=== PATIENT | male | born 1940 | race Caucasian/White ===

== ENCOUNTER → 2016-09-02 | Outpatient (CLI) | payer OTHER ==
[~2016-09-02] MED LIST: APIX1TAB3 PO; ASPCH81X PO; ASPI-113 PO; CHOL2000 PO; GLC/500 PO; GLC5 PO; LEVO100T7 PO; LEVO50TA6 PO; MAGN400T6 PO; OMEG10007 PO; PRLSR20 PO; TPRSR/100 PO; VERA120T2 PO; [UNRECOGNIZED DRUG - CODE] PO
[2016-09-02 12:21] LABS: BASO % 0.3 %; BASO ABS # 0.02 K/uL (0-0.2); COMPLETE YES; EOS % 1.5 %; IG% 0.2 %; LYMPH ABS # 2.23 K/uL (1.2-3.4); MEAN CELL VOLUME 94.2 fL (80-100); MEAN CORPUSCULAR HEMOGLOBIN 32.7 pg (25-34); MEAN CORPUSCULAR HGB CONC 34.8 g/dl (32-36); MONO % 9.5 %; NEUT % 51.5 %; PLATELET COUNT 130 K/uL (130-400); RED BLOOD COUNT 4.46 M/uL (4.7-6.1); WHITE BLOOD COUNT 6.02 K/uL (4.8-10.8)
[2016-09-02 12:33] LABS: ALT/SGPT 33 U/L (12-78); BLOOD UREA NITROGEN 22 mg/dl (7-18); BUN/CREATININE RATIO 13.9 (10-20); CARBON DIOXIDE 24 mmol/L (21-32); CHLORIDE 104 mmol/L (98-107); CHOLESTEROL 157 mg/dl (0-200); GLUCOSE 167 mg/dl (70-99); SODIUM 139 mmol/L (136-145)
[2016-09-02 12:38] LABS: ESTIMATED AVERAGE GLUCOSE 171 mg/dl; HA1C FLAG Normal (Normal)
[2016-09-02 12:44] LABS: ALB/GLOB RATIO 0.9 (0.9-2); ALKALINE PHOSPHATASE 53 U/L (45-117); AST/SGOT 29 U/L (15-37); CHOLESTEROL/HDL RATIO 4.8; HDL CHOLESTEROL 33 mg/dl; LDL CHOLESTEROL CALCULATED 92 mg/dl; PROSTATE SPECIFIC ANTIGEN 0.555 ng/ml (0.000-4.000); TRIGLYCERIDES 162 mg/dl (0-150); VERY LOW DENSITY LIPOPROT CALC 32 mg/dl
[2016-09-02 13:11] LABS: RATIO 28.2 mcg/mg (0-30.0)
== END | disposition home or self-care (01) ==
LOC: C.LABBFT 07:27
PROVIDERS: ATTEND Internal Medicine
DX: E11.29 Type 2 diabetes mellitus with other diabetic kidney complication (principal); D69.6 Thrombocytopenia, unspecified; Z12.5 Encounter for screening for malignant neoplasm of prostate

== ENCOUNTER → 2016-12-16 | Day surgery (SDC) | payer OTHER ==
[2016-11-26 12:34] VITALS: Ht 172.7 cm; Wt 109.1 kg
[~2016-12-16] VITALS: Ht 172.7 cm; Wt 109.1 kg
[~2016-12-16] MED LIST changes: +500ML BSS 0.3ML EPI 1:1000PF IRRIG ONE; +ACETAMINOPHEN 325 MG TAB PO PRN; +AMVISC PLUS 0.8ML SYRINGE INT OCU ONE; -ASPI-113 PO; +ATROPINE SULFATE 0.1 MG/ML 5ML SYR IV PRN; +BSS FLUSH ONE; +ENDOCOAT 0.85ML SYRINGE INT OCU ONE; +EpHEDrine SULFATE INJ 50 MG/ML AMP IV PRN; +EpINEphrine INJ 1MG/ML AMP 1 MG/ML AMP ONE; +LACTATED RINGER'S 1000ML 500 ML IV SCH; -LEVO50TA6 PO; +LIDOCAINE 4% OP SOLN DROP CHARGE ONE; +LIDOCAINE 4% OP SOLN DROP CHARGE OPR SCH; +LIDOCAINE HCL 1% MPF 2 ML VIAL ONE; +MIDAZOLAM HCL 1 MG/ML 2ML VIAL ONE; +MIX: 4ML BSS 1ML EPI 1:1000 PF TOP ONE; +MOXIFLOXACIN OPH SOLN PER DROP CHARGE ONE; +ONDANSETRON INJ 2 MG/ML 2 ML VIAL IV PRN; +PHENYLEPHRINE HCL 10% OP SOLN PER DROP CHARGE OPR SCH; +POVIDONE-IODINE OP SOLN 30 ML BTL ONE; +PROPARACAINE 0.5% OP SOLN PER DROP CHARGE OPR SCH; +TOBRAMYCIN/DEXAMETHASONE OPH OINT PER APPLN CHARGE ONE; -TPRSR/100 PO
[2016-12-16] MEDS: PHENYLEPHRINE HCL 10% OP SOLN PER DROP CHARGE OPR SCH ×3 (07:24→07:33)
[2016-12-16] MEDS: TROPICAMIDE 1% OP SOLN PER DROP CHARGE OPR SCH ×3 (07:25→07:34)
[2016-12-16] MEDS: CYCLOPENTOLATE HCL 1% OP SOLN PER DROP CHARGE OPR SCH ×3 (07:26→07:35)
[2016-12-16] MEDS: MOXIFLOXACIN OPH SOLN PER DROP CHARGE OPR SCH ×3 (07:28→07:36)
--- NOTE | 2016-12-16 07:37 | History & Physical Bridge - [place] ---
H&P Re-Evaluation Bridge Note: I have examined the patient, reviewed the History & Physical and in the interval since the performance of the History & Physical I have noted the following changes of clinical significance: No changes noted
--- NOTE | 2016-12-16 08:37 | [facility] Post Operative Brief Note ---
Immediate Operative Summary Operative Date Dec 16, 2016. Pre-Operative Diagnosis Right eye cataract Post-Operative Diagnosis Same as preop Procedure(s) Performed Right Cataract Phacoemulsification With Intraocular Lens Implant Surgeon Dr. Hodges Title Curator Surgeon(s) None Estimated Blood Loss 0 mL Findings right cataract Specimens None Complication(s) None Disposition
[2016-12-16 08:38] VITALS: TEMP 36.5
--- NOTE | 2016-12-16 08:38 | [facility] Operative Report ---
Operative Report Date of Service Dec 16, 2016. Operative Report Phaco with monofocal IOL DATE OF OPERATION: 12/16/16 PREOPERATIVE DIAGNOSIS: Senile nuclear cataract, right eye POSTOPERATIVE DIAGNOSIS: Senile nuclear cataract, right eye PROCEDURE PERFORMED: Phacoemulsification with intraocular lens implantation, right eye SURGEON: Dr. Chris Hodges ANESTHESIA: Topical with 1% intracameral lidocaine and monitored anesthesia care COMPLICATIONS: None DESCRIPTION OF PROCEDURE: After positively identifying the patient both verbally and by wristband in the preoperative area, the right eye was marked as the operative eye. The patient was then brought back to the operating room by the anesthesia and nursing staff where they were given a drop of Lidocaine and betadine into the operative eye. They were then sterilely prepped and draped in the standard fashion typical for ophthalmic surgery. Steri-strips were placed along the upper eyelids to keep the lashes back, and a lid speculum was placed into the operative eye. At this point, a documented time out was performed with members of the ophthalmology, nursing, and anesthesia staffs all agreeing upon the correct patient, correct location for surgery, correct procedure, and correct type and power of intraocular lens to be implanted. The microscope was then swung into position. First, a paracentesis wound was made using a sideport blade. Then, in sequence, 1% preservative-free lidocaine followed by Endocoat viscoelastic was injected into the anterior chamber. Next , the main incision was made with a keratome blade in triplanar fashion. A sharp cystotome was introduced into the eye and used to create a tear in the anterior capsule, which was directed into a continuous curvilinear capsulorrhexis using Utrata forceps. Hydrodissection was then performed with BSS on a flat-tip cannula. Next, the phacoemulsification handpiece was introduced into the eye and used to remove the nucleus in a [id number] fashion. This was done without complication and then the irrigation-aspiration handpiece was introduced into the eye and used to remove all remaining cortical and epinuclear material. Amvisc was then injected into the anterior chamber as well as into the capsular bag and using the lens injector system, an MX60 24.5 D lens, serial number [id number], and expiration date 06/2019 was injected into the capsular bag and rotated into the correct position. Next, the irrigation- aspiration handpiece was used to remove all remaining Amvisc. BSS was used to hydrate the main wound, and then BSS was injected into the paracentesis site to reach physiologic pressure and then the main wound was checked and found to be watertight. The patient was given drops of Vigamox and Tobradex ointment into the operative eye, and then the surrounding area was cleaned and dried. A clear plastic shield was placed over the eye and the patient was then sat up and taken from the operating room by the anesthesia staff having tolerated the procedure well and suffering no complications. DISPOSITION: The patient was returned to the recovery room in stable condition. I attest to the content of the Intraoperative Record and any orders documented therein. Any exceptions are noted below.
--- NOTE | 2016-12-16 08:39 | Discharge Instructions-SurgCtr ---
Discharge Instructions Date of Service Dec 16, 2016. Visit Reason for Visit: Cataract Right Eye Discharge Discharge Diagnosis / Problem: right cataract Discharge Goals Goal(s): Decrease discomfort, Improve function Medications Stopped Medications Name(s): Metformin stopped. Last dose Wednesday. Activity Recommendations Activity Limitations: as noted below Anesthesia . Post Anesthesia Instructions: If you have had General Anesthesia or IV Sedation: * Do not drive today. * Resume driving when surgeon permits. * Do not make important decisions or sign legal documents today. * Call surgeon for: 1. Temperature elevations greater than 101 degrees F. 2. Uncontrollable pain. 3. Excessive bleeding. 4. Persistent nausea and vomiting. 5. Medication intolerance (nausea, vomiting or rash). * For nausea and vomiting use only clear liquids such as: tea, soda, bouillon until nausea subsides, then gradually increase diet as tolerated. * If you have any concerns or questions, call your surgeon's office. If physician is unavailable and it is an emergency, call 911 or go to the nearest emergency room. . Instructions / Follow-Up Instructions / Follow-Up ACTIVITY RECOMMENDATIONS: * Light activities. * You may walk outside, read, watch television. * You may notice redness on the white part of the eye and some blurry vision - this is normal. MEDICATIONS: Resume previous medications unless instructed otherwise by your surgeon. Start all eye drops at 10:30 am today: * Eye drops (today): Prednisone - one drop in operative eye every 2 hours while awake Ofloxacin - one drop in operative eye every 2 hours while awake Bromfenac - one drop in operative eye daily SPECIAL CARE INSTRUCTIONS: * Tape plastic shield over eye to sleep at night. Call your doctor at with any concerns or problems. FOLLOW UP VISIT: Follow-up with Dr Hodges at [place] office as scheduled. Diet Recommendations Home Diet: no limitations Procedures Procedures Performed: Right Cataract Phacoemulsification With Intraocular Lens Implant Pending Studies Studies pending at discharge: no Medical Emergencies . Who to Call and When: Medical Emergencies: If at any time you feel your situation is an emergency, please call 911 immediately. . Non-Emergent Contact Non-Emergency issues call your: Surgeon . . "Provider Documentation" section prepared by Chris Hodges. .
--- NOTE | 2016-12-16 08:54 | Anesthesia Progress Nt - [facility] ---
Anesthesia Post Op Note Date & Time Dec 16, 2016 at 08:54 Vital Signs Pain Intensity: 0 Vital Signs Past 12 Hours Date Time Temp Pulse Resp B/P (MAP) Pulse Ox O2 Delivery O2 Flow Rate FiO2 12/16/16 08:38 36.5 81 16 116/76 (89) 95 Room Air 12/16/16 07:17 36.4 91 18 146/88 (107) 95 Room Air Notes Mental Status: alert / awake / arousable, participated in evaluation Pt Amnestic to Procedure: Yes Nausea / Vomiting: adequately controlled Pain: adequately controlled Airway Patency, RR, SpO2: stable & adequate BP & HR: stable & adequate Hydration State: stable & adequate Anesthetic Complications: no major complications apparent
[2016-12-16 09:01] VITALS: BP 110/69; PULSE 74; O2SAT 95
== END | disposition home or self-care (01) ==
LOC: X.SURG 06:34
PROVIDERS: ATTEND Ophthalmology
DX: H25.11 Age-related nuclear cataract, right eye (principal); I10 Essential (primary) hypertension; E11.9 Type 2 diabetes mellitus without complications; Z79.4 Long term (current) use of insulin; Z79.899 Other long term (current) drug therapy; Z79.82 Long term (current) use of aspirin

== ENCOUNTER → 2016-12-30 | Day surgery (SDC) | payer OTHER ==
[2016-12-25 07:24] VITALS: Ht 172.7 cm; Wt 109.1 kg
[~2016-12-30] VITALS: Ht 172.7 cm; Wt 109.1 kg
[~2016-12-30] MED LIST changes: -EpHEDrine SULFATE INJ 50 MG/ML AMP IV PRN; +FENTANYL CITRATE INJ 50 MCG/1 ML 2 ML VIAL ONE; +LIDOCAINE 4% OP SOLN DROP CHARGE OPL SCH; -LIDOCAINE 4% OP SOLN DROP CHARGE OPR SCH; -ONDANSETRON INJ 2 MG/ML 2 ML VIAL IV PRN; -PHENYLEPHRINE HCL 10% OP SOLN PER DROP CHARGE OPR SCH; +PROPARACAINE 0.5% OP SOLN PER DROP CHARGE OPL SCH; -PROPARACAINE 0.5% OP SOLN PER DROP CHARGE OPR SCH
[2016-12-30] MEDS: PHENYLEPHRINE HCL 2.5% OP SOLN PER DROP CHARGE OPL SCH ×3 (09:10→09:25)
[2016-12-30] MEDS: TROPICAMIDE 1% OP SOLN PER DROP CHARGE OPL SCH ×3 (09:11→09:26)
[2016-12-30] MEDS: CYCLOPENTOLATE HCL 1% OP SOLN PER DROP CHARGE OPL SCH ×3 (09:12→09:27)
[2016-12-30] MEDS: MOXIFLOXACIN OPH SOLN PER DROP CHARGE OPL SCH ×3 (09:13→09:28)
--- NOTE | 2016-12-30 10:09 | [facility] Post Operative Brief Note ---
Immediate Operative Summary Operative Date Dec 30, 2016. Pre-Operative Diagnosis Left Eye Cataract Post-Operative Diagnosis Same Procedure(s) Performed Left Cataract Phacoemulsification With Intraocular Lens Implant Surgeon Dr. Ayleen Hodges Belling Machine Operator Surgeon(s) None Estimated Blood Loss None Findings left cataract Specimens None Complication(s) None Disposition
[2016-12-30 10:10] VITALS: TEMP 36.2
--- NOTE | 2016-12-30 10:10 | [facility] Operative Report ---
Operative Report Date of Service Dec 30, 2016. Operative Report DATE OF OPERATION: 12/30/16 PREOPERATIVE DIAGNOSIS: Senile nuclear cataract, left eye POSTOPERATIVE DIAGNOSIS: Senile nuclear cataract, left eye PROCEDURE PERFORMED: Phacoemulsification with intraocular lens implantation, left eye SURGEON: Dr. Chris Hodges ANESTHESIA: Topical with 1% intracameral lidocaine and monitored anesthesia care COMPLICATIONS: None DESCRIPTION OF PROCEDURE: After positively identifying the patient both verbally and by wristband in the preoperative area, the left eye was marked as the operative eye. The patient was then brought back to the operating room by the anesthesia and nursing staff where they were given a drop of Lidocaine and betadine into the operative eye. They were then sterilely prepped and draped in the standard fashion typical for ophthalmic surgery. Steri-strips were placed along the upper eyelids to keep the lashes back, and a lid speculum was placed into the operative eye. At this point, a documented time out was performed with members of the ophthalmology, nursing, and anesthesia staffs all agreeing upon the correct patient, correct location for surgery, correct procedure, and correct type and power of intraocular lens to be implanted. The microscope was then swung into position. First, a paracentesis wound was made using a sideport blade. Then, in sequence, 1% preservative-free lidocaine followed by Endocoat viscoelastic was injected into the anterior chamber. Next , the main incision was made with a keratome blade in triplanar fashion. A sharp cystotome was introduced into the eye and used to create a tear in the anterior capsule, which was directed into a continuous curvilinear capsulorrhexis using Utrata forceps. Hydrodissection was then performed with BSS on a flat-tip cannula. Next, the phacoemulsification handpiece was introduced into the eye and used to remove the nucleus in a [id number] fashion. This was done without complication and then the irrigation-aspiration handpiece was introduced into the eye and used to remove all remaining cortical and epinuclear material. Amvisc was then injected into the anterior chamber as well as into the capsular bag and using the lens injector system, an MX60 24.5 D lens, serial number [id number], and expiration date 06/2019 was injected into the capsular bag and rotated into the correct position. Next, the irrigation- aspiration handpiece was used to remove all remaining Amvisc. BSS was used to hydrate the main wound, and then BSS was injected into the paracentesis site to reach physiologic pressure and then the main wound was checked and found to be watertight. The patient was given drops of Vigamox and Tobradex ointment into the operative eye, and then the surrounding area was cleaned and dried. A clear plastic shield was placed over the eye and the patient was then sat up and taken from the operating room by the anesthesia staff having tolerated the procedure well and suffering no complications. DISPOSITION: The patient was returned to the recovery room in stable condition. I attest to the content of the Intraoperative Record and any orders documented therein. Any exceptions are noted below.
--- NOTE | 2016-12-30 10:11 | Discharge Instructions-SurgCtr ---
Discharge Instructions Date of Service Dec 30, 2016. Visit Reason for Visit: Left Cataract Discharge Discharge Diagnosis / Problem: left cataract Discharge Goals Goal(s): Decrease discomfort, Improve function Medications Stopped Medications Name(s): Metformin stopped on Wednesday Activity Recommendations Activity Limitations: as noted below Anesthesia . Post Anesthesia Instructions: If you have had General Anesthesia or IV Sedation: * Do not drive today. * Resume driving when surgeon permits. * Do not make important decisions or sign legal documents today. * Call surgeon for: 1. Temperature elevations greater than 101 degrees F. 2. Uncontrollable pain. 3. Excessive bleeding. 4. Persistent nausea and vomiting. 5. Medication intolerance (nausea, vomiting or rash). * For nausea and vomiting use only clear liquids such as: tea, soda, bouillon until nausea subsides, then gradually increase diet as tolerated. * If you have any concerns or questions, call your surgeon's office. If physician is unavailable and it is an emergency, call 911 or go to the nearest emergency room. . Instructions / Follow-Up Instructions / Follow-Up ACTIVITY RECOMMENDATIONS: * Light activities. * You may walk outside, read, watch television. * You may notice redness on the white part of the eye and some blurry vision - this is normal. MEDICATIONS: Resume previous medications unless instructed otherwise by your surgeon. Start all eye drops at 12 pm today: * Eye drops (today): Prednisone - one drop in operative eye every 2 hours while awake Ofloxacin - one drop in operative eye every 2 hours while awake Bromfenac - one drop in operative eye daily SPECIAL CARE INSTRUCTIONS: * Tape plastic shield over eye to sleep at night. Call your doctor at with any concerns or problems. FOLLOW UP VISIT: Follow-up with Dr Hodges at [place] office as scheduled. Diet Recommendations Home Diet: no limitations Procedures Procedures Performed: Left Cataract Phacoemulsification With Intraocular Lens Implant Pending Studies Studies pending at discharge: no Medical Emergencies . Who to Call and When: Medical Emergencies: If at any time you feel your situation is an emergency, please call 911 immediately. . Non-Emergent Contact Non-Emergency issues call your: Surgeon . . "Provider Documentation" section prepared by Chris Hodges. .
--- NOTE | 2016-12-30 10:31 | Anesthesia Progress Nt - [facility] ---
Anesthesia Post Op Note Date & Time Dec 30, 2016 at 10:31 Vital Signs Pain Intensity: 0 Vital Signs Past 12 Hours Date Time Temp Pulse Resp B/P (MAP) Pulse Ox O2 Delivery O2 Flow Rate FiO2 12/30/16 10:10 36.2 91 16 129/88 (102) 94 Room Air 12/30/16 09:01 36.3 79 16 127/85 (99) 96 Room Air Notes Mental Status: alert / awake / arousable, participated in evaluation Pt Amnestic to Procedure: Yes Nausea / Vomiting: adequately controlled Pain: adequately controlled Airway Patency, RR, SpO2: stable & adequate BP & HR: stable & adequate Hydration State: stable & adequate Anesthetic Complications: no major complications apparent
[2016-12-30 10:33] VITALS: BP 116/77; PULSE 69; O2SAT 95
== END | disposition home or self-care (01) ==
LOC: X.SURG 08:40
PROVIDERS: ATTEND Ophthalmology
DX: H25.12 Age-related nuclear cataract, left eye (principal); I10 Essential (primary) hypertension; E11.9 Type 2 diabetes mellitus without complications; Z95.0 Presence of cardiac pacemaker; Z79.82 Long term (current) use of aspirin; Z79.899 Other long term (current) drug therapy; Z79.84 Long term (current) use of oral hypoglycemic drugs

== ENCOUNTER → 2017-02-22 | Outpatient (CLI) | payer OTHER ==
[~2017-02-22] MED LIST changes: -500ML BSS 0.3ML EPI 1:1000PF IRRIG ONE; -ACETAMINOPHEN 325 MG TAB PO PRN; -AMVISC PLUS 0.8ML SYRINGE INT OCU ONE; -ATROPINE SULFATE 0.1 MG/ML 5ML SYR IV PRN; -BSS FLUSH ONE; -ENDOCOAT 0.85ML SYRINGE INT OCU ONE; -EpINEphrine INJ 1MG/ML AMP 1 MG/ML AMP ONE; -FENTANYL CITRATE INJ 50 MCG/1 ML 2 ML VIAL ONE; -LACTATED RINGER'S 1000ML 500 ML IV SCH; -LIDOCAINE 4% OP SOLN DROP CHARGE ONE; -LIDOCAINE 4% OP SOLN DROP CHARGE OPL SCH; -LIDOCAINE HCL 1% MPF 2 ML VIAL ONE; -MIDAZOLAM HCL 1 MG/ML 2ML VIAL ONE; -MIX: 4ML BSS 1ML EPI 1:1000 PF TOP ONE; -MOXIFLOXACIN OPH SOLN PER DROP CHARGE ONE; -POVIDONE-IODINE OP SOLN 30 ML BTL ONE; -PROPARACAINE 0.5% OP SOLN PER DROP CHARGE OPL SCH; -TOBRAMYCIN/DEXAMETHASONE OPH OINT PER APPLN CHARGE ONE
[2017-02-22 12:21] LABS: HEMATOCRIT 42.2 % (42-52); MEAN CELL VOLUME 94.8 fL (80-100); MEAN CORPUSCULAR HEMOGLOBIN 33.3 pg (25-34); MEAN CORPUSCULAR HGB CONC 35.1 g/dl (32-36); MEAN PLATELET VOLUME 10.9 fL (7.4-10.4); PLATELET COUNT 117 K/uL (130-400); RED BLOOD COUNT 4.45 M/uL (4.7-6.1); WHITE BLOOD COUNT 5.69 K/uL (4.8-10.8)
[2017-02-22 12:49] LABS: ESTIMATED AVERAGE GLUCOSE 166 mg/dl; HA1C FLAG Normal (Normal)
[2017-02-22 13:33] LABS: ALT/SGPT 30 U/L (12-78); AST/SGOT 23 U/L (15-37); BLOOD UREA NITROGEN 16 mg/dl (7-18); BUN/CREATININE RATIO 11.2 (10-20); CALCIUM 8.8 mg/dl (8.5-10.1); CARBON DIOXIDE 26 mmol/L (21-32); CHLORIDE 104 mmol/L (98-107); CHOLESTEROL 164 mg/dl (0-200); CREATININE 1.45 mg/dl (0.60-1.40); GLUCOSE 182 mg/dl (70-99); POTASSIUM 3.9 mmol/L (3.5-5.1); SODIUM 137 mmol/L (136-145); TRIGLYCERIDES 172 mg/dl (0-150); VERY LOW DENSITY LIPOPROT CALC 34 mg/dl
[2017-02-22 13:41] LABS: ALB/GLOB RATIO 0.9 (0.9-2); ALKALINE PHOSPHATASE 54 U/L (45-117); CHOLESTEROL/HDL RATIO 4.6; HDL CHOLESTEROL 36 mg/dl; LDL CHOLESTEROL CALCULATED 94 mg/dl
== END | disposition home or self-care (01) ==
LOC: C.LABBFT 07:19
PROVIDERS: ATTEND Internal Medicine
DX: I48.91 Unspecified atrial fibrillation (principal); E11.29 Type 2 diabetes mellitus with other diabetic kidney complication; E03.9 Hypothyroidism, unspecified

== ENCOUNTER 2021-11-23 08:08 | Inpatient (IN) ==
[2021-11-23] MEDS ORDERED: dilTIAZem HCl 5 MG/ML 5 ML VIAL IV ONE (08:41)
[2021-11-23] MEDS ORDERED: dilTIAZem HCl 5 MG/ML 5 ML VIAL IV STA (08:41)
[2021-11-23] MEDS ORDERED: ASPIRIN 81 MG CHEW PO STA (08:41)
[2021-11-23] MEDS ORDERED: ONDANSETRON INJ 2 MG/ML 2 ML VIAL IV STA (08:41)
[2021-11-23] MEDS ORDERED: STAT IV Infusion **Titration per Protocol STA (08:41)
[2021-11-23] MEDS: SODIUM CHLORIDE 0.9% 1000ML 1,000 ML IV SCH ×2 (08:47→16:59)
[2021-11-23 09:01] LABS: Basophils # (auto) 0.03 K/uL (0-0.2); Basophils % (auto) 0.4 %; Eosinophils # (auto) 0.17 K/uL (0-0.50); Eosinophils % (auto) 2.2 %; Hematocrit (blood only) 39.2 % (40.1-51.0); Hemoglobin 13.7 g/dl (14.0-18.0); Immature Granulocytes # (auto) 0.02 K/uL (0.00-0.02); Immature Granulocytes % (auto) 0.3 %; Lymphocytes # (auto) 2.16 K/uL (1.2-3.4); Lymphocytes % (auto) 28.3 %; Mean Corpuscular Hemoglobin 30.8 pg (25.0-34.0); Mean Corpuscular Hgb Conc 34.9 g/dL (32.0-36.0); Mean Corpuscular Volume 88.1 fL (80.0-100.0); Mean Platelet Volume 9.9 fL (9.4-12.4); Monocytes # (auto) 0.69 K/uL (0.24-0.82); Neutrophils # (auto) 4.56 K/uL (1.4-6.5); Neutrophils % (auto) 59.8 %; Platelet Count 156 K/uL (130-400); RDW Coefficient of Variation 12.1 % (11.5-14.5); Red Blood Count 4.45 M/uL (4.63-6.08); White Blood Count 7.63 K/ul (4.8-10.8)
[2021-11-23] MEDS: dilTIAZem HCL 125 MG in DEXTROSE 5% 100 ML IV SCH ×2 (09:02→23:28)
--- NOTE | 2021-11-23 09:04 | XRay Report ---
XR chest 1V portable HISTORY: Shortness of breath. Atypical Chest Pain COMPARISON: Chest 11/26/2020. FINDINGS: No pneumothorax. No pleural effusions. The cardiac silhouette remains borderline enlarged. The left-sided dual-chamber pacemaker. No change in the interstitial thickening/fibrotic change and l ow lung volumes. No evidence for pulmonary edema. No new focal lung consolidations to suggest pneumon ia. IMPRESSION: Chronic interstitial thickening/fibrotic change persists. Otherwise, no acute process within the ches t. ACT 112: Negative or not required by law. Electronically signed by: Anand Estrada M.D. 11/23/2021 9:01 AM
--- NOTE | 2021-11-23 09:10 | Emergency Department Note ---
History of Present Illness General Chief Complaint: Arrhythmia/Palpitations Stated Complaint: PALPITATIONS Time Seen by Provider: 11/23/21 08:22 History of Present Illness Provider Complaint: + palpitations and + atrial fibrillation Onset (ago): 1 day(s) Duration: + Worsening Severity: similar to previous episodes (history of afib) Current Pain Intensity: 3 Context: + occurred during rest Arrhythmia history: + atrial fibrillation, + on anti-coagulants (eliquis) and + pacemaker Associated symptoms: + chest pain and + nausea; no shortness of breath, no syncope, no vomiting, no diaphoresis, no cough or no muscle cramps Home Medications Medication Instructions Recorded Confirmed Type aspirin 81 mg tablet,delayed 81 mg PO DAILY 10/14/18 11/23/21 History release cholecalciferol (vitamin D3) 50 2,000 units PO DAILY 10/14/18 11/23/21 History mcg (2,000 unit) tablet lancets 33 gauge (OneTouch Delica #100 ea 10/14/18 08/26/21 Rx Lancets) magnesium oxide 400 mg (241.3 mg 400 mg PO DAILY 10/14/18 11/23/21 History magnesium) tablet omega-3 acid ethyl esters 1 gram 2 cap PO DAILY 10/14/18 11/23/21 History capsule dulaglutide 0.75 mg/0.5 mL 0.75 mg (0.5 mL) subcut .COMPLEX 11/25/20 11/23/21 Rx [facility] metformin 500 mg tablet 1,000 mg PO .COMPLEX #270 tabs 01/31/21 11/23/21 Rx metoprolol succinate 200 mg See Rx Instructions .Route 03/05/21 11/23/21 Rx tablet,extended release 24 hr .COMPLEX #30 tabs apixaban 5 mg tablet 5 mg PO BID #180 tabs 05/15/21 11/23/21 Rx digoxin 125 mcg (0.125 mg) tablet 125 mcg PO DAILY #90 tabs 05/15/21 11/23/21 Rx glipizide 10 mg tablet 10 mg PO BID #180 tabs 05/15/21 11/23/21 Rx omeprazole 20 mg capsule,delayed 20 mg PO DAILY #90 caps 05/15/21 11/23/21 Rx release rosuvastatin 5 mg tablet 5 mg PO .COMPLEX #15 tabs 05/15/21 11/23/21 Rx verapamil 180 mg tablet,extended 180 mg PO DAILY #90 tabs 05/15/21 11/23/21 Rx release tramadol 50 mg tablet 50 mg PO BID cough #40 tabs 07/14/21 11/23/21 Rx blood sugar diagnostic #100 ea 07/31/21 08/26/21 Rx levothyroxine 112 mcg tablet See Rx Instructions .Route 11/03/21 11/23/21 Rx .COMPLEX #90 tabs Allergies Allergy/AdvReac Type Severity Reaction Status Date / Time simvastatin Allergy Intermediate RASH, Verified 08/26/21 14:31 ITCHING Penicillins Allergy Unknown DOESN'T Verified 08/26/21 14:31 KNOW tadalafil AdvReac Intermediate RUNNY Verified 08/26/21 14:31 NOSE, ACHINESS atorvastatin AdvReac Mild MUSCLE Verified 08/26/21 14:31 ACHES Past Med/Surg History Medical History (Updated 11/23/21 @ 13:40 by Roosevelt Rodriguez) Acid reflux disease Anticoagulant long-term use Arteriosclerotic cardiovascular disease Biceps muscle tear Biceps tendon rupture Bladder cancer 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, uncontrolled Dyslipidemia Erythema migrans (Lyme disease) Gastritis History of squamous cell carcinoma of skin Hypothyroidism Onychomycosis Permanent atrial fibrillation Thrombocytopenia Tubular adenoma of colon (11/10/13) Vitamin D deficiency Surgical History (Updated 11/23/21 @ 11:13 by Ann Olivares PA-C) History of AAA (abdominal aortic aneurysm) repair History of colonoscopy with polypectomy (11/10/13) tubular adenoma History of inguinal hernia repair History of permanent cardiac pacemaker placement History of sinus surgery Hx of tonsillectomy S/P cataract surgery right - 12/16/16 left 12/30/16 Family History Father Aortic aneurysm Brother Coronary heart disease Sudden cardiac arrest Sister History of colon cancer Denies family history of Ovarian cancer Prostate cancer Diabetes Depression Myocardial infarction Breast cancer Lung cancer Colorectal cancer Social History Smoking Status: Former smoker Age Started Using Tobacco: 16; Age Quit Using Tobacco: 25; Second Hand Exposure: No; Do You Dip or Chew Tobacco: No; Tobacco Cessation Education Requested by Patient: No Hx Alcohol Use: No Hx Substance Use: No Preferred Language: [place]an Communication Ability: Effective Visual Impairment: No Limitations Hearing Ability: Hard of Hearing 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 Beliefs That Will Affect Care: None marital status: Current Living Situation: Spouse current occupational status: retired Other Information That Helps Us Care for You: No Feels Safe at Home: Yes Safety Concerns: Feels Safe At This Time Childhood Exposure to Second-Hand Smoke: No caffeine: Yes Dental Care, Regularly: No Physical Activity Frequency: Daily Seatbelt Use: always Sunscreen Use: No Assistive Devices: Denture - Upper, Denture - Lower, Glasses, Hearing Aid - Left and Hearing Aid - Right Review of Systems A total of 10 systems reviewed and were otherwise negative Physical Exam Vital Signs: Vital Signs - 24 hr 11/23/21 08:15 11/23/21 09:17 11/23/21 09:37 Temperature 36.3 C L Temperature Source Temporal Artery Sc an Pulse Rate 116 H Pulse Rate [Apical ] 98 H Pulse Rhythm [Apic al] Irregular Pulse Strength [Ap ical] Normal Respiratory Rate 24 20 Respiratory Effort / Characteristics Spontaneous Non-Labored Sponta neous Respiratory Depth Normal Respiratory Patter n Regular Regular Blood Pressure 128/76 Blood Pressure [Ri ght Arm] 128/76 Blood Pressure Destiney n 93 Blood Pressure Detsiney n [Right Arm] 93 Blood Pressure Pos ition [Right Arm] Sitting Pulse Oximetry 94 95 Oxygen Delivery Me thod Room Air Room Air Room Air Sepsis Recent Feve r Within 48 Hours No Sepsis New/Unexpla ined Change in Men bernadine Status N/A Sepsis Action Take n by Nursing No Action Required 11/23/21 10:00 Temperature Temperature Source Pulse Rate Pulse Rate [Apical ] 94 H Pulse Rhythm [Apic al] Irregular Pulse Strength [Ap ical] Respiratory Rate 20 Respiratory Effort / Characteristics Spontaneous Respiratory Depth Normal Respiratory Patter n Regular Blood Pressure Blood Pressure [Ri ght Arm] 139/75 Blood Pressure Destiney n Blood Pressure Destiney n [Right Arm] 96 Blood Pressure Pos ition [Right Arm] Sitting Pulse Oximetry 95 Oxygen Delivery Me thod Room Air Sepsis Recent Feve r Within 48 Hours Sepsis New/Unexpla ined Change in Men bernadine Status Sepsis Action Take n by Nursing Physical Exam: Physical Exam GENERAL: Distressed. HENT: Exam performed. - Head: Normocephalic and atraumatic. - Right Ear: External ear normal. No mastoid tenderness. - Left Ear: External ear normal. No mastoid tenderness. - Mouth/Throat: The oropharynx is clear and moist. No trismus in the jaw. No dental abscesses or uvula swelling. No oropharyngeal exudate or tonsillar abscesses. EYES: Conjunctivae and EOM are normal. Pupils are equal, round, and reactive to light. Right eye exhibits no discharge. Left eye exhibits no discharge. No scleral icterus. NECK: Normal range of motion. Neck supple. No JVD present. No spinous process tenderness present. No carotid bruit present. No rigidity. No tracheal deviation and normal range of motion present. No Brudzinski's sign and no Kernig's sign noted. CV: Tachycardic rate, irregular rhythm, normal heart sounds and intact distal pulses. There is no peripheral edema. Palpable radial pulses bue. PULM/CHEST: Effort normal and breath sounds normal. No respiratory distress. No stridor. He has no wheezes. He has no rales. - Chest Wall: He exhibits no tenderness. ABD: The abdomen is soft. NEURO: He is alert and oriented to person, place, and time. He has normal strength. No cranial nerve deficit or sensory deficit. Coordination and gait normal. GCS eye subscore is 4. GCS verbal subscore is 5. GCS motor subscore is 6. Cerebellar tests wnl. SKIN: Skin is warm and dry. He is not diaphoretic. PSYCH: He has a normal mood and affect. Behavior is normal. Judgment and thought content normal. Course Course 08: The patient was evaluated in room B12. A complete history and physical exam was performed Cardiac monitoring: An order was placed for continuous cardiac monitoring. The monitor shows a rate of 140-160 with atrial fibrilation rhythm Large-bore IV access was obtained. Patient was found to be in atrial fibrillation with RVR. Cardizem 20 mg IV push was administered to the patient which improved his ventricular rate. Patient be started on Cardizem drip. 0955: Signs stable on Cardizem drip. Labs and imaging within normal limits. [facility] be [facility] to the [facility]. Suda notified. Administered Medications Sodium Chloride (Nss 1000ml) 1,000 mls @ 125 mls/hr IV .Q8H LYNETTE Stop: 12/23/21 08:44 Last Admin: 11/23/21 08:47 Dose: 125 mls/hr Documented By: RADHA Diltiazem HCl 125 mg/ Dextrose 125 mls @ 5 mls/hr IV .Q24H LYNETTE; Protocol Stop: 12/23/21 08:44 Last Titration: 11/23/21 10:15 Dose: 10 mg/hr, 10 mls/hr Documented By: RADHA Co-signed By: [id number] Admin: 11/23/21 09:02 Dose: 5 mg/hr, 5 mls/hr Documented By: RADHA Co-signed By: TRUDI Magnesium Sulfate/Dextrose (Magnesium Sulfate / D5w) 1 gm in 100 mls @ 50 mls/hr IV Q2H LYNETTE Stop: 11/23/21 15:40 Last Admin: 11/23/21 12:18 Dose: 50 mls/hr Documented By: FABIANO Insulin Aspart (Insulin Aspart Per Unit) 0 units SC ACHS LYNETTE Stop: 12/23/21 11:40 Last Admin: 11/23/21 12:18 Dose: 3 units Documented By: FABIANO Co-signed By: [id number] Rosuvastatin Calcium (Rosuvastatin Calcium 5 Mg Tab) 5 mg PO MoTh@0900 [facility] Stop: 12/23/21 08:59 Last Admin: 11/23/21 12:29 Dose: 5 mg Documented By: FABIANO Discontinued Medications Aspirin (Aspirin 81 Mg Chew) 324 mg PO NOW STA Stop: 11/23/21 08:42 Last Admin: 11/23/21 08:51 Dose: 324 mg Documented By: RADHA Diltiazem HCl (Diltiazem Hcl 5 Mg/Ml 5 Ml Vial) Confirm Administered Dose 25 mg IV .STK-MED ONE Stop: 11/23/21 08:42 Last Admin: 11/23/21 08:46 Dose: 20 mg Documented By: RADHA Co-signed By: FRANCES Diltiazem HCl (Diltiazem Hcl 5 Mg/Ml 5 Ml Vial) 20 mg IV NOW STA Stop: 11/23/21 08:42 Last Admin: 11/23/21 08:46 Dose: Not Given Documented By: RADHA Digoxin 125 mcg/ Syringe 10 mls @ 2 mls/min IV ONE ONE Stop: 11/23/21 11:49 Last Admin: 11/23/21 12:18 Dose: 2 mls/min Documented By: FABIANO Miscellaneous (Stat Iv Infusion Titration Per Protocol) 1 each N/A NOW STA Stop: 11/23/21 08:42 Last Admin: 11/23/21 09:06 Dose: Not Given Documented By: RADHA Ondansetron HCl (Ondansetron Inj 2 Mg/Ml 2 Ml Vial) 4 mg IV NOW STA Stop: 11/23/21 08:42 Last Admin: 11/23/21 08:51 Dose: 4 mg Documented By: RADHA Medical Decision Making Laboratory Data Result diagrams: 11/23/21 08:32 11/23/21 08:32 Lab Results 11/23/21 11/23/21 11/23/21 Range/Units 08:32 08:32 08:32 WBC 7.63 (4.8-10.8) K/ul RBC 4.45 L (4.63-6.08) M/uL Hgb 13.7 L (14.0-18.0) g/dl Hct 39.2 L (40.1-51.0) % MCV 88.1 (80.0-100.0) fL MCH 30.8 (25.0-34.0) pg MCHC 34.9 (32.0-36.0) g/dL RDW Std Deviation 39.0 (36.4-46.3) fL RDW Coeff of Shazia 12.1 (11.5-14.5) % Plt Count 156 (130-400) K/uL MPV 9.9 (9.4-12.4) fL Immature Gran % (Auto) 0.3 % Neut % (Auto) 59.8 % Lymph % (Auto) 28.3 % Hardin % (Auto) 9.0 % Eos % (Auto) 2.2 % Baso % (Auto) 0.4 % Neut # (Auto) 4.56 (1.4-6.5) K/uL Lymph # (Auto) 2.16 (1.2-3.4) K/uL Hardin # (Auto) 0.69 (0.24-0.82) K/uL Eos # (Auto) 0.17 (0-0.50) K/uL Baso # (Auto) 0.03 (0-0.2) K/uL Immature Gran # (Auto) 0.02 (0.00-0.02) K/uL PT 12.2 H (9.0-12.0) Seconds INR 1.2 H (0.9-1.1) APTT 28.8 (21.0-31.0) Seconds PTT Ratio 1.0 Sodium 133 L (136-145) mmol/L Potassium 4.0 (3.5-5.1) mmol/L Chloride 95 L (98-107) mmol/L Carbon Dioxide 27 (21-32) mmol/L Anion Gap 11 (3-11) BUN 15 (6-23) mg/dl Creatinine 1.33 (0.6-1.4) mg/dl Est Cr Clr Drug Dosing 46.0 ml/min Est GFR ( Amer) 57.7 ml/min Est GFR (Non-Af Amer) 49.8 ml/min BUN/Creatinine Ratio 11.3 (10-20) Glucose 182 H (70-99(Fasting)) mg/dl Calcium 9.4 (8.5-10.1) mg/dl Magnesium 1.7 (1.7-2.4) mg/dl Troponin I High Sens 14.5 (0-20) pg/ml Lipase 19 (11-82) U/L Digoxin (0.8-2.0) ng/ml SARS-CoV-2, RNA, NAAT (NEGATIVE) 11/23/21 11/23/21 Range/Units 09:19 09:24 WBC (4.8-10.8) K/ul RBC (4.63-6.08) M/uL Hgb (14.0-18.0) g/dl Hct (40.1-51.0) % MCV (80.0-100.0) fL MCH (25.0-34.0) pg MCHC (32.0-36.0) g/dL RDW Std Deviation (36.4-46.3) fL RDW Coeff of Shazia (11.5-14.5) % Plt Count (130-400) K/uL MPV (9.4-12.4) fL Immature Gran % (Auto) % Neut % (Auto) % Lymph % (Auto) % Hardin % (Auto) % Eos % (Auto) % Baso % (Auto) % Neut # (Auto) (1.4-6.5) K/uL Lymph # (Auto) (1.2-3.4) K/uL Hardin # (Auto) (0.24-0.82) K/uL Eos # (Auto) (0-0.50) K/uL Baso # (Auto) (0-0.2) K/uL Immature Gran # (Auto) (0.00-0.02) K/uL PT (9.0-12.0) Seconds INR (0.9-1.1) APTT (21.0-31.0) Seconds PTT Ratio Sodium (136-145) mmol/L Potassium (3.5-5.1) mmol/L Chloride (98-107) mmol/L Carbon Dioxide (21-32) mmol/L Anion Gap (3-11) BUN (6-23) mg/dl Creatinine (0.6-1.4) mg/dl Est Cr Clr Drug Dosing ml/min Est GFR ( Amer) ml/min Est GFR (Non-Af Amer) ml/min BUN/Creatinine Ratio (10-20) Glucose (70-99(Fasting)) mg/dl Calcium (8.5-10.1) mg/dl Magnesium (1.7-2.4) mg/dl Troponin I High Sens (0-20) pg/ml Lipase (11-82) U/L Digoxin 0.5 L (0.8-2.0) ng/ml SARS-CoV-2, RNA, NAAT NEGATIVE (NEGATIVE) Imaging Data Radiologist's Impression: Chest X-Ray 11/23/21 08:42 XR chest 1V portable HISTORY: Shortness of breath. Atypical Chest Pain COMPARISON: Chest 11/26/2020. FINDINGS: No pneumothorax. No pleural effusions. The cardiac silhouette remains borderline enlarged. The left-sided dual-chamber pacemaker. No change in the interstitial thickening/fibrotic change and low lung volumes. No evidence for pulmonary edema. No new focal lung consolidations to suggest pneumonia. IMPRESSION: Chronic interstitial thickening/fibrotic change persists. Otherwise, no acute process within the chest. ACT 112: Negative or not required by law. Electronically signed by: Anand Estrada M.D. 11/23/2021 9:01 AM ECG Data Additional Comments: EKG #1 at 0822: Atrial fibrillation with a rate of 139. QRS and QTc intervals within normal limits. Isolation ST depression. EKG #2 at 0845 status post 20 mg of Cardizem IV push: Atrial flutter with rate of 104. QRS and QTc intervals within normal limits. No ST elevation or ST depression. T wave inversion in lead I and aVL. PVCs present. [facility] Narrative 0822: The patient was evaluated in room B12. A complete history and physical exam was performed Cardiac monitoring: An order was placed for continuous cardiac monitoring. The monitor shows a rate of 140-160 with atrial fibrilation rhythm Large-bore IV access was obtained. Patient was found to be in atrial fibrillation with RVR. Cardizem 20 mg IV push was administered to the patient which improved his ventricular rate. Patient be started on Cardizem drip. 0955: Signs stable on Cardizem drip. Labs and imaging within normal limits. Patient be admitted to the [facility] team. Jana notified. Impression & Plan Atrial fibrillation with rapid ventricular response Critical Care Time Critical Care Time: Yes Total Critical Care Time: 38 I have personally spent greater than 38 minutes of critical care time in the direct management of this patient. This includes bedside care, interpretation of diagnostic studies, and testing, discussion with consultants, patient, and family members, and other required patient management activities. This 38 minutes is in excess of all separately billable procedures. Discharge Plan Visit Data Chief Complaint: Arrhythmia/Palpitations Stated Complaint: PALPITATIONS ED Provider: Roosevelt Rodriguez Discharge Problem: Atrial fibrillation with rapid ventricular response Patient Disposition: Admitted As Inpatient Discharge Instructions Interventions: ED Discharge Assessment Last Done: 11/23/21 10:41
[2021-11-23 09:14] LABS: INR 1.2 (0.9-1.1); Partial Thromboplastin Time 28.8 Seconds (21.0-31.0); Prothrombin Time 12.2 Seconds (9.0-12.0)
[2021-11-23 09:22] LABS: BUN Creatinine Ratio 11.3 (10-20); Calcium 9.4 mg/dl (8.5-10.1); Est GFR (African American) 57.7 ml/min; Est GFR (Non-African American) 49.8 ml/min; Magnesium 1.7 mg/dl (1.7-2.4)
[2021-11-23 09:27] LABS: Troponin I High Sensitivity 14.5 pg/ml (0-20)
--- NOTE | 2021-11-23 10:10 | History & Physical Report ---
Date of Service November 23, 2021 Assessment & Plan (1) Atrial fibrillation with RVR: Plan: Patient anticoagulated on apixaban 5 mg p.o. 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 fib burden Patient with a history of hypothyroid, last TSH check 6 months ago, repeat pending COVID-negative CXR: Chronic interstitial thickening/fibrotic change similar to prior. No acute process No leukocytosis, hemoglobin 13.7, sodium 133, potassium 4.0, magnesium 1.7 on admission High-sensitivity troponin normal on admission Cardiology following, last office visit 07/25 with Jason Combs PA-C. Stress echo 07/22/2021: Baseline ST segment abnormalities with depressions in [id number], no diagnostic ST changes at peak stress and max heart rate. EF 55-59%. No pulmonary hypertension. - Cardiology consulted, will make NPO at midnight pending possible cardioversion. (2) Pacemaker: Plan: - 2/2 history of asymptomatic SSS - Due for replacement in 1-2 years. To patient's knowledge has been functioning properly. (3) History of AAA (abdominal aortic aneurysm) repair: Plan: - Had a 5.6 cm AAA repaired at the end of August of this year at [facility], after incidentally being found during work-up for bladder tumor. - Did well postoperatively, discharged home on POD #1. - Follows with Dr. Juan Howard MD for this. (4) Bladder tumor: Plan: - s/p TURP at beginning of month, patient with a few days of hematuria and dysuria s/p procedure, has since resolved. - Has an appt this with urology in [facility] [address] to discuss next steps. 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 - Insulin regimen based on weight, 8 units Lantus twice daily when on DM2 diet, for now 5 units Lantus BID while on clear liquid diet. - Accu-Cheks ACHS. - A1c in AM. - Diabetic nephropathy, creatinine 1.23, GFR 49.8, patient's baseline. - Renally dose medications as able, avoid nephrotoxins. (6) Acid reflux disease: Plan: - Continue PPI, convert home omeprazole to hospital formulary. (7) Dyslipidemia: Plan: - Continue statin. (8) Hypothyroidism: Plan: - Continue levothyroxine daily. (9) Vitamin D deficiency: Plan: - Continue vitamin D supplementation. (10) Interstitial lung disease: Plan: - Unclear etiology, follows with Dr. Abernathy and has had workup, he is not a candidate for lung biopsy. He is minimally symptomatic. No evidence of respiratory distress today. - Surveillance for now with Mucinex prn. Plan - Admit to PCU. - SCDs, Eliquis fro VTE ppx. - DNR/DNI. History of Present Illness Primary Care Provider: DO Cheng Kirkpatrick is an 81-year-old male with past medical history significant for A. fib on Eliquis, AAA repair in August at [facility], interstitial lung disease, bladder cancer, DM2, CKD, GERD, hypertension, hyperlipidemia, pacemaker present d/t SSS who presents today with palpitations, shortness of breath, and general fatigue and weakness over the past 2-3 days. Patient recently had a TURBT earlier this month for bladder mass suspicious for malignancy, had been off Eliquis for 48-hour. At that time, he recalls being told during the procedure that his heart rate was high. Since then, he has felt fatigued which she attributed to the procedure. He had several days of bloody urinary output from his catheter and some pain with urination after was removed, otherwise had been recovering well but could not treat fatigue. For the past 2 to 3 days, he is felt very winded doing minimal activity and has noticed at times that his heart races. She denies any lightheadedness, dizziness, chest pain, or syncopal events. No recent fever/chills. He has been taking all his medications as prescribed, no missed doses of Eliquis aside from when it was held for his procedure earlier this month. He presented to the ED with an HR 116, found to be in A. fib, vitals otherwise within normal limits. Labs significant for Hgb 13.7, which is his baseline, sodium 133, glucose 182. CR 1.33, GFR 49.8, but patient's baseline. Troponin 14.5. Magnesium 1.7, potassium 4.0. Dig levels pending. He is COVID-negative. CXR shows chronic interstitial thickening and fibrotic changes, however no acute process. Patient received full dose aspirin 324 mg, started on IV fluids, as well as a diltiazem drip. Allergies Allergy/AdvReac Type Severity Reaction Status Date / Time simvastatin Allergy Intermediate RASH, Verified 08/26/21 14:31 ITCHING Penicillins Allergy Unknown DOESN'T Verified 08/26/21 14:31 KNOW tadalafil AdvReac Intermediate RUNNY Verified 08/26/21 14:31 NOSE, ACHINESS atorvastatin AdvReac Mild MUSCLE Verified 08/26/21 14:31 ACHES Home Medications Medication Instructions Recorded Confirmed Type aspirin 81 mg tablet,delayed 81 mg PO DAILY 10/14/18 08/26/21 History release cholecalciferol (vitamin D3) 50 2,000 units PO DAILY 10/14/18 08/26/21 History mcg (2,000 unit) tablet lancets 33 gauge (OneTouch Delica #100 ea 10/14/18 08/26/21 Rx Lancets) magnesium oxide 400 mg (241.3 mg 400 mg PO DAILY 10/14/18 08/26/21 History magnesium) tablet omega-3 acid ethyl esters 1 gram 2 cap PO DAILY 10/14/18 08/26/21 History capsule dulaglutide 0.75 mg/0.5 mL 0.75 mg (0.5 mL) subcut .COMPLEX 11/25/20 08/11/21 Rx subcutaneous pen injector #2 mL [facility] metformin 500 mg tablet 1,000 mg PO .COMPLEX #270 tabs 01/31/21 08/26/21 Rx metoprolol succinate 200 mg See Rx Instructions .Route 03/05/21 08/26/21 Rx tablet,extended release 24 hr .COMPLEX #30 tabs apixaban 5 mg tablet 5 mg PO BID #180 tabs 05/15/21 08/26/21 Rx digoxin 125 mcg (0.125 mg) tablet 125 mcg PO DAILY #90 tabs 05/15/21 08/26/21 Rx glipizide 10 mg tablet 10 mg PO BID #180 tabs 05/15/21 08/26/21 Rx omeprazole 20 mg capsule,delayed 20 mg PO DAILY #90 caps 05/15/21 08/26/21 Rx release rosuvastatin 5 mg tablet 5 mg PO .COMPLEX #15 tabs 05/15/21 08/26/21 Rx verapamil 180 mg tablet,extended 180 mg PO DAILY #90 tabs 05/15/21 08/26/21 Rx release tramadol 50 mg tablet 50 mg PO BID cough #40 tabs 07/14/21 08/26/21 Rx blood sugar diagnostic #100 ea 07/31/21 08/26/21 Rx levothyroxine 112 mcg tablet See Rx Instructions .Route 11/03/21 Rx .COMPLEX #90 tabs Past Med/Surg History Medical History (Updated 11/23/21 @ 11:13 by Ann Olivares PA-C) Acid reflux disease Anticoagulant long-term use Arteriosclerotic cardiovascular disease Biceps muscle tear Biceps tendon rupture Bladder cancer 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, uncontrolled Dyslipidemia Erythema migrans (Lyme disease) Gastritis History of squamous cell carcinoma of skin Hypothyroidism Onychomycosis Permanent atrial fibrillation Thrombocytopenia Tubular adenoma of colon (11/10/13) Vitamin D deficiency Surgical History (Updated 11/23/21 @ 11:13 by Ann Olivares PA-C) History of AAA (abdominal aortic aneurysm) repair History of colonoscopy with polypectomy (11/10/13) tubular adenoma History of inguinal hernia repair History of permanent cardiac pacemaker placement History of sinus surgery Hx of tonsillectomy S/P cataract surgery right - 12/16/16 left 12/30/16 Family History Father Aortic aneurysm Brother Coronary heart disease Sudden cardiac arrest Sister History of colon cancer Denies family history of Ovarian cancer Prostate cancer Diabetes Depression Myocardial infarction Breast cancer Lung cancer Colorectal cancer Social History Smoking Status: Former smoker Age Started Using Tobacco: 16; Age Quit Using Tobacco: 25; Second Hand Exposure: Yes; Hx Alcohol Use: No Hx Substance Use: No Preferred Language: Tamazight Visual Impairment: No Limitations Hearing Ability: Hard of Hearing Brim Curler Required: No marital status: Current Living Situation: Spouse current occupational status: retired Feels Safe at Home: Yes Childhood Exposure to Second-Hand Smoke: No caffeine: Yes Dental Care, Regularly: No Physical Activity Frequency: Daily Seatbelt Use: always Sunscreen Use: No Assistive Devices: Glasses Review of Systems Review of Systems: Constitutional: reports fatigue and weakness; No fever/chills, myalgias, anorexia, night sweats Eyes: No diplopia, no worsening or blurred vision ENT: normal hearing, no trouble swallowing Respiratory: NUNEZ; no cough, sputum, or SOB at rest Cardiovascular: palpitations without chest pain, tightness Abdomen: No pain, nausea, vomiting, diarrhea or constipation : Denies dysuria, hematuria, increased urgency/frequency, urinary retention Musculoskeletal: No joint pain, calf pain, swelling Neurologic: No weakness, numbness/tingling, or balance problems Psychiatric: No anxiety or depression Skin: No rash or itch Physical Exam Physical Exam: General: awake, alert, no apparent distress, breathing comfortable on RA Head: Normocephalic, atraumatic ENT: PERRL, EOMI, no pharyngeal exudate, mucous membranes moist Chest: Clear to auscultation, on room air, no adventitious breath sounds Cardiac: irregular rate and rhythm consistent with a fib; no murmur, no JVD, normal peripheral pulses, good capillary refill Abdominal: NABS x 4 quadrants, soft, nontender to palpation, no rebound, guarding or tenderness Extremities: Normal inspection, no peripheral edema or erythema, calfs nontender to palpation Psych: Normal mood and affect Neuro: AAO x 3, strength intact bilaterally and rated 5/5, no motor deficits, speech is clear, no peripheral sensory deficits Skin: no rash or erythema Results & Data Results & Data ([facility]) Vital Signs (Past 12 Hours) Vital Signs Temp Pulse Pulse Resp BP BP Pulse Ox 11/23/21 09:37 11/23/21 09:17 98 H 20 128/76 95 11/23/21 08:15 36.3 C L 116 H 24 128/76 94 O2 Del Method 11/23/21 09:37 Room Air 11/23/21 09:17 Room Air 11/23/21 08:15 Room Air Laboratory Results Abnormal lab results 11/23/21 11/23/21 11/23/21 Range/Units 08:32 08:32 08:32 RBC 4.45 L (4.63-6.08) M/uL Hgb 13.7 L (14.0-18.0) g/dl Hct 39.2 L (40.1-51.0) % PT 12.2 H (9.0-12.0) Seconds INR 1.2 H (0.9-1.1) Sodium 133 L (136-145) mmol/L Chloride 95 L (98-107) mmol/L Glucose 182 H (70-99(Fasting)) mg/dl Digoxin (0.8-2.0) ng/ml 11/23/21 Range/Units 09:24 RBC (4.63-6.08) M/uL Hgb (14.0-18.0) g/dl Hct (40.1-51.0) % PT (9.0-12.0) Seconds INR (0.9-1.1) Sodium (136-145) mmol/L Chloride (98-107) mmol/L Glucose (70-99(Fasting)) mg/dl Digoxin 0.5 L (0.8-2.0) ng/ml Diagnostic Findings Chest X-Ray 11/23/21 08:42 XR chest 1V portable HISTORY: Shortness of breath. Atypical Chest Pain COMPARISON: Chest 11/26/2020. FINDINGS: No pneumothorax. No pleural effusions. The cardiac silhouette remains borderline enlarged. The left-sided dual-chamber pacemaker. No change in the interstitial thickening/fibrotic change and low lung volumes. No evidence for pulmonary edema. No new focal lung consolidations to suggest pneumonia. IMPRESSION: Chronic interstitial thickening/fibrotic change persists. Otherwise, no acute process within the chest. ACT 112: Negative or not required by law. Electronically signed by: Anand Estrada M.D. 11/23/2021 9:01 AM ECG Additional Comments: Undetermined rhythm ST & T wave abnormality, consider anterolateral ischemia Abnormal ECG When compared with ECG of 23-NOV-2021 08:22, (unconfirmed) Current undetermined rhythm precludes rhythm comparison, needs review. Code Status & VTE Plan Code Status DNR/DNI. Supervising Physician Co-Signing Physician Notes Patient seen and examined, chart reviewed, case discussed with Ann Olivares PA-C and I agree with the assessment and plan as above except as otherwise noted Labs and images reviewed Cheng is an 81-year-old male with a past medical history of atrial fibrillation on anticoagulation, poorly controlled diabetes mellitus type 2 with CKD, hypothyroidism, nonsustained V. tach, interstitial lung disease, bladder malignancy, aneurysm of infrarenal abdominal aorta, and pacemaker who presented to the ER with palpitations and he was found to be in atrial fibrillation with RVR. He was placed on a Cardizem drip with improvement of rates and has been referred for admission for further care and pacer interrogation. Stopped blood thinner for Urology TURP, then subsequently resumed apixaban after. [facility], following serially with scans for now. Dr. Smith Patient reports he has permanent A. fib, normally well controlled. Takes digoxin, metoprolol, verapamil and has not missed medication doses. Not having chest pain, chest pressure, shortness of breath. Does have palpitations. Remote tobacco use history. Patient does have interstitial lung disease, suspected from occupational exposure and biopsy and additional treatment has been deferred at this time on follow-up with pulmonology. He feels his breathing is at its normal baseline and resting, but is much more easily winded and fatigued with exertion in the last week. No orthopnea. At bedside evaluation patient is awake, alert, no acute distress. Heart rate is tachycardic and irregular. Lungs are clear to auscultation with good air movement, no rales are appreciated. He is moving all extremities equally. No lightheadedness/dizziness at bedside assessment. Permanent atrial fibrillation with RVR, on apixaban Patient anticoagulated on apixaban 5 mg p.o. twice daily Placed on Cardizem drip in ER with some rate improvement, patient with prior EF of approximately 50% follow-up stress test with EF 55-59% and no inducible ST segment changes Admitting EKG: Afib. ? 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 fib burden. Per patient he believes his A. fib is permanent and not paroxysmal Patient with a history of hypothyroid, last TSH check 6 months ago, repeat pending COVID-negative CXR: Chronic interstitial thickening/fibrotic change similar to prior. No acute process No leukocytosis, hemoglobin 13.7, sodium 133, potassium 4.0, magnesium 1.7 on admission High-sensitivity troponin normal on admission Stress echo 07/22/2021: Baseline ST segment abnormalities with depressions in [id number], no diagnostic ST changes at peak stress and max heart rate. EF 55-59%. No pulmonary hypertension. Pacemaker in place 2/2 history of sinus pauses greater than 4 seconds, asymptomatic at that time Follows with Dr. Sanjay Carlos, interrogation pending as noted Due for replacement in 1-2 years. To patient's knowledge has been functioning properly Type 2 diabetes mellitus Hold home metformin Hold home glipizide Hold home dulaglutide Converted to weight-based SSI/Lantus, Lantus dose reduced while on clears/NPO A1c pending CKD 2/2 DM Baseline creatinine 1.251.4, 1.33 on admission Renally dose medications where appropriate, drug dosing clearance 46 EGFR approximately 50 BMP daily No CHRIS on admission CAD Continue beta-blanca, CCB as noted Continue aspirin 81 mg daily Continue rosuvastatin 5 mg daily Interstitial lung disease 08/29/2021 PFT: FVC 2.64 (72% predicted), FEV1 2.14 (83% predicted), FEV1/FVC 113% predicted. No bronchodilator response tested. 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 Poor surgical candidate given advanced age. Unclear etiology with progressive fibrosis Pirfenidone/nintedanib discussed at last visit, patient would like to hold off but will have outpatient follow-up after his urology and vascular appointments Is pending repeat PFTs in 6 months. Has declined tertiary center referral for now. Empiric trial of prednisone deferred Hx TURBT for Bladder Mass 11/05 [facility] at right [facility] required thomas for 2 days and then hematuria resolved. No problems since - Outpt f/u with [facility] Urology, path pending with [facility] 6 cm abdominal aortic aneurysm S/p repair, follows as outpatient with [facility] vascular surgery. 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
--- NOTE | 2021-11-23 10:15 | History & Physical Report ---
Date of Service November 23, 2021 History of Present Illness Primary Care Provider: Shlomo Adam DO Anand is an 81-year-old male with a past medical history of atrial fibrillation on anticoagulation, poorly controlled diabetes mellitus type 2 with CKD, hypot hyroidism, nonsustained V. tach, interstitial lung disease, bladder malignancy, aneurysm of infrarenal abdominal aorta, and pacemaker who presented to the ER with palpitations and he was found to be in atrial fibrillation with RVR. He was placed on a Cardizem drip with improvement of rates and has been referred for admission for further care and pacer interrogation. Pacer placed for yuan/sinus pauses >4sec almost 10 years ago, 1.5 years due for replacement Stopped blood thinner for Urology TURP [facility]: NExt month, following serially with scans for now. Dr. Smith Atrial fibrillation with RVR Patient anticoagulated on apixaban 5 mg p.o. 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 No acute process No leukocytosis, hemoglobin 13.7, sodium 133, potassium 4.0, magnesium 1.7 on admission High-sensitivity troponin normal on admission - Pending pacer admit Type 2 diabetes mellitus Hold home metformin Hold home glipizide Hold home dulaglutide CKD 2/2 DM BSG 182 on admission A1c pending CA Continue beta-blanca, CCB as above Continue aspirin 81 mg daily Continue rosuvastatin 5 mg daily Interstitial lung disease 08/29/2021 PFT: FVC 2.64 (72% predicted), FEV1 2.14 (83% predicted), FEV1/FVC 113% predicted. No bronchodilator response tested. 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 Poor surgical candidate given advanced age. Unclear etiology with progressive fibrosis Pirfenidone/imatinib discussed at last visit, patient would like to hold off pending vascular and urologic procedures per current considering these Is pending repeat PFTs in 6 months. Has declined tertiary center referral for now. Empiric trial of prednisone deferred at that time History of TURP 10/21/2021: Preop for TURP for bladder mass at right wall with several months of pink urine 6 cm abdominal aortic aneurysm Following with vascular surgery Remote smoking history as a teenager Allergies Allergy/AdvReac Type Severity Reaction Status Date / Time simvastatin Allergy Intermediate RASH, Verified 08/26/21 14:31 ITCHING Penicillins Allergy Unknown DOESN'T Verified 08/26/21 14:31 KNOW tadalafil AdvReac Intermediate RUNNY Verified 08/26/21 14:31 NOSE, ACHINESS atorvastatin AdvReac Mild MUSCLE Verified 08/26/21 14:31 ACHES Home Medications Medication Instructions Recorded Confirmed Type aspirin 81 mg tablet,delayed 81 mg PO DAILY 10/14/18 08/26/21 History release cholecalciferol (vitamin D3) 50 2,000 units PO DAILY 10/14/18 08/26/21 History mcg (2,000 unit) tablet lancets 33 gauge (TaskEasyTouch Delica #100 ea 10/14/18 08/26/21 Rx Lancets) magnesium oxide 400 mg (241.3 mg 400 mg PO DAILY 10/14/18 08/26/21 History magnesium) tablet omega-3 acid ethyl esters 1 gram 2 cap PO DAILY 10/14/18 08/26/21 History capsule dulaglutide 0.75 mg/0.5 mL 0.75 mg (0.5 mL) subcut .COMPLEX 11/25/20 08/11/21 Rx subcutaneous pen injector #2 mL ([facility]) metformin 500 mg tablet 1,000 mg PO .COMPLEX #270 tabs 01/31/21 08/26/21 Rx metoprolol succinate 200 mg See Rx Instructions .Route 03/05/21 08/26/21 Rx tablet,extended release 24 hr .COMPLEX #30 tabs apixaban 5 mg tablet 5 mg PO BID #180 tabs 05/15/21 08/26/21 Rx digoxin 125 mcg (0.125 mg) tablet 125 mcg PO DAILY #90 tabs 05/15/21 08/26/21 Rx glipizide 10 mg tablet 10 mg PO BID #180 tabs 05/15/21 08/26/21 Rx omeprazole 20 mg capsule,delayed 20 mg PO DAILY #90 caps 05/15/21 08/26/21 Rx release rosuvastatin 5 mg tablet 5 mg PO .COMPLEX #15 tabs 05/15/21 08/26/21 Rx verapamil 180 mg tablet,extended 180 mg PO DAILY #90 tabs 05/15/21 08/26/21 Rx release tramadol 50 mg tablet 50 mg PO BID cough #40 tabs 07/14/21 08/26/21 Rx blood sugar diagnostic #100 ea 07/31/21 08/26/21 Rx levothyroxine 112 mcg tablet See Rx Instructions .Route 11/03/21 Rx .COMPLEX #90 tabs Past Med/Surg History Medical History Acid reflux disease Anticoagulant long-term use Arteriosclerotic cardiovascular disease Biceps muscle tear Biceps tendon rupture 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, uncontrolled Dyslipidemia Erythema migrans (Lyme disease) Gastritis History of squamous cell carcinoma of skin Hypothyroidism Onychomycosis Permanent atrial fibrillation Thrombocytopenia Tubular adenoma of colon (11/10/13) Vitamin D deficiency Surgical History History of colonoscopy with polypectomy (11/10/13) tubular adenoma History of inguinal hernia repair History of permanent cardiac pacemaker placement History of sinus surgery Hx of tonsillectomy S/P cataract surgery right - 12/16/16 left 12/30/16 Family History Father Aortic aneurysm Brother Coronary heart disease Sudden cardiac arrest Sister History of colon cancer Denies family history of Ovarian cancer Prostate cancer Diabetes Depression Myocardial infarction Breast cancer Lung cancer Colorectal cancer Social History Smoking Status: Former smoker Age Started Using Tobacco: 16; Age Quit Using Tobacco: 25; Second Hand Exposure: Yes; Hx Alcohol Use: No Hx Substance Use: No Preferred Language: Setswana Visual Impairment: No Limitations Hearing Ability: Hard of Hearing 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 Lab 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 Required: No marital status: Current Living Situation: Spouse current occupational status: retired Feels Safe at Home: Yes Childhood Exposure to Second-Hand Smoke: No caffeine: Yes Dental Care, Regularly: No Physical Activity Frequency: Daily Seatbelt Use: always Sunscreen Use: No Assistive Devices: Glasses Results & Data Results & Data ([facility]) Vital Signs (Past 12 Hours) Vital Signs Temp Pulse Pulse Resp BP BP Pulse Ox 11/23/21 09:37 11/23/21 09:17 98 H 20 128/76 95 11/23/21 08:15 36.3 C L 116 H 24 128/76 94 O2 Del Method 11/23/21 09:37 Room Air 11/23/21 09:17 Room Air 11/23/21 08:15 Room Air PG Care Time/CCT Total # of Minutes Spent Total Time Spent with Patient: Total time spent is greater than 50% in coordination of care (as documented) at patient's floor/unit and/or counseling patient: Coding
[2021-11-23] MEDS ORDERED: GLUCOSE 10 TAB/TUBE PO PRN (11:41)
[2021-11-23] MEDS ORDERED: GLUCAGON FOR INJ 1 MG VIAL SQ PRN (11:41)
[2021-11-23] MEDS ORDERED: GLUCOSE 40% GEL 15 GM TUBE PO PRN (11:41)
[2021-11-23] MEDS ORDERED: ACETAMINOPHEN 325 MG TAB PO PRN (11:41)
[2021-11-23] MEDS ORDERED: DEXTROSE 50% 50 ML SYRINGE IV PRN (11:41)
[2021-11-23] MEDS ORDERED: ONDANSETRON INJ 2 MG/ML 2 ML VIAL IV PRN (11:41)
[2021-11-23] MEDS ORDERED: CARBOHYDRATES FOR HYPOGLYCEMIA PO PRN (11:41)
[2021-11-23] MEDS ORDERED: DIGOXIN 125 MCG in SYRINGE 9.5 ML IV ONE (11:45)
[2021-11-23] MEDS: INSULIN ASPART PER UNIT SC SCH ×3 (12:18→20:12)
[2021-11-23] MEDS: MAGNESIUM SULFATE / D5W 1 GM/100 ML BAG IV SCH ×2 (12:18→14:02)
[2021-11-23] MEDS: ROSUVASTATIN CALCIUM 5 MG TAB PO SCH (12:29)
[2021-11-23] MEDS: APIXABAN 5 MG TABLET PO SCH (20:09)
[2021-11-23] MEDS: LANTUS PER UNIT CHARGE SQ SCH (20:13)
--- NOTE | 2021-11-23 21:24 | Electrocardiogram Report ---
Test Reason : Blood Pressure : / mmHG Vent. Rate : 139 BPM Atrial Rate : 129 BPM P-R Int : 000 ms QRS Dur : 088 ms QT Int : 312 ms P-R-T Axes : 000 -31 153 degrees QTc Int : 474 ms Atrial fibrillation with rapid ventricular response Left axis deviation Abnormal ECG When compared with ECG of 26-DEC-2014 14:32, Ventricular pacing is no longer present T wave inversion now evident in Lateral leads Vent. rate has increased BY 49 BPM Confirmed by Salvador Murphy ([id number]) on 11/23/2021 9:24:33 PM Referred By: REFERRED SELF Confirmed By:Salvador Murphy
--- NOTE | 2021-11-23 21:27 | Electrocardiogram Report ---
Test Reason : Blood Pressure : / mmHG Vent. Rate : 104 BPM Atrial Rate : 105 BPM P-R Int : 000 ms QRS Dur : 102 ms QT Int : 348 ms P-R-T Axes : 000 -24 167 degrees QTc Int : 457 ms Atrial fibrillation with rapid ventricular response with premature ventricular or aberrantly conducte d complexes and with occasional ventricular-paced complexes Abnormal ECG When compared with ECG of 23-NOV-2021 08:22, Ventricular paced complexes are now present Confirmed by Salvador Murphy ([id number]) on 11/23/2021 9:27:16 PM Referred By: REFERRED SELF Confirmed By:Salvador Murphy
[2021-11-24] MEDS: SODIUM CHLORIDE 0.9% 1000ML 1,000 ML IV SCH ×2 (00:39→09:18)
[2021-11-24 03:33] LABS: BUN Creatinine Ratio 8.5 (10-20); Calcium 8.7 mg/dl (8.5-10.1); Creatinine Clr Calc Pharmacy 57.7 ml/min; Est GFR (African American) 75.9 ml/min; Est GFR (Non-African American) 65.5 ml/min; Magnesium 1.9 mg/dl (1.7-2.4)
[2021-11-24 03:42] LABS: Basophils # (auto) 0.03 K/uL (0-0.2); Basophils % (auto) 0.4 %; Eosinophils # (auto) 0.17 K/uL (0-0.50); Eosinophils % (auto) 2.5 %; Hemoglobin 12.5 g/dl (14.0-18.0); Immature Granulocytes # (auto) 0.01 K/uL (0.00-0.02); Immature Granulocytes % (auto) 0.1 %; Lymphocytes # (auto) 1.56 K/uL (1.2-3.4); Lymphocytes % (auto) 22.7 %; Mean Corpuscular Hemoglobin 30.9 pg (25.0-34.0); Mean Corpuscular Hgb Conc 34.7 g/dL (32.0-36.0); Mean Corpuscular Volume 89.1 fL (80.0-100.0); Mean Platelet Volume 9.8 fL (9.4-12.4); Monocytes # (auto) 0.69 K/uL (0.24-0.82); Neutrophils # (auto) 4.41 K/uL (1.4-6.5); Neutrophils % (auto) 64.3 %; Platelet Count 147 K/uL (130-400); Platelet Estimate Normal (Normal); RDW Standard Deviation 39.6 fL (36.4-46.3); Red Blood Count 4.04 M/uL (4.63-6.08); White Blood Count 6.87 K/ul (4.8-10.8)
[2021-11-24] MEDS ORDERED: LEVOTHYROXINE SODIUM 112 MCG TABLET PO SCH (06:30)
[2021-11-24 06:54] LABS: Estimated Average Glucose 148 mg/dl; Hemoglobin A1C 6.8 % (4.5-5.6)
[2021-11-24] MEDS: APIXABAN 5 MG TABLET PO SCH (07:38)
[2021-11-24] MEDS: ROSUVASTATIN CALCIUM 5 MG TAB PO SCH (07:39)
--- NOTE | 2021-11-24 08:51 | Cardiology Consultation ---
Date of Consultation November 24, 2021 Assessment & Plan (1) Atrial fibrillation with rapid ventricular response: (2) Pacemaker: (3) Anticoagulant long-term use: (4) Arteriosclerotic cardiovascular disease: Plan 1. Atrial fibrillation: Although he is in permanent atrial fibrillation he presented with a rapid heart rate and required intravenous diltiazem. His heart rate documented by the pacemaker appeared well controlled until around the last month at which time it began to increase. He does not believe he has had any permanent changes medications in that time. His heart rate is now well controlled off of intravenous diltiazem, having been given his outpatient oral medications this morning. I suspect noncompliance, possibly he was not sent home after his surgery on the proper medications rather than him not taking them. I would continue his current regimen which has been stable for some time (metoprolol, verapamil and digoxin) and emphasized that he should check these medications at home and make sure he is taking them correctly. 2. Pacemaker: Pacemaker evaluation shows appropriate pacing sensing characteristics, as noted his heart rate has trended up over the last month for unclear reasons and that is evident on pacemaker monitoring. 3. Anticoagulation: He is anticoagulated with Eliquis on a chronic basis. I would recommend continuing this. 4. Coronary disease: Although we have suspected that he has coronary disease we have not proven it and his troponins are normal despite his rapid heart rate suggesting this is not a clinical issue. History of Present Illness Reason for Consultation: Atrial fibrillation with rapid ventricular response Attending Physician: Jay Jay Julian MD History of Present Illness This is an 81-year-old man with a history of diabetes mellitus, hypertension, and brief episodes of paroxysmal atrial fibrillation. He also has sick sinus syndrome and had a dual chamber pacemaker which was implanted on January 13, 2006. That device reached [facility] and required replacement which was performed on 04/03/2014. During that procedure he was in atrial fibrillation throughout, however he was only observed for several hours during and after the procedure. We had him come back in the next day and he was in sinus rhythm therefore we did not add anticoagulation. He did however observe that his heart rate was rapid subsequently, we had him go to the emergency room where he was observed to be in atrial fibrillation. He was therefore started on Eliquis 5 mg twice a day. More recently he has remained in what now appears to be permanent atrial fibrillation, with rate control this appears to be asymptomatic. He also has presumed coronary artery disease based on exertional chest and back discomfort and a mildly abnormal stress echo in May of 2011. He continues to have occasional episodes of this discomfort which may be anginal, however it is infrequent, brief and does seem anginal. He is being treated with risk factor modification for presumed coronary disease. He did develop Lyme disease in 2018 which was treated but he was quite ill with it. He had an echocardiogram done August 12, 2018, this showed normal left ventricular size with mild left ventricular hypertrophy and ejection fraction of 55 to 60%. He had a 5.6 cm abdominal aortic aneurysm found on CT scanning in June 2021. As part of his preoperative evaluation he had a dobutamine stress echo done on July 22, 2021 at [facility] which was felt to be negative for ischemia and his left ventricular ejection fraction was 55 to 59%. On August 28, 2021 he had repair of this aneurysm using a stent graft, he also had bilateral iliac extensions. He presented to the emergency room on November 23, 2021 with an elevated heart rate which on electrocardiography November 23, 2021 at 0822 appears to be atrial fibrillation with a heart rate of 139 bpm. He was treated with intravenous d iltiazem and additional digoxin was given (level in the emergency room was 0.5) and a repeat electrocardiogram 20 minutes later shows atrial fibrillation with a heart rate of 104 bpm with what appear to be premature ventricular beats. His outpatient regimen consists of digoxin 0.125 mg daily, metoprolol succinate 200 mg daily and verapamil 180 mg daily. At the time of my initial evaluation this morning he was feeling well, he was still on diltiazem and his heart rate was controlled. He had no further palpitations and no other cardiovascular symptoms. I discussed medications with him and he appeared to be compliant, although he does not know his medications well. He references a list that he was given as to what he is taking. On repeat evaluation this afternoon at around 130 he was off of diltiazem and his heart rate was well controlled, predominantly pacing with him sitting at a bedside chair. I reviewed medications with him again with the same result. He is however feeling well currently. Allergies Allergy/AdvReac Type Severity Reaction Status Date / Time simvastatin Allergy Intermediate RASH, Verified 08/26/21 14:31 ITCHING Penicillins Allergy Unknown DOESN'T Verified 08/26/21 14:31 KNOW tadalafil AdvReac Intermediate RUNNY Verified 08/26/21 14:31 NOSE, ACHINESS atorvastatin AdvReac Mild MUSCLE Verified 08/26/21 14:31 ACHES Home Medications Medication Instructions Recorded Confirmed Type aspirin 81 mg tablet,delayed 81 mg PO DAILY 10/14/18 11/23/21 History release cholecalciferol (vitamin D3) 50 2,000 units PO DAILY 10/14/18 11/23/21 History mcg (2,000 unit) tablet lancets 33 gauge (OneTouch Delica #100 ea 10/14/18 08/26/21 Rx Lancets) magnesium oxide 400 mg (241.3 mg 400 mg PO DAILY 10/14/18 11/23/21 History magnesium) tablet omega-3 acid ethyl esters 1 gram 2 cap PO DAILY 10/14/18 11/23/21 History capsule dulaglutide 0.75 mg/0.5 mL 0.75 mg (0.5 mL) subcut .COMPLEX 11/25/20 11/23/21 Rx subcutaneous pen injector #2 mL ([facility]) metformin 500 mg tablet 1,000 mg PO .COMPLEX #270 tabs 01/31/21 11/23/21 Rx metoprolol succinate 200 mg See Rx Instructions .Route 03/05/21 11/23/21 Rx tablet,extended release 24 hr .COMPLEX #30 tabs apixaban 5 mg tablet 5 mg PO BID #180 tabs 05/15/21 11/23/21 Rx digoxin 125 mcg (0.125 mg) tablet 125 mcg PO DAILY #90 tabs 05/15/21 11/23/21 Rx glipizide 10 mg tablet 10 mg PO BID #180 tabs 05/15/21 11/23/21 Rx omeprazole 20 mg capsule,delayed 20 mg PO DAILY #90 caps 05/15/21 11/23/21 Rx release rosuvastatin 5 mg tablet 5 mg PO .COMPLEX #15 tabs 05/15/21 11/23/21 Rx verapamil 180 mg tablet,extended 180 mg PO DAILY #90 tabs 05/15/21 11/23/21 Rx release tramadol 50 mg tablet 50 mg PO BID cough #40 tabs 07/14/21 11/23/21 Rx blood sugar diagnostic #100 ea 07/31/21 08/26/21 Rx levothyroxine 112 mcg tablet See Rx Instructions .Route 11/03/21 11/23/21 Rx .COMPLEX #90 tabs Patient History Medical History (Updated 11/23/21 @ 13:40 by Roosevelt Rodriguez) Acid reflux disease Anticoagulant long-term use Arteriosclerotic cardiovascular disease Biceps muscle tear Biceps tendon rupture Bladder cancer 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, uncontrolled Dyslipidemia Erythema migrans (Lyme disease) Gastritis History of squamous cell carcinoma of skin Hypothyroidism Onychomycosis Permanent atrial fibrillation Thrombocytopenia Tubular adenoma of colon (11/10/13) Vitamin D deficiency Surgical History (Updated 11/23/21 @ 11:13 by Ann Olivares PA-C) History of AAA (abdominal aortic aneurysm) repair History of colonoscopy with polypectomy (11/10/13) tubular adenoma History of inguinal hernia repair History of permanent cardiac pacemaker placement History of sinus surgery Hx of tonsillectomy S/P cataract surgery right - 12/16/16 left 12/30/16 Family History Father Aortic aneurysm Brother Coronary heart disease Sudden cardiac arrest Sister History of colon cancer Denies family history of Ovarian cancer Prostate cancer Diabetes Depression Myocardial infarction Breast cancer Lung cancer Colorectal cancer Social History Smoking Status: Former smoker Age Started Using Tobacco: 16; Age Quit Using Tobacco: 25; Second Hand Exposure: No; Do You Dip or Chew Tobacco: No; Tobacco Cessation Education Requested by Patient: No Hx Alcohol Use: No Hx Substance Use: No Preferred Language: Filipino Communication Ability: Effective Visual Impairment: No Limitations Hearing Ability: Hard of Hearing Horticultural Nursery Assistant Required: No Beliefs That Will Affect Care: None marital status: Current Living Situation: Spouse current occupational status: retired Other Information That Helps Us Care for You: No Feels Safe at Home: Yes Safety Concerns: Feels Safe At This Time Childhood Exposure to Second-Hand Smoke: No caffeine: Yes Dental Care, Regularly: No Physical Activity Frequency: Daily Seatbelt Use: always Sunscreen Use: No Assistive Devices: None Physical Exam Physical Exam: Constitutional: Alert, cooperative and in no distress. HEENT: Unremarkable Neck: No jugular venous distention, carotid pulses are normal and equal bilaterally without bruits. Pulmonary: Clear to auscultation bilaterally. Cardiac: Irregular rhythm with no murmur, gallop or rub. Abdomen: Soft, nontender with normal bowel sounds. Extremities: No edema. Distal pulses intact. Neurologic: No focal findings. Gait is steady. Skin: The device site is well-healed without erythema, swelling or tenderness. No rash, ecchymoses or petechiae. Results & Data ([facility]) Vital Signs (Past 12 Hours) Vital Signs Temp Pulse Resp BP Pulse Ox 11/24/21 07:40 107 H 11/24/21 06:00 108 H 18 149/105 H 89 L 11/24/21 05:02 124 H 21 142/107 H 94 11/24/21 05:02 142/107 H 11/24/21 00:00 36.9 C 11/24/21 05:04 36.9 C 11/24/21 04:00 99 H 18 134/91 89 L 11/24/21 03:00 110 H 18 151/78 H 89 L 11/24/21 02:00 99 H 14 139/75 11/24/21 01:29 115 H 19 146/85 H 94 11/24/21 01:27 96 H 22 133/105 H 11/24/21 01:00 36.9 C 87 19 94 11/24/21 00:00 97 H 21 94 11/23/21 23:00 119 H 17 93 11/23/21 22:00 91 H 18 94 11/23/21 21:00 83 16 96 11/24/21 00:00 103 H Laboratory Results Cardiac Enzymes 11/23/21 11/23/21 11/23/21 Range/Units 08:32 11:53 19:43 Troponin I High Sens 14.5 12.1 14.4 (0-20) pg/ml 11/24/21 Range/Units 02:36 Troponin I High Sens 15.2 (0-20) pg/ml Coagulation 11/23/21 Range/Units 08:32 PT 12.2 H (9.0-12.0) Seconds APTT 28.8 (21.0-31.0) Seconds CBC 11/23/21 11/24/21 Range/Units 08:32 02:36 WBC 7.63 6.87 (4.8-10.8) K/ul RBC 4.45 L 4.04 L (4.63-6.08) M/uL Hgb 13.7 L 12.5 L (14.0-18.0) g/dl Hct 39.2 L 36.0 L (40.1-51.0) % Plt Count 156 147 (130-400) K/uL Neut # (Auto) 4.56 4.41 (1.4-6.5) K/uL Lymph # (Auto) 2.16 1.56 (1.2-3.4) K/uL Benson # (Auto) 0.69 0.69 (0.24-0.82) K/uL Eos # (Auto) 0.17 0.17 (0-0.50) K/uL Baso # (Auto) 0.03 0.03 (0-0.2) K/uL Comprehensive Metabolic Panel 11/23/21 11/24/21 Range/Units 08:32 02:36 Sodium 133 L 132 L (136-145) mmol/L Potassium 4.0 4.0 (3.5-5.1) mmol/L Chloride 95 L 99 (98-107) mmol/L Carbon Dioxide 27 26 (21-32) mmol/L BUN 15 9 (6-23) mg/dl Creatinine 1.33 1.06 (0.6-1.4) mg/dl Glucose 182 H 128 H (70-99(Fasting)) mg/dl Calcium 9.4 8.7 (8.5-10.1) mg/dl Intake and Output 11/23/21 11/24/21 11/24/21 22:59 06:59 14:59 Intake Total 377.083 / 3038.666 1502.583 / 3038.666 138 / 138 Output Total 300 / 1600 600 / 1600 Balance 77.083 / 1438.666 902.583 / 1438.666 138 / 138 Intake: IV 377.083 / 2238.666 1002.583 / 2238.666 38 / 38 Magnesium Sulfate / D5w 1 gm In 100 / 186.667 100 ml @ 50 mls/hr IV Q2H [facility] Rx#:[id number] Sodium Chloride 0.9% 1000ML 1, 277.083 / 1958.333 958.333 / 1958.333 000 ml @ 125 mls/hr IV .Q8H [facility] Rx#:[id number] dilTIAZem HCL 125 mg In 44.25 / 93.666 38 / 38 Dextrose 5% 100 ml @ 5 MG/HR 5 mls/hr IV .Q24H [facility] Rx#: [id number] Oral 100 / 100 Tube Feeding 500 / 500 Output: Urine 300 / 1600 600 / 1600 Other: Weight 84 kg Diagnostic Findings Telemetry: Initially rapid heart rate, rapid drop to a well-controlled heart rate after receiving oral medications this morning. No increase with discontinuation of the intravenous diltiazem this morning. PG Care Time/CCT Total # of Minutes Spent Total Time Spent with Patient: Total time spent is greater than 50% in coordination of care (as documented) at patient's floor/unit and/or counseling patient: Coding Level of Care Code 24990 Initial Inpt Care Lvl 3 Diagnoses Atrial fibrillation with rapid ventricular response I48.91 Pacemaker Z95.0 Anticoagulant long-term use Z79.01 Arteriosclerotic cardiovascular disease I25.10 CPT Codes Pacemaker Single Lead Programming - 01492 ([id number])
[2021-11-24] MEDS ORDERED: MAGNESIUM OXIDE 400 MG TAB PO SCH (09:00)
[2021-11-24] MEDS ORDERED: CHOLECALCIFEROL 1,000 UNITS 25 MCG TAB PO SCH (09:00)
[2021-11-24] MEDS ORDERED: DIGOXIN 0.125 MG TAB PO SCH (09:00)
[2021-11-24] MEDS ORDERED: PANTOprazole 40 MG TAB PO SCH (09:00)
[2021-11-24] MEDS ORDERED: METOPROLOL SUCC 50MG EXT REL TAB PO SCH (09:00)
[2021-11-24] MEDS ORDERED: ASPIRIN 81 MG ECTAB PO SCH (09:00)
[2021-11-24] MEDS ORDERED: VERAPAMIL HCL 180 MG TABCR PO SCH (09:00)
[2021-11-24] MEDS: INSULIN ASPART PER UNIT SC SCH ×2 (09:23→11:56)
[2021-11-24] MEDS: LANTUS PER UNIT CHARGE SQ SCH (10:16)
[2021-11-24] MEDS ORDERED: Nursing to Pharmacy Communication SCH (10:30)
--- NOTE | 2021-11-24 12:21 | Hospitalist Progress Note ---
Date of Service November 24, 2021 Assessment & Plan (1) Atrial fibrillation with RVR: Plan: Patient anticoagulated on apixaban 5 mg p.o. 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 -> Doing well today. HR down in the 60 - 80 bpm range. (2) Pacemaker: Plan: - 2/2 history of asymptomatic SSS - Due for replacement in 1-2 years. To patient's knowledge has been functioning properly. - Interrogation pending. (3) History of AAA (abdominal aortic aneurysm) repair: Plan: - Had a 5.6 cm AAA repaired at the end of August of this year at [facility], after incidentally being found during work-up for bladder tumor. - Did well postoperatively, discharged home on POD #1. - Follows with Dr. Juan Howard MD for this. (4) Bladder tumor: Plan: - s/p TURP at beginning of month, patient with a few days of hematuria and dysuria s/p procedure, has since resolved. - Has an appt this with urology in [facility] to discuss next steps. 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 - Hold home oral agents (metformin, glipizide, dulaglutide). - Insulin regimen based on weight, 8 units Lantus twice daily when on DM2 diet, for now 5 units Lantus BID while on clear liquid diet. - Accu-Cheks ACHS. (6) Acid reflux disease: Plan: - Continue PPI, convert home omeprazole to hospital formulary. (7) Dyslipidemia: Plan: - Continue statin. (8) Hypothyroidism: Plan: - Continue levothyroxine daily. (9) Vitamin D deficiency: Plan: - Continue vitamin D supplementation. (10) Interstitial lung disease: Plan: - Unclear etiology, follows with Dr. Abernathy and has had workup, he is not a candidate for lung biopsy. He is minimally symptomatic. No evidence of respiratory distress today. - Surveillance for now with Mucinex prn. Admission and Anticipated Discharge Date Admission Date: November 23, 2021 Subjective Doing well today, though tired because he did not sleep well with urinary issues, alarms, fluids, etc. Reports no fevers/chills, chest pain, shortness of breath, abdominal pain, nausea, or vomiting. Physical Exam Constitutional: WD/WN, vitals as above Eyes: EOM intact bilaterally; no conjunctival abnormality ENMT: external ear and nose normal, oropharynx normal Neck: trachea midline, no thyromegaly normal visual inspection Respiratory: normal respiratory effort, lungs clear to auscultation no respiratory distress Cardiovascular: Rate/Rhythm: regular rate and + irregularly irregular Extremities: no edema Gastrointestinal (Abdomen): Inspection/Auscultation: abdomen normal to inspection; abdomen not distended Musculoskeletal: no cyanosis or clubbing, extremities motor strength 5/5 Skin: no rashes, warm and dry Neurologic: moves all extremities and awake Psychiatric: Orientation: alert, oriented to person and cooperative Results & Data Results & Data ([facility]) Vital Signs (Past 12 Hours) Vital Signs Temp Pulse Resp BP Pulse Ox O2 Del Method 11/24/21 11:00 36.6 C 67 18 95 Room Air 11/24/21 11:00 140/80 11/24/21 10:01 76 18 95 11/24/21 10:01 133/60 11/24/21 10:00 68 18 94 11/24/21 09:00 78 15 91 11/24/21 09:00 136/87 11/24/21 08:00 36.6 C 112 H 23 93 Room Air 11/24/21 07:00 100 H 19 91 11/24/21 07:40 107 H 11/24/21 06:00 108 H 18 149/105 H 89 L 11/24/21 05:02 124 H 21 142/107 H 94 11/24/21 05:02 142/107 H 11/24/21 05:04 36.9 C 11/24/21 04:00 99 H 18 134/91 89 L 11/24/21 03:00 110 H 18 151/78 H 89 L 11/24/21 02:00 99 H 14 139/75 11/24/21 01:29 115 H 19 146/85 H 94 11/24/21 01:27 96 H 22 133/105 H 11/24/21 01:00 36.9 C 87 19 94 PG Care Time/CCT Total # of Minutes Spent Total Time Spent with Patient: Total time spent is greater than 50% in coordination of care (as documented) at patient's floor/unit and/or counseling patient: Coding Level of Care Code 80278 Subseq Hosp Care Lvl 2 Diagnoses Atrial fibrillation with RVR I48.91 Pacemaker Z95.0 History of AAA (abdominal aortic aneurysm) repair Z98.890 Bladder tumor D49.4 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
--- NOTE | 2021-11-24 16:06 | Discharge Summary ---
Date of Service November 24, 2021 Admission HPI Per Admitting Provider Cheng Stephenson is an 81-year-old male with past medical history significant for A. fib on Eliquis, AAA repair in August at [facility], interstitial lung disease, bladder cancer, DM2, CKD, GERD, hypertension, hyperlipidemia, pacemaker present d/t SSS who presents today with palpitations, shortness of breath, and general fatigue and weakness over the past 2-3 days. Patient recently had a TURBT earlier this month for bladder mass suspicious for malignancy, had been off Eliquis for 48-hour. At that time, he recalls being told during the procedure that his heart rate was high. Since then, he has felt fatigued which she attributed to the procedure. He had several days of bloody urinary output from his catheter and some pain with urination after was removed, otherwise had been recovering well but could not treat fatigue. For the past 2 to 3 days, he is felt very winded doing minimal activity and has noticed at times that his heart races. She denies any lightheadedness, dizziness, chest pain, or syncopal events. No recent fever/chills. He has been taking all his medications as prescribed, no missed doses of Eliquis aside from when it was held for his procedure earlier this month. He presented to the ED with an HR 116, found to be in A. fib, vitals otherwise within normal limits. Labs significant for Hgb 13.7, which is his baseline, sodium 133, glucose 182. CR 1.33, GFR 49.8, but patient's baseline. Troponin 14.5. Magnesium 1.7, potassium 4.0. Dig levels pending. He is COVID-negative. CXR shows chronic interstitial thickening and fibrotic changes, however no acute process. Patient received full dose aspirin 324 mg, started on IV fluids, as well as a diltiazem drip. Principal Diagnosis Atrial fibrillation with rapid response Discharge Exam Constitutional WD/WN, vitals as above Eyes EOM intact bilaterally; no conjunctival abnormality ENMT external ear and nose normal, oropharynx normal Neck trachea midline, no thyromegaly normal visual inspection Respiratory normal respiratory effort, lungs clear to auscultation no respiratory distress Cardiovascular Rate/Rhythm: regular rate and + irregularly irregular Extremities: no edema Gastrointestinal (Abdomen) Inspection/Auscultation: abdomen normal to inspection; abdomen not distended Musculoskeletal no cyanosis or clubbing, extremities motor strength 5/5 Skin no rashes, warm and dry Neurologic moves all extremities and awake Psychiatric Orientation: alert, oriented to person and cooperative Discharge Data Allergies Allergy/AdvReac Type Severity Reaction Status Date / Time simvastatin Allergy Intermediate RASH, Verified 08/26/21 14:31 ITCHING Penicillins Allergy Unknown DOESN'T Verified 08/26/21 14:31 KNOW tadalafil AdvReac Intermediate RUNNY Verified 08/26/21 14:31 NOSE, ACHINESS atorvastatin AdvReac Mild MUSCLE Verified 08/26/21 14:31 ACHES Consultations 11/23/21 09:52 ED Decision to Admit Stat 11/23/21 11:41 Consult Cardiology Routine Hospital Course (1) Atrial fibrillation with RVR: Patient anticoagulated on apixaban 5 mg p.o. twice daily Placed on Cardizem drip in ER with some rate improvement, patient with prior EF of approximately 50%. 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 Cardiology thought that patient was possible not taking all his meds, and he was encouraged to double check all his bottles with the regimen listed. (2) Pacemaker: - 2/2 history of asymptomatic SSS - Due for replacement in 1-2 years. To patient's knowledge has been functioning properly. - Interrogation showed gradually increasing rate; no other issues. (3) History of AAA (abdominal aortic aneurysm) repair: - Had a 5.6 cm AAA repaired at the end of August of this year at [facility], after incidentally being found during work-up for bladder tumor. - Did well postoperatively, discharged home on POD #1. - Follows with Dr. Juan Howard MD for this. (4) Bladder tumor: - s/p TURP at beginning of month, patient with a few days of hematuria and dysuria s/p procedure, has since resolved. - Has an appt this with urology in [facility] to discuss next steps. 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 - Held home oral agents (metformin, glipizide, dulaglutide); return to home regimen on discharge. (6) Acid reflux disease: - Continue PPI, convert home omeprazole to hospital formulary. (7) Dyslipidemia: - Continue statin. (8) Hypothyroidism: - Continue levothyroxine daily. (9) Vitamin D deficiency: - Continue vitamin D supplementation. (10) Interstitial lung disease: - Unclear etiology, follows with Dr. Abernathy and has had workup, he is not a candidate for lung biopsy. He is minimally symptomatic. No evidence of respiratory distress today. - Surveillance for now with Mucinex prn. Total Time Total Time Spent Total Time Spent (In Minutes): 35 Discharge Plan Discharge Items Patient Disposition: Home - Self-Care Reason For Visit: AFIB RVR Discharge Diagnosis: Atrial fibrillation with rapid heart rate Activity: Resume your previous activity Non-emergency contact: Primary Care Provider and Phone Screener Call non-emergency contact if: your symptoms worsen Follow-up/Referrals: Shlomo Adam, [Primary Care Provider] - Diet: Carb Consistent or DM2 and Heart Healthy Addtl Attending Provider Instructions: Mr. Stephenson, You were in the hospital with a rapid heart rate from atrial fibrillation. Luckily, your rate has come down nicely with your home medications. Please be sure to check your medication list against what you have at home, and please call Dr. Wood if you are low or out of any medications. Pending Studies at Discharge: No Stand-Alone Forms: My [facility] [place], Smoking Cessation Medications and DC Order Prescriptions: Continued metformin 500 mg tablet 1,000 mg PO .COMPLEX Qty: 270 3RF Rx Instructions: 1,000 mg PO in the morning and 1 tablet in the evening; metoprolol succinate 200 mg tablet extended release 24 hr See Rx Instructions .ROUTE .COMPLEX Qty: 30 11RF Dose Instruction: TAKE 1 TABLET BY MOUTH DAILY Rx Instructions: TAKE 1 TABLET BY MOUTH DAILY tramadol 50 mg tablet 50 mg PO BID Qty: 40 0RF (DME) OneTouch Ultra Blue Test Strip Strip See Dose Instructions .ROUTE .MEDSUPPLY Qty: 100 5RF Dose Instruction: As directed Rx Instructions: use to test blood sugar BID and PRN levothyroxine 112 mcg tablet See Rx Instructions .ROUTE .COMPLEX Qty: 90 3RF Dose Instruction: TAKE 1 TABLET BY MOUTH DAILY Rx Instructions: TAKE 1 TABLET BY MOUTH DAILY aspirin 81 mg tablet,delayed release (DR/EC) 81 mg PO DAILY (DME) lancets [OneTouch Delica Lancets] 33 gauge misc See Dose Instructions .ROUTE .MEDSUPPLY Qty: 100 5RF Dose Instruction: As directed Rx Instructions: use to test blood sugars BID and PRN omega-3 acid ethyl esters 1 gram capsule 2 cap PO DAILY magnesium oxide 400 mg (241.3 mg magnesium) tablet 400 mg PO DAILY cholecalciferol (vitamin D3) 2,000 unit tablet 2,000 units PO DAILY Trulicity 0.75 mg/0.5 mL pen injector 0.75 mg subcut .COMPLEX Qty: 2 11RF Rx Instructions: 0.75 mg subcut weekly; digoxin 125 mcg (0.125 mg) tablet 125 mcg PO DAILY Qty: 90 3RF apixaban 5 mg tablet 5 mg PO BID Qty: 180 3RF glipizide 10 mg tablet 10 mg PO BID Qty: 180 3RF omeprazole 20 mg capsule,delayed release(DR/EC) 20 mg PO DAILY Qty: 90 3RF rosuvastatin 5 mg tablet 5 mg PO .COMPLEX Qty: 15 5RF Rx Instructions: 5 mg PO twice weekly ; verapamil 180 mg tablet extended release 180 mg PO DAILY Qty: 90 3RF Discharge Orders: Discharge Order (Routine); Ordered 11/24/21 Ordered By: Jay Jay Julian Admission Data Admit Date/Time: 11/23/21 10:14 Attending Provider: Jay Jay Julian Admit Provider: Shlomo Adam Primary Care Provider: Shlomo Adam Other Providers: Jameson Hernandez Alexander W. 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
== END 2021-11-24 17:11 | disposition home or self-care (01) | DRG 309 ==
LOC: ED 08:08 → SUATTDRO 10:14 → 1E 10:14

== ENCOUNTER 2022-09-13 08:46 | Inpatient (IN) ==
--- NOTE | 2022-09-13 09:33 | Emergency Department Note ---
History of Present Illness General Chief Complaint: Abdominal Pain Stated Complaint: ABDOMINAL PAIN Time Seen by Provider: 09/13/22 09:11 History of Present Illness Provider Complaint: abdominal pain Onset (ago): 1 day(s) Pain Consistency: constant Location: diffuse Severity: moderate Maximum Pain Intensity: 8 Current Pain Intensity: 8 Quality: + aching and + dull Relieved By: + nothing Exacerbated By: + nothing Context: no foreign travel, no possible food poisoning, no sick contacts, no recent antibiotic use, no recent surgery/procedure or no recent injury Associated Symptoms: + constipation and + breathing difficulty; no nausea, no vomiting, no diarrhea, no fever, no chills, no dysuria, no hematemesis, no melena, no hematuria and no headache Family member at bedside states the patient has not been eating well Home Medications Medication Instructions Recorded Confirmed Type aspirin 81 mg tablet,delayed 81 mg PO DAILY 10/14/18 08/10/22 History release cholecalciferol (vitamin D3) 50 2,000 units PO DAILY 10/14/18 08/10/22 History mcg (2,000 unit) tablet lancets 33 gauge (OneTouch Delica #100 ea 10/14/18 08/10/22 Rx Lancets) magnesium oxide 400 mg (241.3 mg 400 mg PO DAILY 10/14/18 08/10/22 History magnesium) tablet omega-3 acid ethyl esters 1 gram 2 cap PO DAILY 10/14/18 08/10/22 History capsule omeprazole 20 mg capsule,delayed 20 mg PO DAILY #90 caps 05/15/21 09/13/22 Rx release levothyroxine 112 mcg tablet See Rx Instructions .Route 11/03/21 09/13/22 Rx .COMPLEX #90 tabs cetirizine 10 mg tablet 10 mg PO DAILY 12/01/21 08/10/22 History docusate sodium [Stool Softener] PO 12/01/21 08/10/22 History apixaban 5 mg tablet 5 mg PO BID #180 tabs 05/13/22 09/13/22 Rx digoxin 125 mcg (0.125 mg) tablet 125 mcg PO DAILY #90 tabs 05/13/22 09/13/22 Rx metformin 500 mg tablet 1,000 mg PO .COMPLEX #270 tabs 05/13/22 09/13/22 Rx olmesartan 20 mg tablet 20 mg PO DAILY #90 tabs 06/02/22 09/13/22 Rx metoprolol succinate 200 mg See Rx Instructions .Route 06/12/22 09/13/22 Rx tablet,extended release 24 hr .COMPLEX #30 tabs verapamil 180 mg tablet,extended 180 mg PO DAILY #90 tabs 06/12/22 09/13/22 Rx release levalbuterol tartrate 45 2 inh inhalation Q6H PRN shortness 07/09/22 09/13/22 Rx mcg/actuation aerosol inhaler of breath #15 grams ondansetron HCl 8 mg tablet 8 mg PO Q12H PRN nausea #60 tabs 07/09/22 09/13/22 Rx rosuvastatin 5 mg tablet 5 mg PO .COMPLEX #15 tabs 07/21/22 09/13/22 Rx blood sugar diagnostic (OneTouch #100 ea 08/24/22 Rx Ultra Test strips) albuterol sulfate 0.63 mg/3 mL 0.63 mg inhalation Q6H PRN Wheezing 09/13/22 0 09/13/22 History solution for nebulization ipratropium bromide 0.02 % 2.5 ml inhalation Q6H PRN Wheezing 09/13/22 09/13/22 History solution for inhalation Allergies Allergy/AdvReac Type Severity Reaction Status Date / Time simvastatin Allergy Intermediate RASH, Verified 08/10/22 08:00 ITCHING Penicillins Allergy Unknown DOESN'T Verified 08/10/22 08:00 KNOW nintedanib AdvReac Intermediate sickto Verified 08/10/22 08:00 stomach tadalafil AdvReac Intermediate RUNNY Verified 08/10/22 08:00 NOSE, ACHINESS atorvastatin AdvReac Mild MUSCLE Verified 08/10/22 08:00 ACHES dulaglutide [From Trulicity] AdvReac Nausea Verified 08/10/22 08:00 Past Med/Surg History Medical History Acid reflux disease Anticoagulant long-term use Arteriosclerotic cardiovascular disease Biceps muscle tear Biceps tendon rupture Bladder cancer 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, uncontrolled Dyslipidemia Erythema migrans (Lyme disease) Gastritis History of squamous cell carcinoma of skin Hypothyroidism Onychomycosis Permanent atrial fibrillation Thrombocytopenia Tubular adenoma of colon (11/10/13) Vitamin D deficiency Surgical History History of AAA (abdominal aortic aneurysm) repair History of bladder surgery "scraped" for bladder cancer History of colonoscopy with polypectomy (11/10/13) tubular adenoma History of inguinal hernia repair History of permanent cardiac pacemaker placement History of sinus surgery Hx of tonsillectomy S/P cataract surgery right - 12/16/16 left 12/30/16 Family History Father Aortic aneurysm Brother Coronary heart disease Sudden cardiac arrest Sister History of colon cancer Colorectal cancer Denies family history of Ovarian cancer Prostate cancer Diabetes Depression Myocardial infarction Breast cancer Lung cancer Social History Smoking Status: Former smoker Age Started Using Tobacco: 16; Age Quit Using Tobacco: 25; Second Hand Exposure: No; Do You Dip or Chew Tobacco: No; Hx Alcohol Use: No Hx Substance Use: No Preferred Language: Persian Communication Ability: Effective Visual Impairment: No Limitations Hearing Ability: Hard of Hearing 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 Beliefs That Will Affect Care: None marital status: Current Living Situation: Spouse current occupational status: retired Feels Safe at Home: Yes Childhood Exposure to Second-Hand Smoke: No Diet: regular caffeine: Yes Dental Care, Regularly: No Physical Activity Frequency: Daily Seatbelt Use: always Sunscreen Use: No Assistive Devices: Denture - Upper, Denture - Lower, Glasses, Hearing Aid - Left and Hearing Aid - Right Physical Exam Vital Signs: Vital Signs - 24 hr 09/13/22 09:00 09/13/22 09:12 09/13/22 10:13 Temperature 36.4 C L Temperature Source Temporal Artery Sc an Pulse Rate 80 80 116 H Pulse Rhythm Regular Respiratory Rate 14 14 Blood Pressure 146/75 H Blood Pressure Destiney n 98 Pulse Oximetry 94 94 Oxygen Delivery Me thod Room Air Room Air Sepsis New/Unexpla ined Change in Men bernadine Status No Sepsis Action Take n by Nursing No Action Required 09/13/22 10:04 09/13/22 10:51 Temperature Temperature Source Pulse Rate 101 H 102 H Pulse Rhythm Respiratory Rate 23 18 Blood Pressure 140/89 Blood Pressure Destiney n 106 Pulse Oximetry Oxygen Delivery Me thod Sepsis New/Unexpla ined Change in Men bernadine Status Sepsis Action Take n by Nursing Physical Exam: Physical Exam GENERAL: oriented to person, place, and time. appears well-developed and well- nourished. HENT: Exam performed. - Head: Normocephalic and atraumatic. EYES: Conjunctivae and EOM are normal. Right eye exhibits no discharge. Left eye exhibits no discharge. No scleral icterus. NECK: Normal range of motion. Neck supple. No JVD present. CV: Normal rate, irregular rhythm, normal heart sounds and intact distal pulses. There is no peripheral edema. Palpable radial pulses bue. PULM/CHEST: Effort normal and breath sounds normal. No respiratory distress. No stridor. no wheezes. no rales. ABD: The abdomen is soft. There is no tenderness. NEURO: Motor and sensation grossly intact. SKIN: Skin is warm and dry. He is not diaphoretic. PSYCH: normal mood and affect. Behavior is normal. Judgment and thought content normal. Course Course 910: The patient was evaluated in room C5. A complete history and physical exam was performed Cardiac monitoring: An order was placed for continuous cardiac monitoring. The monitor shows a rate of 110 with atrial fibrilation rhythm interpreted by me 1232: Vital signs stable. Labs are significant for a sodium of 122 and magnesium of 1.5. This is consistent with the patient not eating or drinking his bedside. No altered mental status no seizure-like activity no need for hypertonic saline at this time. Gentle rehydration with normal saline will be given. Magnesium repletion will be started in the emergency department. CT of the abdomen pelvis shows no bowel obstruction. It does make mention that there is a infrarenal aortic aneurysm stent with an aortoiliac stent measuring 54 mm which is enlarged from 51 mm when compared to CT from June 2021. A type II endoleak was also seen. External medical were reviewed. There are scanned vascular surgery reports from July 2022 from his vascular surgeon at [facility]. The last diagnostic study done in July 21, 2022 showed a AAA measuring 5.9 cm with a type II endoleak. Previous CTs showed a type II endoleak and the residual AAA age measured between 5.6 and 5.9 cm thus no significant change in today's CT compared to his prior CTs at [place]. Patient will be admitted to the [facility] team Dr. Saez aware of patient. Administered Medications Sodium Chloride (Nss 1000ml) 1,000 mls @ 80 mls/hr IV .[id number] LYNETTE Stop: 10/13/22 10:29 Last Admin: 09/13/22 10:54 Dose: 80 mls/hr Documented By: CASSANDRA Discontinued Medications Magnesium Sulfate/Dextrose (Magnesium Sulfate / D5w) 1 gm in 100 mls @ 100 mls/hr IV NOW STA Stop: 09/13/22 11:18 Last Infusion: 09/13/22 11:56 Dose: 0 mls/hr Documented By: Admin: 09/13/22 10:54 Dose: 100 mls/hr Documented By: CASSANDRA Ioversol (Optiray 320 500ml) 94 ml IV ONCE ONE Stop: 09/13/22 10:43 Last Admin: 09/13/22 10:42 Dose: 94 ml Documented By: ASHLEY Medical Decision Making Laboratory Data Attestation: I reviewed the patient's lab results. 09/13/22 09:25 09/13/22 09:25 Lab Results 09/13/22 09/13/22 09/13/22 Range/Units 09:04 09:25 09:25 WBC 6.23 (4.8-10.8) K/ul RBC 4.41 L (4.70-6.10) M/uL Hgb 13.5 L (14.0-18.0) g/dl POC Hgb (14.0-18.0) g/dl Hct 38.6 L (42.0-52.0) % POC Hct (42-52) % MCV 87.5 (80.0-100.0) fL MCH 30.6 (25.0-34.0) pg MCHC 35.0 (32.0-36.0) g/dL RDW Std Deviation 37.6 (36.4-46.3) fL RDW Coeff of Shazia 11.8 (11.5-14.5) % Plt Count 154 (130-400) K/uL MPV 9.8 (9.4-12.4) fL Immature Gran % (Auto) 0.2 % Neut % (Auto) 68.6 % Lymph % (Auto) 20.7 % [place] % (Auto) 8.3 % Eos % (Auto) 1.9 % Baso % (Auto) 0.3 % Neut # (Auto) 4.27 (1.40-6.50) K/uL Lymph # (Auto) 1.29 (1.2-3.4) K/uL [place] # (Auto) 0.52 (0.11-0.59) K/uL Eos # (Auto) 0.12 (0-0.50) K/uL Baso # (Auto) 0.02 (0-0.2) K/uL Immature Gran # (Auto) 0.01 (0.01-0.20) K/uL POC Sodium (135-144) mmol/L Sodium 122 L (136-145) mmol/L POC Potassium (3.3-5.0) mmol/L Potassium 5.0 (3.5-5.1) mmol/L POC Chloride (101-112) mmol/L Chloride 84 L (98-107) mmol/L Carbon Dioxide 33 H (21-32) mmol/L POC Total CO2 (24-31) mmol/L Anion Gap 5 (3-11) POC Anion Gap (16-25) mmol/L POC BUN (7-18) mg/dl BUN 17 (6-23) mg/dl Creatinine 0.98 (0.6-1.4) mg/dl POC Creatinine (0.6-1.3) mg/dl Est Cr Clr Drug Dosing Not Reportable Est GFR ( Amer) 82.9 ml/min Est GFR (Non-Af Amer) 71.5 ml/min BUN/Creatinine Ratio 17.3 (10-20) Glucose 143 H (70-99(Fasting)) mg/dl POC Glucose (other) (70-99) mg/dl Calcium 9.2 (8.6-10.3) mg/dl POC Ioniz Calcium Taisha (1.12-1.32) mmol/l Magnesium 1.5 L (1.7-2.4) mg/dl Total Bilirubin 0.7 (0.2-1.0) mg/dl Direct Bilirubin 0.2 (0-0.2) mg/dl AST 21 (13-39) U/L ALT 11 (7-52) U/L Alkaline Phosphatase 67 (34-104) U/L Troponin I High Sens 19.6 (0-20) pg/ml Total Protein 7.7 (6.0-8.3) gm/dl Albumin 4.1 (3.4-5.0) gm/dl Lipase 36 (11-82) U/L SARS-CoV-2 (PCR) NEGATIVE (Negative) Influenza Type A (PCR) Negative (Neg) Influenza Type B (PCR) Negative (Neg) RSV (RT-PCR) Negative (Neg) 09/13/22 Range/Units 09:52 WBC (4.8-10.8) K/ul RBC (4.70-6.10) M/uL Hgb (14.0-18.0) g/dl POC Hgb 14.6 (14.0-18.0) g/dl Hct (42.0-52.0) % POC Hct 43 (42-52) % MCV (80.0-100.0) fL MCH (25.0-34.0) pg MCHC (32.0-36.0) g/dL RDW Std Deviation (36.4-46.3) fL RDW Coeff of Shazia (11.5-14.5) % Plt Count (130-400) K/uL MPV (9.4-12.4) fL Immature Gran % (Auto) % Neut % (Auto) % Lymph % (Auto) % [place] % (Auto) % Eos % (Auto) % Baso % (Auto) % Neut # (Auto) (1.40-6.50) K/uL Lymph # (Auto) (1.2-3.4) K/uL [place] # (Auto) (0.11-0.59) K/uL Eos # (Auto) (0-0.50) K/uL Baso # (Auto) (0-0.2) K/uL Immature Gran # (Auto) (0.01-0.20) K/uL POC Sodium 124 L (135-144) mmol/L Sodium (136-145) mmol/L POC Potassium 4.7 (3.3-5.0) mmol/L Potassium (3.5-5.1) mmol/L POC Chloride 83 L (101-112) mmol/L Chloride (98-107) mmol/L Carbon Dioxide (21-32) mmol/L POC Total CO2 31 (24-31) mmol/L Anion Gap (3-11) POC Anion Gap 16.0 (16-25) mmol/L POC BUN 18 (7-18) mg/dl BUN (6-23) mg/dl Creatinine (0.6-1.4) mg/dl POC Creatinine 1.0 (0.6-1.3) mg/dl Est Cr Clr Drug Dosing Est GFR ( Amer) ml/min Est GFR (Non-Af Amer) ml/min BUN/Creatinine Ratio (10-20) Glucose (70-99(Fasting)) mg/dl POC Glucose (other) 135 H (70-99) mg/dl Calcium (8.6-10.3) mg/dl POC Ioniz Calcium Taisha 1.17 (1.12-1.32) mmol/l Magnesium (1.7-2.4) mg/dl Total Bilirubin (0.2-1.0) mg/dl Direct Bilirubin (0-0.2) mg/dl AST (13-39) U/L ALT (7-52) U/L Alkaline Phosphatase (34-104) U/L Troponin I High Sens (0-20) pg/ml Total Protein (6.0-8.3) gm/dl Albumin (3.4-5.0) gm/dl Lipase (11-82) U/L SARS-CoV-2 (PCR) (Negative) Influenza Type A (PCR) (Neg) Influenza Type B (PCR) (Neg) RSV (RT-PCR) (Neg) Imaging Data Radiologist's Impression: Abdomen/Pelvis CT 09/13/22 09:12 CT abd pelvis IV con only CLINICAL HISTORY: abd pain TECHNIQUE: Helical axial images of the abdomen and pelvis were obtained and displayed. Automated dose lowering techniques and/or adjustment according to patient size were utilized for this exam. This exam was performed with intravenous contrast. CT DOSE: 832.16 mGy.cm COMPARISON: Comparison is made to CT chest 06/18/2021 FINDINGS: Lower chest: Bilateral lower lung fibrotic changes are seen. Cardiomegaly is seen. Liver: Nodular contour of the liver is seen compatible with cirrhosis. Gallbladder and biliary tree: The gallbladder is contracted. No intra- or extrahepatic biliary ductal dilation. Pancreas: Unremarkable, no focal lesions. Spleen: Unremarkable. Adrenals: Unremarkable. Kidneys and ureters: Unremarkable. Bladder: Unremarkable. Reproductive organs: Prostatomegaly is seen. Bowel: The appendix is normal. Lymph nodes Retroperitoneal: Paraesophageal lymph node is seen measuring up to 11 mm. Additional subcentimeter nodes are seen. Pelvic: Unremarkable. Mesenteric: Unremarkable. Peritoneum: Normal. Vessels: Atherosclerotic calcifications are seen. There is a infrarenal aortic aneurysm stent with an aortobiiliac stent. This measures up to 54 mm, enlarged from prior exam where it measured 51 mm. There is an endoleak, likely type II from an anterior branch vessel. Abdominal wall: Unremarkable. Bones: Degenerative changes in the visualized spine. IMPRESSION: 1. Interval mild enlargement of infrarenal aortic aneurysm with a type II endoleak noted. Otherwise no acute abnormalities. 2. Redemonstration of interstitial lung disease. 3. Cardiomegaly. ACT 112: Negative or not required by law. Electronically signed by: Gary Sarah M.D. 09/13/2022 12:23 PM Chest X-Ray 09/13/22 09:12 XR chest 1V portable CLINICAL HISTORY: cough TECHNIQUE: Single frontal radiograph of the chest was obtained. Comparison: Comparison is made to chest radiograph 11/23/2021 FINDINGS: Dual lead pacemaker is seen. Cardiomegaly is noted. The aortic arch is calcified. Reticular interstitial opacities are seen. No evidence of pleural effusion or pneumothorax. IMPRESSION: Interstitial opacities are seen without evidence of superimposed pneumonia. ACT 112: Negative or not required by law. Electronically signed by: Gary Sarah M.D. 09/13/2022 9:44 AM ECG Data Attestation: I personally reviewed and interpreted this ECG as follows: Indication: abdominal pain Rate (beats per minute): 116 Rhythm: atrial fibrillation Findings: + PVC; no ST depression, no ST elevation or no prolonged QT [facility] Narrative 0911: The patient was evaluated in room C5. A complete history and physical exam was performed Cardiac monitoring: An order was placed for continuous cardiac monitoring. The monitor shows a rate of 110 with atrial fibrilation rhythm interpreted by pa 1232: Vital signs stable. Labs are significant for a sodium of 122 and magnesium of 1.5. This is consistent with the patient not eating or drinking his bedside. No altered mental status no seizure-like activity no need for hypertonic saline at this time. Gentle rehydration with normal saline will be given. Magnesium repletion will be started in the emergency department. CT of the abdomen pelvis shows no bowel obstruction. It does make mention that there is a infrarenal aortic aneurysm stent with an aortoiliac stent measuring 54 mm which is enlarged from 51 mm when compared to CT from June 2021. A type II endoleak was also seen. External medical were reviewed. There are scanned vascular surgery reports from July 2022 from his vascular surgeon at [facility]. The last diagnostic study done in July 21, 2022 showed a AAA measuring 5.9 cm with a type II endoleak. Previous CTs showed a type II endoleak and the residual AAA age measured between 5.6 and 5.9 cm thus no significant change in today's CT compared to his prior CTs at [place]. Patient will be admitted to the [facility] team Dr. Saez aware of patient. Impression & Plan Acute hyponatremia, Hypomagnesemia Discharge Plan Visit Data Chief Complaint: Abdominal Pain Stated Complaint: ABDOMINAL PAIN ED Provider: Roosevelt Rodriguez Discharge Problem: Acute hyponatremia, Hypomagnesemia Patient Disposition: Admitted As Inpatient Forms Stand Alone Forms: My [facility] Prescriptions Prescriptions: No Action levothyroxine 112 mcg tablet See Rx Instructions .ROUTE .COMPLEX Qty: 90 3RF Dose Instruction: TAKE 1 TABLET BY MOUTH DAILY Rx Instructions: TAKE 1 TABLET BY MOUTH DAILY metformin 500 mg tablet 1,000 mg PO .COMPLEX Qty: 270 3RF Rx Instructions: 1,000 mg PO in the morning and 1 tablet in the evening; digoxin 125 mcg (0.125 mg) tablet 125 mcg PO DAILY Qty: 90 3RF apixaban 5 mg tablet 5 mg PO BID Qty: 180 3RF metoprolol succinate 200 mg tablet extended release 24 hr See Rx Instructions .ROUTE .COMPLEX Qty: 30 11RF Dose Instruction: TAKE 1 TABLET BY MOUTH DAILY Rx Instructions: TAKE 1 TABLET BY MOUTH DAILY verapamil 180 mg tablet extended release 180 mg PO DAILY Qty: 90 3RF rosuvastatin 5 mg tablet 5 mg PO .COMPLEX Qty: 15 5RF Rx Instructions: 5 mg PO twice weekly ; (DME) UnafinanceTouch Ultra Test Strip See Rx Instructions .ROUTE .COMPLEX Qty: 100 3RF Dose Instruction: USE TO TEST BLOOD SUGAR 2 TIMES A DAY AND NEEDED Rx Instructions: USE TO TEST BLOOD SUGAR 2 TIMES A DAY AND NEEDED aspirin 81 mg tablet,delayed release (DR/EC) 81 mg PO DAILY Rx Instructions: [facility] Pharmacist unable to verify OTCS (DME) lancets [OneTouch Delica Lancets] 33 gauge misc See Dose Instructions .ROUTE .MEDSUPPLY Qty: 100 5RF Dose Instruction: As directed Rx Instructions: use to test blood sugars BID and PRN omega-3 acid ethyl esters 1 gram capsule 2 cap PO DAILY Rx Instructions: [facility] Pharmacist unable to verify OTCS magnesium oxide 400 mg (241.3 mg magnesium) tablet 400 mg PO DAILY Rx Instructions: [facility] Pharmacist unable to verify [facility]CS cholecalciferol (vitamin D3) 2,000 unit tablet 2,000 units PO DAILY Rx Instructions: [facility] Pharmacist unable to verify [facility]CS omeprazole 20 mg capsule,delayed release(DR/EC) 20 mg PO DAILY Qty: 90 3RF levalbuterol tartrate 45 mcg/actuation HFA aerosol inhaler 2 inh inhalation Q6H PRN (Reason: shortness of breath) Qty: 15 2RF Rx Instructions: filled in july ondansetron HCl 8 mg tablet 8 mg PO Q12H PRN (Reason: nausea) Qty: 60 2RF cetirizine 10 mg tablet 10 mg PO DAILY Rx Instructions: [facility] Pharmacist unable to verify OTCS docusate sodium [Stool Softener] PO Rx Instructions: [facility] Pharmacist unable to verify OTCS olmesartan 20 mg tablet 20 mg PO DAILY Qty: 90 3RF albuterol sulfate 0.63 mg/3 mL solution for nebulization 0.63 mg inhalation Q6H PRN (Reason: Wheezing) ipratropium bromide 0.02 % solution 2.5 ml inhalation Q6H PRN (Reason: Wheezing) Referrals Referrals: Shlomo Adam, [Primary Care Provider] -
--- NOTE | 2022-09-13 09:45 | XRay Report ---
XR chest 1V portable CLINICAL HISTORY: cough TECHNIQUE: Single frontal radiograph of the chest was obtained. Comparison: Comparison is made to chest radiograph 11/23/2021 FINDINGS: Dual lead pacemaker is seen. Cardiomegaly is noted. The aortic arch is calcified. Reticular interstit ial opacities are seen. No evidence of pleural effusion or pneumothorax. IMPRESSION: Interstitial opacities are seen without evidence of superimposed pneumonia. ACT 112: Negative or not required by law. Electronically signed by: Gary Sarah M.D. 09/13/2022 9:44 AM
[2022-09-13 10:06] LABS: iSTAT Hemoglobin 14.6 g/dl (14.0-18.0); iSTAT Ionized Calcium 1.17 mmol/l (1.12-1.32); iSTAT Potassium 4.7 mmol/L (3.3-5.0)
[2022-09-13 10:06] LABS: Basophils # (auto) 0.02 K/uL (0-0.2); Basophils % (auto) 0.3 %; Eosinophils # (auto) 0.12 K/uL (0-0.50); Eosinophils % (auto) 1.9 %; Hematocrit (blood only) 38.6 % (42.0-52.0); Hemoglobin 13.5 g/dl (14.0-18.0); Immature Granulocytes # (auto) 0.01 K/uL (0.01-0.20); Immature Granulocytes % (auto) 0.2 %; Lymphocytes # (auto) 1.29 K/uL (1.2-3.4); Lymphocytes % (auto) 20.7 %; Mean Corpuscular Hemoglobin 30.6 pg (25.0-34.0); Mean Corpuscular Volume 87.5 fL (80.0-100.0); Mean Platelet Volume 9.8 fL (9.4-12.4); Monocytes # (auto) 0.52 K/uL (0.11-0.59); Monocytes % (auto) 8.3 %; Neutrophils # (auto) 4.27 K/uL (1.40-6.50); Neutrophils % (auto) 68.6 %; Platelet Count 154 K/uL (130-400); RDW Coefficient of Variation 11.8 % (11.5-14.5); RDW Standard Deviation 37.6 fL (36.4-46.3); Red Blood Count 4.41 M/uL (4.70-6.10); White Blood Count 6.23 K/ul (4.8-10.8)
[2022-09-13 10:11] LABS: Alanine Aminotransferase 11 U/L (7-52); Albumin Level 4.1 gm/dl (3.4-5.0); Alkaline Phosphatase 67 U/L (34-104); Anion Gap 5 (3-11); Aspartate Aminotransferase 21 U/L (13-39); BUN Creatinine Ratio 17.3 (10-20); Bilirubin Direct 0.2 mg/dl (0-0.2); Bilirubin,Total 0.7 mg/dl (0.2-1.0); Blood Urea Nitrogen 17 mg/dl (6-23); Calcium 9.2 mg/dl (8.6-10.3); Carbon Dioxide 33 mmol/L (21-32); Chloride 84 mmol/L (98-107); Est GFR (African American) 82.9 ml/min; Est GFR (Non-African American) 71.5 ml/min; Glucose 143 mg/dl (70-99(Fasting)); Lipase 36 U/L (11-82); Magnesium 1.5 mg/dl (1.7-2.4); Sodium 122 mmol/L (136-145); Total Protein 7.7 gm/dl (6.0-8.3)
[2022-09-13 10:17] LABS: Troponin I High Sensitivity 19.6 pg/ml (0-20)
[2022-09-13] MEDS ORDERED: MAGNESIUM SULFATE / D5W 1 GM/100 ML BAG IV STA (10:19)
[2022-09-13] MEDS ORDERED: SODIUM CHLORIDE 0.9% 1000ML 1,000 ML IV SCH (10:30)
[2022-09-13 10:35] LABS: Influenza A virus by PCR Negative (Neg); Influenza B virus by PCR Negative (Neg); RSV by PCR Negative (Neg); SARS CoV2 RNA(COVID-19) Ceph NEGATIVE (Negative)
[2022-09-13] MEDS ORDERED: OPTIRAY 320 500ml IV ONE (10:42)
--- NOTE | 2022-09-13 12:14 | History & Physical Report ---
Date of Service September 13, 2022 Assessment & Plan (1) Abdominal pain: Plan: Abdominal pain? 2/2 urinary retention, acute - CT-A/P w contrast on admit: There is a infrarenal aortic aneurysm stent with an aortobiiliac stent. This measures up to 54 mm, enlarged from prior exam where it measured 51 mm. There is an endoleak, likely type II from an anterior branch vessel. Otherwise no acute abnormalities. Aneurysmal sac is larger from initial imaging available in our system, this is actually diminished in size compared to the 5.9 cm at his last follow-up in July with [facility] per 07/2022 result. No evidence of enlarging sac on admission Patient is with a significantly distended bladder and abdominal tenderness. Suspect his abdominal discomfort is from urinary distention Bladder scan and cath pending No evidence of acute abdominal pathology on CT No antibiotics indicated at time of admission. No dysuria Patient does report constipation which is made voiding more difficult.? Urinary retention 2/2 fecal retention. Bowel regimen ordered. No hydrone phrosis is noted, renal function is at baseline creatinine 0.98 on admission (2) Hyponatremia: Plan: Acute on chronic hyponatremia CXR: Interstitial opacity seen, no evidence of superimposed pneumonia Admitting sodium 122 Patient with longstanding history of intermittent hyponatremia previously ranging from [id number] Admitting sodium 122. With history of bladder malignancy, no history of lung cancer/SCC. No evidence of pneumonia on admission. No urine electrolytes available for review. Urine studies pending. ? SIADH versus mild obstructive uropathy causing urinary retention. We will treat urinary retention as above, follow urine studies, and in the meantime fluid restrict 1500 cc/day. May continue salt tabs. (3) History of AAA (abdominal aortic aneurysm) repair: Plan: AAA s/p EVAR 08/28/2021; chronic With known type II endoleak, stable aneurysmal sac size. Last CTA 07/21/2022 with AAA 5.9 cm in greatest dimension, type II endoleak visualized and stable. - CT-A/P w contrast on admit: There is a infrarenal aortic aneurysm stent with a n aortobiiliac stent. This measures up to 54 mm, enlarged from prior exam where it measured 51 mm. There is an endoleak, likely type II from an anterior branch vessel. Otherwise no acute abnormalities. Aneurysmal sac is larger from initial imaging available in our system, this is actually diminished in size compared to the 5.9 cm at his last follow-up in July with [facility] per 07/2022 result. No evidence of enlarging sac on admission Continued on aspirin 81 mg daily Is on Eliquis twice daily for A-fib Continued on Crestor 5 mg daily for hyperlipidemia - Follows with Dr. Howard [facility] Vascular surgery (4) Interstitial lung disease: Plan: Idiopathic pulmonary fibrosis/ILD; shortness of breath acute on chronic Follows with Ed Rogers pulmonology CXR on admission: No evidence of superimposed pneumonia, chronic opacities redemonstrated. BioFire negative No leukocytosis Last seen 08/26/2022. Continuing follow-up in 4 weeks. At that visit or obtaining baseline eval including high-resolution CT, PFTs, walk test, nocturnal pulse ox. Patient was placed on 10-day course of Augmentin for purulent bro nchitis. OF antifibrotic therapy was to be resumed once current home supply was clarified. Last high-resolution CT in system 01/2021:1. Extensive subpleural reticulation and groundglass opacity with multifocal honeycombing and traction bronchiectasis. The findings favor UIP pattern of pulmonary fibrosis. No superimposed consolidation to suggest pneumonia.2. 1.1 cm density along the right major fissure which likely reflects scarring/fibrosis. 6 mm right apical nodule. These are probably benign but indeterminate. A chest CT in 6 months to ensure stability is recommended.3. Multiple mildly enlarged mediastinal lymph nodes which may be related to pulmonary fibrosis. These can be assessed on follow-up CT. Moderate cardiomegaly and extensive coronary artery calcification. ? [place] [facility] [place]. Continue lev albuterol as needed (5) Bladder cancer: Plan: Bladder cancer s/p TURBT 06/17/2022; chronic with acute urinary retention Per note w/ With consideration for intravesical BCG in the future With history of tobacco use now in remission Patient with urinary retention as above. If not improving following straight cath trial and constipation treatment, consult urology (6) Cervical radiculopathy: Plan: Cervical radiculopathy, idiopathic polyneuropathy; chronic stable With electromyogram April 2022; showed mild underlying polyneuropathy and superimposed left carpal tunnel syndrome difficult to exclude. Evidence of moderate chronic active left mid cervical radiculopathy, suspect C6 without myelopathy. Patient condition of intermittent symptoms worsened by cold weather. 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 Did not tolerate Trulicity prior to this. Weight-based basal bolus while inpatient lantus 7 units twice daily, CF 55, ratio 20 Goal BSG [id number] Glucose checks AC/at bedtime, DM 2 diet (8) Hypothyroidism: Plan: Hypothyroidism chronic, stable TSH pending Continue Synthroid 112 mcg daily (9) Atrial fibrillation with rapid ventricular response: Plan: Permanent A-fib with pacemaker 2/2 sick sinus syndrome Stable on verapamil 180 extended release, digoxin 125 mcg daily (level pending on admission), metoprolol succinate 200 mg daily Continue Eliquis anticoagulation No RVR on admission Echo 07/29/2022: Mild LVH. Mild right ventricular systolic dysfunction. Severe biatrial dilation. Mild AR. Trace MR. Mild TR. Mild CT. EF 50-55%. RVSP 40-50 mmHg. (10) HTN (hypertension): Plan: Hypertension, Chronic, stable Adequately controlled as outpatient on verapamil/metoprolol as noted in addition to olmesartan 20 mg daily. Continue these. Plan DVT prophylaxis: Anticoagulated Disposition: PCU given A-fib with tachycardia, availability of IV rate control agents CODE STATUS: DNR/DNI Diet: DM 2, fluid restrict History of Present Illness Primary Care Provider: Shlomo Adam DO Cheng is an 82-year-old male with a past medical history of interstitial lung disease, idiopathic polyneuropathy, microalbuminemia, A-fib with RVR on Eliquis, past AAA with repair, hypertension, GERD, hypothyroidism, type II DM, NSVT who presents with abdominal pain and hyponatremia. Per patient reports he came to the hospital due to abdominal pain, constipation and some shortness of breath which is around his normal may be a little bit worse than normal with a feeling of constipation. "Ed" reports he came in for difficulty with bowl movement and 'can't poop, made my stomach hurt.' Hasn't been sleeping well. Poor energy. Just wants to lay down and sleep. Endorses intermittent abdominal pain similar to prior constipation, has not improved with prune juice or laxative. Helped a little, although had had some urinary frequency as well. No burning with urination. No abdominal pain at time of admission. Had has some R shoulder/wrist pain similar to his prior neuropathy which has not changed. Notes this feels worse when it is cold and the room is cold No chest pain. No chest pressure Has a chronic dry cough, no change. Some slight white sputum production. Denies fever/chills/sweats Is watching endoleak with Luis. Had dicussed fixing it but this not been required today. Had bladder cancer with TURBT, followup pending 09/18. Medical History: Reviewed Medications: Reviewed. Did not take AM meds/ Surgical History: Reviewed Family history: Reviewed Allergies: Reviewed Social History: Former smoker. Code Status: DNR/DNI Allergies Allergy/AdvReac Type Severity Reaction Status Date / Time simvastatin Allergy Intermediate RASH, Verified 08/10/22 08:00 ITCHING Penicillins Allergy Unknown DOESN'T Verified 08/10/22 08:00 KNOW nintedanib AdvReac Intermediate sickto Verified 08/10/22 08:00 stomach tadalafil AdvReac Intermediate RUNNY Verified 08/10/22 08:00 NOSE, ACHINESS atorvastatin AdvReac Mild MUSCLE Verified 08/10/22 08:00 ACHES dulaglutide [[facility]] AdvReac Nausea Verified 08/10/22 08:00 Home Medications Medication Instructions Recorded Confirmed Type aspirin 81 mg tablet,delayed 81 mg PO DAILY 10/14/18 08/10/22 History release cholecalciferol (vitamin D3) 50 2,000 units PO DAILY 10/14/18 08/10/22 History mcg (2,000 unit) tablet lancets 33 gauge ([place] [employer] [employer] #100 ea 10/14/18 08/10/22 Rx Lancets) magnesium oxide 400 mg (241.3 mg 400 mg PO DAILY 10/14/18 08/10/22 History magnesium) tablet omega-3 acid ethyl esters 1 gram 2 cap PO DAILY 10/14/18 08/10/22 History capsule omeprazole 20 mg capsule,delayed 20 mg PO DAILY #90 caps 05/15/21 08/10/22 Rx release levothyroxine 112 mcg tablet See Rx Instructions .Route 08/01/22 05/08/23 Rx .COMPLEX #90 tabs cetirizine 10 mg tablet 10 mg PO DAILY 12/01/21 08/10/22 History docusate sodium [Stool Softener] PO 12/01/21 08/10/22 History apixaban 5 mg tablet 5 mg PO BID #180 tabs 05/13/22 08/10/22 Rx digoxin 125 mcg (0.125 mg) tablet 125 mcg PO DAILY #90 tabs 05/13/22 08/10/22 Rx metformin 500 mg tablet 1,000 mg PO .COMPLEX #270 tabs 05/13/22 08/10/22 Rx olmesartan 20 mg tablet 20 mg PO DAILY #90 tabs 06/02/22 08/10/22 Rx metoprolol succinate 200 mg See Rx Instructions .Route 06/12/22 08/10/22 Rx tablet,extended release 24 hr .COMPLEX #30 tabs verapamil 180 mg tablet,extended 180 mg PO DAILY #90 tabs 06/12/22 08/10/22 Rx release levalbuterol tartrate 45 2 inh inhalation Q6H PRN shortness 07/09/22 08/10/22 Rx mcg/actuation aerosol inhaler of breath #15 grams ondansetron HCl 8 mg tablet 8 mg PO Q12H PRN nausea #60 tabs 07/09/22 08/10/22 Rx rosuvastatin 5 mg tablet 5 mg PO .COMPLEX #15 tabs 07/21/22 08/10/22 Rx blood sugar diagnostic (OneTouch #100 ea 08/24/22 Rx Ultra Test strips) Past Med/Surg History Medical History Acid reflux disease Anticoagulant long-term use Arteriosclerotic cardiovascular disease Biceps muscle tear Biceps tendon rupture Bladder cancer 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, uncontrolled Dyslipidemia Erythema migrans (Lyme disease) Gastritis History of squamous cell carcinoma of skin Hypothyroidism Onychomycosis Permanent atrial fibrillation Thrombocytopenia Tubular adenoma of colon (11/10/13) Vitamin D deficiency Surgical History History of AAA (abdominal aortic aneurysm) repair History of bladder surgery "scraped" for bladder cancer History of colonoscopy with polypectomy (11/10/13) tubular adenoma History of inguinal hernia repair History of permanent cardiac pacemaker placement History of sinus surgery Hx of tonsillectomy S/P cataract surgery right - 12/16/16 left 12/30/16 Family History Father Aortic aneurysm Brother Coronary heart disease Sudden cardiac arrest Sister History of colon cancer Colorectal cancer Denies family history of Ovarian cancer Prostate cancer Diabetes Depression Myocardial infarction Breast cancer Lung cancer Social History Smoking Status: Former smoker Age Started Using Tobacco: 16; Age Quit Using Tobacco: 25; Second Hand Exposure: No; Do You Dip or Chew Tobacco: No; Hx Alcohol Use: No Hx Substance Use: No Preferred Language: Malawian Communication Ability: Effective Visual Impairment: No Limitations Hearing Ability: Hard of Hearing 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 NAD. Cooperative. HEENT: Atraumatic, normocephalic. Vision/hearing grossly intact Pulm: CTAB A&P. -wheezes, -rales, -rhonchi. Symmetrical chest rise. No increased work of breathing. No respiratory distress. Cardiac: irir, -mrg. Radial pulses intact and symmetrical. Abdominal: Suprapubic tenderness to palpation which causes the urge to void. Abdomen otherwise nontender. No rebound tenderness. No guarding. Extremities: Moves all extremities equally. Equipment Engineer strength 5/5, ankle dorsiflexion/plantarflexion 5/5. Sensation of soft touch intact in hands and feet, somewhat less in the feet than hands but symmetrical. PT pulse intact bilaterally Results & Data Results & Data Vital Signs (Past 12 Hours) Vital Signs Temp Pulse Resp BP Pulse Ox O2 Del Method 09/13/22 10:51 102 H 18 140/89 09/13/22 10:04 101 H 23 09/13/22 10:13 116 H 09/13/22 09:12 80 14 94 Room Air 09/13/22 09:00 36.4 C L 80 14 146/75 H 94 Room Air PG Care Time/CCT Total # of Minutes Spent Total Time Spent with Patient: Total time spent is greater than 50% in coordination of care (as documented) at patient's floor/unit and/or counseling patient: Coding Level of Care Code 39619 INT INP/OBS CARE 3/75MIN Diagnoses Abdominal pain R10.9 Hyponatremia E87.1 History of AAA (abdominal aortic aneurysm) repair Z98.890 Interstitial lung disease J84.9 Bladder cancer C67.9 Cervical radiculopathy M54.12 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
--- NOTE | 2022-09-13 12:25 | CT Scan Report ---
CT abd pelvis IV con only CLINICAL HISTORY: abd pain TECHNIQUE: Helical axial images of the abdomen and pelvis were obtained and displayed. Automated dose lowering techniques and/or adjustment according to patient size were utilized for this exam. This e xam was performed with intravenous contrast. CT DOSE: 832.16 mGy.cm COMPARISON: Comparison is made to CT chest 06/18/2021 FINDINGS: Lower chest: Bilateral lower lung fibrotic changes are seen. Cardiomegaly is seen. Liver: Nodular contour of the liver is seen compatible with cirrhosis. Gallbladder and biliary tree: The gallbladder is contracted. No intra- or extrahepatic biliary ductal dilation. Pancreas: Unremarkable, no focal lesions. Spleen: Unremarkable. Adrenals: Unremarkable. Kidneys and ureters: Unremarkable. Bladder: Unremarkable. Reproductive organs: Prostatomegaly is seen. Bowel: The appendix is normal. Lymph nodes Retroperitoneal: Paraesophageal lymph node is seen measuring up to 11 mm. Additional subcentimeter no shweta are seen. Pelvic: Unremarkable. Mesenteric: Unremarkable. Peritoneum: Normal. Vessels: Atherosclerotic calcifications are seen. There is a infrarenal aortic aneurysm stent with an aortobiiliac stent. This measures up to 54 mm, enlarged from prior exam where it measured 51 mm. The re is an endoleak, likely type II from an anterior branch vessel. Abdominal wall: Unremarkable. Bones: Degenerative changes in the visualized spine. IMPRESSION: 1. Interval mild enlargement of infrarenal aortic aneurysm with a type II endoleak noted. Otherwise no acute abnormalities. 2. Redemonstration of interstitial lung disease. 3. Cardiomegaly. ACT 112: Negative or not required by law. Electronically signed by: Gary Sarah M.D. 09/13/2022 12:23 PM
[2022-09-13] MEDS ORDERED: GLUCOSE 10 TAB/TUBE PO PRN (12:58)
[2022-09-13] MEDS ORDERED: GLUCAGON FOR INJ 1 MG VIAL SQ PRN (12:58)
[2022-09-13] MEDS ORDERED: DEXTROSE 50% 50 ML SYRINGE IV PRN (12:58)
[2022-09-13] MEDS ORDERED: MAGNESIUM OXIDE 400 MG TAB PO ONE (12:58)
[2022-09-13] MEDS ORDERED: CARBOHYDRATES FOR HYPOGLYCEMIA PO PRN (12:58)
[2022-09-13] MEDS ORDERED: MAGNESIUM SULFATE / D5W 1 GM/100 ML BAG IV ONE (12:58)
[2022-09-13] MEDS ORDERED: GLUCOSE 40% GEL 15 GM TUBE PO PRN (12:58)
[2022-09-13 14:24] LABS: Appearance Urine Clear (Clear); Bacteria Urine Automated Negative (Negative); Bilirubin Urine Negative (Negative); Blood Urine 1+ (Negative); Cast Urine Automated 0 /lpf (0-5); Color Urine Yellow; Epithelial Cell Urine Auto 0-5 /lpf (0-5); Glucose Urine UA Negative (Negative); Ketones Urine Negative (Negative); Leukocyte Esterase Urine Negative (Negative); Nitrite Urine Negative (Negative); Protein Urine Negative (Negative); Specific Gravity Urine 1.023 (1.000-1.030); Urobilinogen Urine Negative (Negative)
[2022-09-13] MEDS ORDERED: DOCUSATE SODIUM/SENNA 50/8.6MG TAB PO PRN (14:49)
[2022-09-13] MEDS ORDERED: POLYETHYLENE (MIRALAX) 17 GM PACK PO PRN (14:49)
[2022-09-13] MEDS ORDERED: MAGNESIUM HYDROXIDE SUSP 30 ML UDC PO PRN (14:49)
[2022-09-13] MEDS ORDERED: LEVALBUTEROL TARTRATE 15 GM HFA.AER.AD INH PRN (14:49)
[2022-09-13] MEDS: METOPROLOL SUCC 50MG EXT REL TAB PO SCH (15:23)
[2022-09-13] MEDS: DIGOXIN 0.125 MG TAB PO SCH (15:24)
[2022-09-13] MEDS: LOSARTAN POTASSIUM 50 MG TAB PO SCH (15:24)
[2022-09-13] MEDS: APIXABAN 5 MG TABLET PO SCH ×2 (15:25→20:39)
[2022-09-13 15:49] LABS: BUN Creatinine Ratio 16.9 (10-20); Calcium 8.8 mg/dl (8.6-10.3); Creatinine Clr Calc Pharmacy 61.9 ml/min; Est GFR (African American) 92.3 ml/min; Est GFR (Non-African American) 79.6 ml/min; Potassium 4.6 mmol/L (3.5-5.1)
[2022-09-13] MEDS: INSULIN ASPART PER UNIT CHARGE SC SCH ×2 (17:03→21:06)
[2022-09-13 19:43] LABS: BUN Creatinine Ratio 15.4 (10-20); Calcium 8.7 mg/dl (8.6-10.3); Est GFR (African American) 77.1 ml/min; Est GFR (Non-African American) 66.6 ml/min; Potassium 4.4 mmol/L (3.5-5.1)
[2022-09-13] MEDS: MELATONIN 3 MG TAB PO PRN (20:39)
[2022-09-13] MEDS: ACETAMINOPHEN 325 MG TAB PO PRN (20:40)
[2022-09-13] MEDS: LANTUS PER UNIT CHARGE SQ SCH (20:46)
[2022-09-13 23:14] LABS: BUN Creatinine Ratio 18.1 (10-20); Calcium 8.7 mg/dl (8.6-10.3); Creatinine Clr Calc Pharmacy 58.6 ml/min; Est GFR (African American) 87.2 ml/min; Est GFR (Non-African American) 75.2 ml/min; Potassium 4.6 mmol/L (3.5-5.1)
[2022-09-14] MEDS: SODIUM CHLORIDE 1 GM TABLET PO SCH ×3 (00:48→20:20)
[2022-09-14 04:56] LABS: Basophils # (auto) 0.04 K/uL (0-0.2); Basophils % (auto) 0.8 %; Eosinophils # (auto) 0.14 K/uL (0-0.50); Eosinophils % (auto) 2.6 %; Hematocrit (blood only) 37.3 % (42.0-52.0); Hemoglobin 13.3 g/dl (14.0-18.0); Immature Granulocytes # (auto) 0.01 K/uL (0.01-0.20); Immature Granulocytes % (auto) 0.2 %; Lymphocytes # (auto) 1.44 K/uL (1.2-3.4); Lymphocytes % (auto) 27.2 %; Mean Corpuscular Hgb Conc 35.7 g/dL (32.0-36.0); Mean Corpuscular Volume 86.9 fL (80.0-100.0); Mean Platelet Volume 9.5 fL (9.4-12.4); Monocytes # (auto) 0.51 K/uL (0.11-0.59); Monocytes % (auto) 9.6 %; Neutrophils # (auto) 3.15 K/uL (1.40-6.50); Neutrophils % (auto) 59.6 %; Platelet Count 163 K/uL (130-400); RDW Coefficient of Variation 11.9 % (11.5-14.5); RDW Standard Deviation 37.7 fL (36.4-46.3); Red Blood Count 4.29 M/uL (4.70-6.10); White Blood Count 5.29 K/ul (4.8-10.8)
[2022-09-14 05:12] LABS: BUN Creatinine Ratio 15.2 (10-20); Calcium 8.9 mg/dl (8.6-10.3); Creatinine Clr Calc Pharmacy 55.7 ml/min; Est GFR (African American) 81.9 ml/min; Est GFR (Non-African American) 70.6 ml/min; Magnesium 1.8 mg/dl (1.7-2.4); Potassium 4.6 mmol/L (3.5-5.1)
[2022-09-14] MEDS: LEVOTHYROXINE SODIUM 112 MCG TABLET PO SCH (05:34)
[2022-09-14] MEDS: INSULIN ASPART PER UNIT CHARGE SC SCH ×4 (07:51→20:26)
[2022-09-14] MEDS: VERAPAMIL HCL 180 MG TABCR PO SCH (07:52)
[2022-09-14] MEDS: CHOLECALCIFEROL 1,000 UNITS 25 MCG TAB PO SCH (07:52)
[2022-09-14] MEDS: LANTUS PER UNIT CHARGE SQ SCH (07:52)
[2022-09-14] MEDS: METOPROLOL SUCC 50MG EXT REL TAB PO SCH (07:52)
[2022-09-14] MEDS: CETIRIZINE HCL 10 MG TABLET PO SCH (07:52)
[2022-09-14] MEDS: LOSARTAN POTASSIUM 50 MG TAB PO SCH (07:53)
[2022-09-14] MEDS: ASPIRIN 81 MG ECTAB PO SCH (07:53)
[2022-09-14] MEDS: DIGOXIN 0.125 MG TAB PO SCH (07:53)
[2022-09-14] MEDS: APIXABAN 5 MG TABLET PO SCH ×2 (07:53→20:20)
[2022-09-14] MEDS ORDERED: ALUMINUM/MAGNESIUM SUSP 30 ML UDC PO PRN (08:57)
[2022-09-14] MEDS: PANTOprazole 40 MG TAB PO SCH (09:56)
[2022-09-14] MEDS: MAGNESIUM OXIDE 400 MG TAB PO SCH (09:56)
[2022-09-14 13:43] LABS: C Reactive Protein 1.3 mg/dl (0-0.5); Uric Acid 2.5 mg/dl (2.6-7.2)
[2022-09-14] MEDS ORDERED: MINERAL OIL ENEMA 133 ML BTL PR PRN (14:38)
[2022-09-14] MEDS ORDERED: bisacodyL 10 MG SUPP PR STA (14:38)
--- NOTE | 2022-09-14 14:40 | Hospitalist Progress Note ---
Date of Service September 14, 2022 Assessment & Plan (1) Abdominal pain: Plan: pain improved today CT a/p with no acute findings (see #3 below regarding AAA) admission u/a, LFTs and lipase all wnl he has been constipated for some time - at least 5-7 days - with minimal bowel movement during that time period will give dulcolax suppos NOW if no results then mineral oil enema start miralax/colace/senna if no results with any of the above then miralax "prep" vs golytely vs other (2) Hyponatremia: Plan: acute/chronic acutely - 121/122 since arrival to [facility] today 123 appears euvolemic vs slightly on dry side urine osm > serum osm urine Na is 79 uric acid level is low 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 This measures up to 54 mm, enlarged from prior exam where it measured 51 mm. There is an endoleak, likely type II from an anterior branch vessel." 07/21/22 - [facility] with [facility] aneurysm sac 5.9cm; that study showed a KNOWN type 2 endoleak documentation from the vascular surgery clinic from the same date stated they would continue to simply monitor the endoleak every 6 months given that he aneurysm sac has not grown in size (appears to be smaller on this admission's study) no acute Rx needed (4) Interstitial lung disease: Plan: chronic follows with Dr Adrian walsh in [place] at this time (5) Bladder cancer: Plan: noted h/o TURBT for such u/a this admission wnl; not suspicious for UTI (6) 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: Plan: last a1c 6.1% earlier this year is only on metformin at home BSGs very well controlled while here loose novolog SSI (7) Hypothyroidism: Plan: TSH 3.5 cont synthroid (8) Atrial fibrillation with rapid ventricular response: Plan: permanent a.fib cont eliquis cont metoprolol cont digoxin (level is therapeutic) cont verapamil rates were mildly high upon presentation, now <100 (9) HTN (hypertension): Plan: controlled (10) Depression: Plan: patient's lack of appetite, irritability, poor sleep, etc are all suggestive of depression we discussed Rx for such 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 consider REMERON 7.5mg HS - this will help sleep & appetite very low risk of SIADH with this medication [id number] would correct the Na levels first then consider starting later in the stay (11) Hypomagnesemia: Plan: level 1.5 at presentation - now replaced and resolved Plan DVT proph - Tamera will need PT/OT while here updated at bedside Admission and Anticipated Discharge Date Admission Date: September 13, 2022 Subjective patient resting comfortably in bed during the visit arrived shortly after I began my visit patient stated he wanted to go home and couldn't understand why he wasn't allowed to leave today we discussed his chronic hyponatremia and that it was acutely worse he reports recent issues with being "irritable" he admits to feeling depressed admits to frequent night-time awakening and not sleeping well doesn't enjoy things any more - he is upset that he can't do things any longer because of his chronic lung problems reports poor appetite chronically his abd pain is improved today but he has not had a normal BM in 5+ days voiding ok per staff -- PVRs <100cc tele overnight wnl Review of Systems Review of Systems: pulm - chronic cough, no worse than baseline; baseline NUNEZ CV - no orthopnea, no chest pain GI - pain improved, but no bowel movement today, and last good BM was last week Physical Exam Physical Exam: gen - NAD mouth - MM slightly dry, but he states his MM are always dry neck - no JVD heart - irregularly irregular, s1 s2 lungs - b/l dry, fine rales about 1/2 [address] up back abd - firm in the upper abdomen, BS+, NT, no HSM ext - no edema, pulses 2+ b/l psych - restricted affect Results & Data Results & Data Vital Signs (Past 12 Hours) Vital Signs Temp Pulse Pulse Resp BP Pulse Ox Pulse Ox 09/14/22 08:00 97 09/14/22 08:00 09/14/22 08:00 94 H 06/12/23 07:00 36.9 C 82 20 120/59 L 92 09/14/22 07:53 94 H 09/14/22 04:57 36.5 C 85 22 119/77 94 O2 Del Method O2 Del Method 09/14/22 08:00 Room Air 09/14/22 08:00 Room Air 09/14/22 08:00 09/14/22 07:00 Room Air 09/14/22 07:53 09/14/22 04:57 Room Air Laboratory Results Laboratory Results - last 24 hr 09/13/22 09/13/22 09/13/22 09:25 09:25 14:42 WBC RBC Hgb Hct MCV MCH MCHC RDW Std Deviation RDW Coeff of Shazia Plt Count MPV Immature Gran % (Auto) Neut % (Auto) Lymph % (Auto) [place] % (Auto) Eos % (Auto) Baso % (Auto) Neut # (Auto) Lymph # (Auto) [place] # (Auto) Eos # (Auto) Baso # (Auto) Immature Gran # (Auto) Sodium Potassium Chloride Carbon Dioxide Anion Gap BUN Creatinine Est Cr Clr Drug Dosing Est GFR ( Amer) Est GFR (Non-Af Amer) BUN/Creatinine Ratio Glucose POC Glucose 126 H Osmolality 268 L Uric Acid Calcium Magnesium C-Reactive Protein TSH 3.556 Random Cortisol Urine Osmolality Ur Random Sodium Digoxin 09/13/22 09/13/22 09/13/22 14:55 14:55 16:24 WBC RBC Hgb Hct MCV MCH MCHC RDW Std Deviation RDW Coeff of Shazia Plt Count MPV Immature Gran % (Auto) Neut % (Auto) Lymph % (Auto) [place] % (Auto) Eos % (Auto) Baso % (Auto) Neut # (Auto) Lymph # (Auto) [place] # (Auto) Eos # (Auto) Baso # (Auto) Immature Gran # (Auto) Sodium 121 L Potassium 4.6 Chloride 84 L Carbon Dioxide 30 Anion Gap 7 BUN 15 Creatinine 0.89 Est Cr Clr Drug Dosing 61.9 Est GFR ( Amer) 92.3 Est GFR (Non-Af Amer) 79.6 BUN/Creatinine Ratio 16.9 Glucose 121 H POC Glucose 167 H Osmolality Uric Acid Calcium 8.8 Magnesium C-Reactive Protein TSH Random Cortisol Urine Osmolality Ur Random Sodium Digoxin 1.0 09/13/22 09/13/22 09/13/22 17:00 17:00 18:56 WBC RBC Hgb Hct MCV MCH MCHC RDW Std Deviation RDW Coeff of Shazia Plt Count MPV Immature Gran % (Auto) Neut % (Auto) Lymph % (Auto) [place] % (Auto) Eos % (Auto) Baso % (Auto) Neut # (Auto) Lymph # (Auto) [place] # (Auto) Eos # (Auto) Baso # (Auto) Immature Gran # (Auto) Sodium 121 L Potassium 4.4 Chloride 85 L Carbon Dioxide 32 Anion Gap 4 BUN 16 Creatinine 1.04 Est Cr Clr Drug Dosing 53.0 Est GFR ( Amer) 77.1 Est GFR (Non-Af Amer) 66.6 BUN/Creatinine Ratio 15.4 Glucose 142 H POC Glucose Osmolality Uric Acid Calcium 8.7 Magnesium C-Reactive Protein TSH Random Cortisol Urine Osmolality 359 L Ur Random Sodium 79 Digoxin 09/13/22 09/13/22 09/14/22 20:16 22:39 04:42 WBC 5.29 RBC 4.29 L Hgb 13.3 L Hct 37.3 L MCV 86.9 MCH 31.0 MCHC 35.7 RDW Std Deviation 37.7 RDW Coeff of Shazia 11.9 Plt Count 163 MPV 9.5 Immature Gran % (Auto) 0.2 Neut % (Auto) 59.6 Lymph % (Auto) 27.2 [place] % (Auto) 9.6 Eos % (Auto) 2.6 Baso % (Auto) 0.8 Neut # (Auto) 3.15 Lymph # (Auto) 1.44 [place] # (Auto) 0.51 Eos # (Auto) 0.14 Baso # (Auto) 0.04 Immature Gran # (Auto) 0.01 Sodium 122 L Potassium 4.6 Chloride 87 L Carbon Dioxide 32 Anion Gap 3 BUN 17 Creatinine 0.94 Est Cr Clr Drug Dosing 58.6 Est GFR ( Amer) 87.2 Est GFR (Non-Af Amer) 75.2 BUN/Creatinine Ratio 18.1 Glucose 89 POC Glucose 103 H Osmolality Uric Acid Calcium 8.7 Magnesium C-Reactive Protein TSH Random Cortisol Urine Osmolality Ur Random Sodium Digoxin 09/14/22 09/14/22 09/14/22 04:42 07:28 10:57 WBC RBC Hgb Hct MCV MCH MCHC RDW Std Deviation RDW Coeff of Shazia Plt Count MPV Immature Gran % (Auto) Neut % (Auto) Lymph % (Auto) [place] % (Auto) Eos % (Auto) Baso % (Auto) Neut # (Auto) Lymph # (Auto) [place] # (Auto) Eos # (Auto) Baso # (Auto) Immature Gran # (Auto) Sodium 123 L Potassium 4.6 Chloride 87 L Carbon Dioxide 32 Anion Gap 4 BUN 15 Creatinine 0.99 Est Cr Clr Drug Dosing 55.7 Est GFR ( Amer) 81.9 Est GFR (Non-Af Amer) 70.6 BUN/Creatinine Ratio 15.2 Glucose 86 POC Glucose 86 115 H Osmolality Uric Acid Calcium 8.9 Magnesium 1.8 C-Reactive Protein TSH Random Cortisol Urine Osmolality Ur Random Sodium Digoxin 09/14/22 09/14/22 12:50 12:50 WBC RBC Hgb Hct MCV MCH MCHC RDW Std Deviation RDW Coeff of Shazia Plt Count MPV Immature Gran % (Auto) Neut % (Auto) Lymph % (Auto) [place] % (Auto) Eos % (Auto) Baso % (Auto) Neut # (Auto) Lymph # (Auto) [place] # (Auto) Eos # (Auto) Baso # (Auto) Immature Gran # (Auto) Sodium 123 L Potassium Chloride Carbon Dioxide Anion Gap BUN Creatinine Est Cr Clr Drug Dosing Est GFR ( Amer) Est GFR (Non-Af Amer) BUN/Creatinine Ratio Glucose POC Glucose Osmolality Uric Acid 2.5 L Calcium Magnesium C-Reactive Protein 1.30 H TSH Random Cortisol 17.63 Urine Osmolality Ur Random Sodium Digoxin PG Care Time/CCT Total # of Minutes Spent Total Time Spent with Patient: Total time spent is greater than 50% in coordination of care (as documented) at patient's floor/unit and/or counseling patient: Coding Level of Care Code 84804 SUB INP/OBS CARE 3/50MIN Diagnoses Abdominal pain R10.9 Hyponatremia E87.1 History of AAA (abdominal aortic aneurysm) repair Z98.890 Interstitial lung disease J84.9 Bladder cancer C67.9 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 Depression F32.A Hypomagnesemia E83.42
[2022-09-14] MEDS ORDERED: SODIUM CHLORIDE 1 GM TABLET PO STA (17:17)
--- NOTE | 2022-09-14 18:09 | Electrocardiogram Report ---
Test Reason : Blood Pressure : / mmHG Vent. Rate : 116 BPM Atrial Rate : 000 BPM P-R Int : 000 ms QRS Dur : 086 ms QT Int : 318 ms P-R-T Axes : 000 -34 131 degrees QTc Int : 442 ms Atrial fibrillation with rapid ventricular response with premature ventricular or aberrantly conducte d complexes Left axis deviation Poor R wave progression, consider anterior PR vs. lead placement vs. LVH Abnormal ECG When compared with ECG of 04-MAR-2022 18:39, Atrial fibrillation has replaced Electronic ventricular pacemaker Confirmed by Shaw Kang ([id number] on 09/14/2022 6:08:57 PM Referred By: REFERRED SELF Confirmed By:Derek Kang
[2022-09-14] MEDS ORDERED: LANTUS PER UNIT CHARGE SQ ONE (20:30)
[2022-09-14] MEDS: MELATONIN 3 MG TAB PO PRN (23:44)
[2022-09-15] MEDS: LEVOTHYROXINE SODIUM 112 MCG TABLET PO SCH (05:47)
[2022-09-15 06:38] LABS: Basophils # (auto) 0.02 K/uL (0-0.2); Basophils % (auto) 0.3 %; Eosinophils # (auto) 0.11 K/uL (0-0.50); Eosinophils % (auto) 1.5 %; Hematocrit (blood only) 36.3 % (42.0-52.0); Hemoglobin 12.8 g/dl (14.0-18.0); Immature Granulocytes # (auto) 0.01 K/uL (0.01-0.20); Immature Granulocytes % (auto) 0.1 %; Lymphocytes # (auto) 1.51 K/uL (1.2-3.4); Mean Corpuscular Hemoglobin 30.8 pg (25.0-34.0); Mean Corpuscular Hgb Conc 35.3 g/dL (32.0-36.0); Mean Corpuscular Volume 87.3 fL (80.0-100.0); Mean Platelet Volume 9.9 fL (9.4-12.4); Monocytes # (auto) 0.74 K/uL (0.11-0.59); Monocytes % (auto) 9.8 %; Neutrophils # (auto) 5.17 K/uL (1.40-6.50); Neutrophils % (auto) 68.3 %; Platelet Count 142 K/uL (130-400); RDW Coefficient of Variation 11.8 % (11.5-14.5); RDW Standard Deviation 37.8 fL (36.4-46.3); Red Blood Count 4.16 M/uL (4.70-6.10); White Blood Count 7.56 K/ul (4.8-10.8)
[2022-09-15 06:50] LABS: Calcium 8.9 mg/dl (8.6-10.3); Creatinine Clr Calc Pharmacy 55.1 ml/min; Est GFR (African American) 80.9 ml/min; Est GFR (Non-African American) 69.8 ml/min; Potassium 4.3 mmol/L (3.5-5.1)
[2022-09-15] MEDS: VERAPAMIL HCL 180 MG TABCR PO SCH (07:51)
[2022-09-15] MEDS: DOCUSATE SODIUM/SENNA 50/8.6MG TAB PO SCH (07:52)
[2022-09-15] MEDS: APIXABAN 5 MG TABLET PO SCH ×2 (07:52→20:23)
[2022-09-15] MEDS: PANTOprazole 40 MG TAB PO SCH (07:52)
[2022-09-15] MEDS: METOPROLOL SUCC 50MG EXT REL TAB PO SCH (07:52)
[2022-09-15] MEDS: POLYETHYLENE (MIRALAX) 17 GM PACK PO SCH ×2 (07:52→20:23)
[2022-09-15] MEDS: DIGOXIN 0.125 MG TAB PO SCH (07:52)
[2022-09-15] MEDS: ASPIRIN 81 MG ECTAB PO SCH (07:53)
[2022-09-15] MEDS: CETIRIZINE HCL 10 MG TABLET PO SCH (07:53)
[2022-09-15] MEDS: CHOLECALCIFEROL 1,000 UNITS 25 MCG TAB PO SCH (07:53)
[2022-09-15] MEDS: LOSARTAN POTASSIUM 50 MG TAB PO SCH (07:53)
[2022-09-15] MEDS: INSULIN ASPART PER UNIT CHARGE SC SCH ×4 (08:01→20:18)
--- NOTE | 2022-09-15 08:41 | Nephrology Consultation ---
Date of Consultation September 15, 2022 Assessment & Plan (1) Acute hyponatremia: * Hypoosmolar hyponatremia * Patient is clinically volume contracted to euvolemic * TSH, Cortisol - WNL * Preserved kidney function * Elevated Uosm suggestive of ADH effect possibly related to abdominal discomfort * Serum sodium is correcting at appropriate rate w/ oral NaCl tablets * Continue NaCl 1g po BID * Monitor PRP, Uosm (2) Abdominal pain: * Improved this morning * Patient reports constipation * 09/14/[address] shows aortobifemoral stent w/ endoleak. This has been stable compared to recent study completed for vascular surgery at [place] History of Present Illness Reason for Consultation: Hyponatremia Attending Physician: Adrianna Evans MD History of Present Illness Mr. Stephenson is an 82 year old white male who is seen at the request of the [facility] for evaluation of hyponatremia. The patient can provide only limited history. Information for the HPI is obtained from review of the EMR and is summarized as follows: Mr. Stephenson has a documented h/o HTN, atrial fibrillation, hypothyroidism, AODM, bladder cancer s/p TURBT, IPF, and AAA s/p EVAR 08/24. He has no prior history of hyponatremia, CKD or adrenal insufficiency. Mr. Stephenson presented to the [facility] 09/14/22 for evaluation of abdominal discomfort. Abdominal CT w/ contrast revealed an AAA w/ aortobifemoral stent and stable 5 cm endoleak. He reported several day h/o constipation and poor oral intake. Admission serum Na was 122 mmol/L. 1 L NS IV was administered in the EMD. Mr. Stephenson was subsequently admitted and started on NaCl 1g po BID. Serum Na this morning has improved to 127 mmol/L. Patient indicates that he is tolerating oral NaCl without GI upset. TSH and cortisol were checked upon admission and found to be WNL. Allergies Allergy/AdvReac Type Severity Reaction Status Date / Time simvastatin Allergy Intermediate RASH, Verified 08/10/22 08:00 ITCHING Penicillins Allergy Unknown DOESN'T Verified 08/10/22 08:00 KNOW nintedanib AdvReac Intermediate sickto Verified 08/10/22 08:00 stomach tadalafil AdvReac Intermediate RUNNY Verified 08/10/22 08:00 NOSE, ACHINESS atorvastatin AdvReac Mild MUSCLE Verified 08/10/22 08:00 ACHES dulaglutide [From [facility]] AdvReac Nausea Verified 08/10/22 08:00 Home Medications Medication Instructions Recorded Confirmed Type aspirin 81 mg tablet,delayed 81 mg PO DAILY 10/14/18 08/10/22 History release cholecalciferol (vitamin D3) 50 2,000 units PO DAILY 10/14/18 08/10/22 History mcg (2,000 unit) tablet lancets 33 gauge (OneTouch Delica #100 ea 10/14/18 08/10/22 Rx Lancets) magnesium oxide 400 mg (241.3 mg 400 mg PO DAILY 10/14/18 08/10/22 History magnesium) tablet omega-3 acid ethyl esters 1 gram 2 cap PO DAILY 10/14/18 08/10/22 History capsule omeprazole 20 mg capsule,delayed 20 mg PO DAILY #90 caps 05/15/21 09/13/22 Rx release levothyroxine 112 mcg tablet See Rx Instructions .Route 11/03/21 09/13/22 Rx .COMPLEX #90 tabs cetirizine 10 mg tablet 10 mg PO DAILY 12/01/21 08/10/22 History docusate sodium [Stool Softener] PO 12/01/21 08/10/22 History apixaban 5 mg tablet 5 mg PO BID #180 tabs 05/13/22 09/13/22 Rx digoxin 125 mcg (0.125 mg) tablet 125 mcg PO DAILY #90 tabs 05/13/22 09/13/22 Rx metformin 500 mg tablet 1,000 mg PO .COMPLEX #270 tabs 05/13/22 09/13/22 Rx olmesartan 20 mg tablet 20 mg PO DAILY #90 tabs 06/02/22 09/13/22 Rx metoprolol succinate 200 mg See Rx Instructions .Route 06/12/22 09/13/22 Rx tablet,extended release 24 hr .COMPLEX #30 tabs verapamil 180 mg tablet,extended 180 mg PO DAILY #90 tabs 06/12/22 09/13/22 Rx release levalbuterol tartrate 45 2 inh inhalation Q6H PRN shortness 07/09/22 09/13/22 Rx mcg/actuation aerosol inhaler of breath #15 grams ondansetron HCl 8 mg tablet 8 mg PO Q12H PRN nausea #60 tabs 07/09/22 09/13/22 Rx rosuvastatin 5 mg tablet 5 mg PO .COMPLEX #15 tabs 07/21/22 09/13/22 Rx blood sugar diagnostic (OneTouch #100 ea 08/24/22 Rx Ultra Test strips) albuterol sulfate 0.63 mg/3 mL 0.63 mg inhalation Q6H PRN Wheezing 09/13/22 09/13/22 History solution for nebulization ipratropium bromide 0.02 % 2.5 ml inhalation Q6H PRN Wheezing 09/13/22 09/13/22 History solution for inhalation Patient History Medical History Acid reflux disease Anticoagulant long-term use Arteriosclerotic cardiovascular disease Biceps muscle tear Biceps tendon rupture Bladder cancer 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, uncontrolled Dyslipidemia Erythema migrans (Lyme disease) Gastritis History of squamous cell carcinoma of skin Hypothyroidism Onychomycosis Permanent atrial fibrillation Thrombocytopenia Tubular adenoma of colon (11/10/13) Vitamin D deficiency Surgical History History of AAA (abdominal aortic aneurysm) repair History of bladder surgery "scraped" for bladder cancer History of colonoscopy with polypectomy (11/10/13) tubular adenoma History of inguinal hernia repair History of permanent cardiac pacemaker placement History of sinus surgery Hx of tonsillectomy S/P cataract surgery right - 12/16/16 left 12/30/16 Family History Father Aortic aneurysm Brother Coronary heart disease Sudden cardiac arrest Sister History of colon cancer Colorectal cancer Denies family history of Ovarian cancer Prostate cancer Diabetes Depression Myocardial infarction Breast cancer Lung cancer Social History Smoking Status: Former smoker Age Started Using Tobacco: 16; Age Quit Using Tobacco: 25; Second Hand Exposure: No; Do You Dip or Chew Tobacco: No; Hx Alcohol Use: No Hx Substance Use: No Preferred Language: Omani Communication Ability: Effective Visual Impairment: No Limitations Hearing Ability: Hard of Hearing [employer]er Required: No Beliefs That Will Affect Care: None marital status: Current Living Situation: Spouse current occupational status: retired Feels Safe at Home: Yes Childhood Exposure to Second-Hand Smoke: No Diet: regular caffeine: Yes Dental Care, Regularly: No Physical Activity Frequency: Daily Seatbelt Use: always Sunscreen Use: No Assistive Devices: None Review of Systems Constitutional: no fever Eyes: no problem reported Ear, Nose, Mouth, Throat: no problem reported Respiratory: no cough and no dyspnea Cardiovascular: no chest pain Gastrointestinal: + abdominal pain; no nausea, no vomiting and no diarrhea/loose stools Genitourinary: no dysuria or no urinary hesitancy Physical Exam Constitutional: not in distress Eyes: PERRL, conjunctivae normal, anicteric sclerae ENMT: Mouth: + dry oral mucous membranes Neck: trachea midline, no thyromegaly Respiratory: normal respiratory effort, lungs clear to auscultation Cardiovascular: RRR, no murmur, no edema Gastrointestinal (Abdomen): normal bowel sounds, soft, nontender, no hepatosplenomegaly Neurologic: Speech / Cognition: normal speech and normal cognition Results & Data Vital Signs (Past 12 Hours) Vital Signs Temp Pulse Pulse Resp BP Pulse Ox O2 Del Method 09/15/22 07:52 120 H 09/15/22 07:28 36.5 C 96 H 18 131/67 91 Room Air 09/15/22 03:38 36.6 C 88 18 115/66 92 Room Air 09/14/22 23:37 89 09/14/22 23:33 36.5 C 69 17 144/83 H 91 Room Air 09/14/22 20:59 Room Air Laboratory Results Laboratory Tests 06/12/22 09/13/22 09/13/22 07:36 14:08 17:00 WBC Hgb Hct Plt Count Sodium Potassium Chloride Carbon Dioxide BUN Creatinine Est GFR (Non-Af Amer) Glucose Calcium Random Cortisol Urine Color Yellow Urine pH 8.0 H Ur Specific [place] 1.023 Urine Protein Negative Urine Glucose (UA) Negative Urine Blood 1+ H Urine RBC (Auto) 5-10 H Urine Osmolality 359 L Ur Random Microalbumin 56.5 Microalb/Creat Ratio 109.4 H 09/13/22 09/14/22 09/14/22 18:56 04:42 12:50 WBC Hgb Hct Plt Count Sodium 121 L 123 L Potassium Chloride Carbon Dioxide BUN Creatinine Est GFR (Non-Af Amer) Glucose Calcium Random Cortisol 17.63 Urine Color Urine pH Ur Specific [place] Urine Protein Urine Glucose (UA) Urine Blood Urine RBC (Auto) Urine Osmolality Ur Random Microalbumin Microalb/Creat Ratio 09/15/22 09/15/22 05:40 05:40 WBC 7.56 Hgb 12.8 L Hct 36.3 L Plt Count 142 Sodium 127 L Potassium 4.3 Chloride 88 L Carbon Dioxide 33 H BUN 14 Creatinine 1.00 Est GFR (Non-Af Amer) 69.8 Glucose 59 L Calcium 8.9 Random Cortisol Urine Color Urine pH Ur Specific [place] Urine Protein Urine Glucose (UA) Urine Blood Urine RBC (Auto) Urine Osmolality Ur Random Microalbumin Microalb/Creat Ratio PG Care Time/CCT Total # of Minutes Spent Total Time Spent with Patient: Total time spent is greater than 50% in coordination of care (as documented) at patient's floor/unit and/or counseling patient: Coding Level of Care Code 08825 IN/OBS CONSULT LVL 5,80M Diagnoses Acute hyponatremia E87.1 Abdominal pain R10.9
[2022-09-15] MEDS: LANTUS PER UNIT CHARGE SQ SCH ×2 (08:50→20:21)
[2022-09-15] MEDS: MAGNESIUM OXIDE 400 MG TAB PO SCH (09:14)
[2022-09-15] MEDS: SENNA 8.6 MG TAB PO SCH (09:15)
[2022-09-15] MEDS: SODIUM CHLORIDE 1 GM TABLET PO SCH ×2 (09:16→20:23)
[2022-09-15] MEDS: ACETAMINOPHEN 325 MG TAB PO PRN (09:20)
[2022-09-15 13:29] LABS: BUN Creatinine Ratio 16.9 (10-20); Calcium 8.7 mg/dl (8.6-10.3); Creatinine Clr Calc Pharmacy 44.4 ml/min; Est GFR (African American) 62.4 ml/min; Est GFR (Non-African American) 53.8 ml/min; Potassium 4.9 mmol/L (3.5-5.1)
--- NOTE | 2022-09-15 14:46 | Hospitalist Progress Note ---
Date of Service September 15, 2022 Assessment & Plan (1) Abdominal pain: Plan: Resolved, although said he has not had a bowel movement despite dulcolax Continue Dulcolax and Miralax May need golytely if still unable to CT a/p with no acute findings (2) Hyponatremia: Plan: acute/chronic acutely - 121/122 since arrival to [facility] today 123 appears euvolemic vs slightly on dry side urine osm > serum osm urine Na is 79 uric acid level is low Nephrology on consult, appreciate recs (3) History of AAA (abdominal aortic aneurysm) repair: Plan: s[facility] a/p this admission with -- "There is a infrarenal aortic aneurysm stent with an aortobiiliac stent. This measures up to 54 mm, enlarged from prior exam where it measured 51 mm. There is an endoleak, likely type II from an anterior branch vessel." 07/21/22 - had CTA at [facility] with aortic aneurysm sac 5.9cm; that study showed a KNOWN type 2 endoleak documentation from the vascular surgery clinic from the same date stated they would continue to simply monitor the endoleak every 6 months given that he aneurysm sac has not grown in size (appears to be smaller on this admission's study) no acute Rx needed (4) Interstitial lung disease: Plan: chronic follows with Dr Adrian walsh in [place] at this time Patient did not tolerate OFEV has outpatient appointment on 09/23 (5) Bladder cancer: Plan: noted h/o TURBT for such u/a this admission wnl; not suspicious for UTI (6) 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: Plan: last a1c 6.1% earlier this year is only on metformin at home BSGs very well controlled while here loose novolog SSI (7) Hypothyroidism: Plan: TSH 3.5 cont synthroid (8) Atrial fibrillation with rapid ventricular response: Plan: permanent a.fib cont eliquis cont metoprolol cont digoxin (level is therapeutic) cont verapamil rates were mildly high upon presentation, now <100 (9) HTN (hypertension): Plan: controlled (10) Depression: Plan: patient's lack of appetite, irritability, poor sleep, etc are all suggestive of depression we discussed Rx for such 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 consider REMERON 7.5mg HS - this will help sleep & appetite very low risk of SIADH with this medication [id number] would correct the Na levels first then consider starting later in the stay (11) Hypomagnesemia: Plan: level 1.5 at presentation - now replaced and resolved Plan DVT proph - Tamera Did not tolerate physical therapy today Admission and Anticipated Discharge Date Admission Date: September 13, 2022 Subjective patient seen and examined,said his abdominal pain has resolved, although has not had a bowel movement even after bowel regimen Review of Systems Review of Systems: All systems reviewed are negative, apart from the ones contained in the history. Physical Exam Physical Exam: The patient is awake, alert and oriented 3, well developed and well nourished, normocephalic and atraumatic, lying in bed and in no acute distress. HEENT--PERRL, EOMI, mucous membranes and oropharynx mildly dry Neck--supple. No JVD. No bruits. Thyroid normal, trachea midline, no adenopathy. Heart--normal S1 and S2. No murmurs, rubs or gallops. Lungs--clear bilaterally, no respiratory distress, no accessory muscle use. Abdomen--normal bowel sounds and soft. Mild epigastric and left sided abdominal pain Extremities--no cyanosis or clubbing. No edema. Dermatologic--normal skin turgor, normal color, no abnormal lymph nodes, no rash. Neurologic--cranial nerves II through XII grossly intact. Rheumatologic--normal range of motion. Psychiatric--normal affect. Results & Data Results & Data Vital Signs (Past 12 Hours) Vital Signs Temp Pulse Pulse Resp BP BP Pulse Ox 09/15/22 11:51 94/56 L 94 09/15/22 11:31 09/15/22 11:10 97.3 F L 52 L 18 94/55 L 90 09/15/22 08:00 120 H 09/15/22 07:52 120 H 09/15/22 07:28 97.7 F 96 H 18 131/67 91 09/15/22 03:38 97.9 F 88 18 115/66 92 Pulse Ox Pulse Ox Pulse Ox O2 Del Method O2 Flow Rate O2 Flow Rate O2 Flow Rate 09/15/22 11:51 Room Air 09/15/22 11:31 90 90 83 L 0 0 0 09/15/22 11:10 Room Air 09/15/22 08:00 06/13/23 07:52 09/15/22 07:28 Room Air 09/15/22 03:38 Room Air PG Care Time/CCT Total # of Minutes Spent Total Time Spent with Patient: Total time spent is greater than 50% in coordination of care (as documented) at patient's floor/unit and/or counseling patient: Coding Level of Care Code 00748 SUB INP/OBS CARE 2/35MIN Diagnoses Abdominal pain R10.9 Hyponatremia E87.1 History of AAA (abdominal aortic aneurysm) repair Z98.890 Interstitial lung disease J84.9 Bladder cancer C67.9 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
[2022-09-15] MEDS ORDERED: SODIUM CHLORIDE 1 GM TABLET PO ONE (16:05)
[2022-09-15] MEDS ORDERED: FLUoxetine HCL 10 MG CAP PO STA (16:37)
[2022-09-15] MEDS: LAVAGE SOLUTION 4000ML PO SCH ×4 (17:18→18:40)
[2022-09-16] MEDS: LEVOTHYROXINE SODIUM 112 MCG TABLET PO SCH (06:11)
[2022-09-16 06:18] LABS: Basophils # (auto) 0.03 K/uL (0-0.2); Basophils % (auto) 0.4 %; Eosinophils % (auto) 1.4 %; Hematocrit (blood only) 35.1 % (42.0-52.0); Hemoglobin 12.2 g/dl (14.0-18.0); Immature Granulocytes # (auto) 0.02 K/uL (0.01-0.20); Immature Granulocytes % (auto) 0.3 %; Lymphocytes % (auto) 30.3 %; Mean Corpuscular Hgb Conc 34.8 g/dL (32.0-36.0); Mean Corpuscular Volume 89.3 fL (80.0-100.0); Mean Platelet Volume 9.5 fL (9.4-12.4); Monocytes # (auto) 0.71 K/uL (0.11-0.59); Monocytes % (auto) 10.3 %; Neutrophils # (auto) 3.96 K/uL (1.40-6.50); Neutrophils % (auto) 57.3 %; Platelet Count 149 K/uL (130-400); RDW Coefficient of Variation 11.9 % (11.5-14.5); RDW Standard Deviation 39.2 fL (36.4-46.3); Red Blood Count 3.93 M/uL (4.70-6.10); White Blood Count 6.92 K/ul (4.8-10.8)
[2022-09-16 06:36] LABS: BUN Creatinine Ratio 15.2 (10-20); Calcium 8.7 mg/dl (8.6-10.3); Creatinine Clr Calc Pharmacy 52.5 ml/min; Est GFR (African American) 76.2 ml/min; Est GFR (Non-African American) 65.8 ml/min; Potassium 4.4 mmol/L (3.5-5.1)
[2022-09-16] MEDS: POLYETHYLENE (MIRALAX) 17 GM PACK PO SCH ×2 (08:15→20:57)
[2022-09-16] MEDS: SENNA 8.6 MG TAB PO SCH (08:15)
[2022-09-16] MEDS: ASPIRIN 81 MG ECTAB PO SCH (08:15)
[2022-09-16] MEDS: DIGOXIN 0.125 MG TAB PO SCH (08:15)
[2022-09-16] MEDS: METOPROLOL SUCC 50MG EXT REL TAB PO SCH (08:15)
[2022-09-16] MEDS: VERAPAMIL HCL 180 MG TABCR PO SCH (08:16)
[2022-09-16] MEDS: MAGNESIUM OXIDE 400 MG TAB PO SCH (08:16)
[2022-09-16] MEDS: CHOLECALCIFEROL 1,000 UNITS 25 MCG TAB PO SCH (08:16)
[2022-09-16] MEDS: CETIRIZINE HCL 10 MG TABLET PO SCH (08:16)
[2022-09-16] MEDS: APIXABAN 5 MG TABLET PO SCH ×2 (08:16→20:58)
[2022-09-16] MEDS: SODIUM CHLORIDE 1 GM TABLET PO SCH ×2 (08:16→20:58)
[2022-09-16] MEDS: FLUoxetine HCL 10 MG CAP PO SCH (08:16)
[2022-09-16] MEDS: DOCUSATE SODIUM/SENNA 50/8.6MG TAB PO SCH (08:16)
[2022-09-16] MEDS: PANTOprazole 40 MG TAB PO SCH (08:16)
[2022-09-16] MEDS: LOSARTAN POTASSIUM 50 MG TAB PO SCH (08:16)
[2022-09-16] MEDS: INSULIN ASPART PER UNIT CHARGE SC SCH ×4 (08:18→20:28)
[2022-09-16] MEDS: LANTUS PER UNIT CHARGE SQ SCH ×2 (08:29→20:56)
[2022-09-16] MEDS ORDERED: SODIUM CHLORIDE 1 GM TABLET PO ONE (08:46)
--- NOTE | 2022-09-16 08:46 | Nephrology Progress Note ---
Date of Service September 16, 2022 Assessment & Plan (1) Acute hyponatremia: Plan: * Hypoosmolar hyponatremia * Patient is clinically volume contracted to euvolemic * TSH, Cortisol - WNL * Preserved kidney function * Elevated Uosm suggestive of ADH effect possibly related to abdominal discomfort * Serum sodium is correcting at appropriate rate w/ oral NaCl tablets * Will increase NaCl to 2g po BID * Monitor PRP, Uosm (2) Abdominal pain: Plan: * Resolved * Patient reports constipation has improved * 09/14/[address] shows aortobifemoral stent w/ endoleak. This has been stable compared to recent study completed for vascular surgery at [place], [place] Admission and Anticipated Discharge Date Admission Date: September 13, 2022 Subjective Mr. Stephenson was evaluated in his hospital room this morning. He reports that his abdominal pain and constipation are resolved. He is tolerating salt tablets without GI upset Review of Systems Constitutional: no fever Eyes: no problem reported Ear, Nose, Mouth, Throat: no problem reported Respiratory: no cough and no dyspnea Cardiovascular: no chest pain Gastrointestinal: no abdominal pain, no nausea, no vomiting and no diarrhea/loose stools Genitourinary: no dysuria or no urinary hesitancy Physical Exam Constitutional: not in distress Eyes: PERRL, conjunctivae normal, anicteric sclerae ENMT: Mouth: + dry oral mucous membranes Neck: trachea midline, no thyromegaly Respiratory: normal respiratory effort, lungs clear to auscultation Cardiovascular: RRR, no murmur, no edema Gastrointestinal (Abdomen): normal bowel sounds, soft, nontender, no hepatosplenomegaly Neurologic: Speech / Cognition: normal speech and normal cognition Results & Data Vital Signs (Past 12 Hours) Vital Signs Temp Pulse Pulse Resp BP Pulse Ox O2 Del Method 09/16/22 08:15 103 H 09/16/22 07:32 36.5 C 103 H 19 133/77 91 Room Air 09/16/22 03:38 36.8 C 97 H 18 103/61 95 Room Air 09/15/22 23:59 36.5 C 72 18 109/69 93 Room Air 09/15/22 23:03 71 Laboratory Results Laboratory Tests 09/16/22 09/16/22 05:43 05:43 WBC 6.92 Hgb 12.2 L Hct 35.1 L Plt Count 149 Sodium 127 L Potassium 4.4 Chloride 89 L Carbon Dioxide 33 H BUN 16 Creatinine 1.05 Est GFR (Non-Af Amer) 65.8 Glucose 71 Calcium 8.7 PG Care Time/CCT Total # of Minutes Spent Total Time Spent with Patient: Total time spent is greater than 50% in coordination of care (as documented) at patient's floor/unit and/or counseling patient: Coding Level of Care Code 27621 SUB INP/OBS CARE 3/50MIN Diagnoses Acute hyponatremia E87.1 Abdominal pain R10.9
[2022-09-16 12:31] LABS: Calcium 8.7 mg/dl (8.6-10.3); Est GFR (African American) 75.4 ml/min; Potassium 4.5 mmol/L (3.5-5.1)
--- NOTE | 2022-09-16 13:36 | Hospitalist Progress Note ---
Date of Service September 16, 2022 Assessment & Plan (1) Abdominal pain: Plan: Now resolved CT a/p with no acute findings (2) Hyponatremia: Plan: acute/chronic acutely - 121/122 since arrival to [facility] today 124 Appears hypovolemic Nephrology on consult, appreciate recs Continue salt tablets (3) History of AAA (abdominal aortic aneurysm) repair: Plan: s/p AAA repair in 2021 [facility] CT a/p this admission with -- "There is a infrarenal aortic aneurysm stent with an aortobiiliac stent. This measures up to 54 mm, enlarged from prior exam where it measured 51 mm. There is an endoleak, likely type II from an anterior branch vessel." 07/21/22 - had CTA at [facility] with aortic aneurysm sac 5.9cm; that study showed a KNOWN type 2 endoleak documentation from the vascular surgery clinic from the same date stated they would continue to simply monitor the endoleak every 6 months given that he aneurysm sac has not grown in size (appears to be smaller on this admission's study) no acute Rx needed (4) Interstitial lung disease: Plan: chronic follows with Dr Adrian walsh in [place] at this time Patient did not tolerate OFEV has outpatient appointment on 09/23 (5) Bladder cancer: Plan: noted h/o TURBT for such u/a this admission wnl; not suspicious for UTI (6) 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: Plan: last a1c 6.1% earlier this year is only on metformin at home BSGs very well controlled while here loose novolog SSI (7) Hypothyroidism: Plan: TSH 3.5 cont synthroid (8) Atrial fibrillation with rapid ventricular response: Plan: permanent a.fib cont eliquis cont metoprolol cont digoxin (level is therapeutic) cont verapamil rates were mildly high upon presentation, now <100 (9) HTN (hypertension): Plan: Low BP, will hold anti HTN for now (10) Depression: Plan: patient's lack of appetite, irritability, poor sleep, etc are all suggestive of depression we discussed Rx for such 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 consider REMERON 7.5mg HS - this will help sleep & appetite very low risk of SIADH with this medication [id number] would correct the Na levels first then consider starting later in the stay (11) Hypomagnesemia: Plan: level 1.5 at presentation - now replaced and resolved (12) Orthostasis: Plan: positive orthostasis Will start Midodrine 5mg TID Plan DVT proph - Tamera Did not tolerate physical therapy today, likely due to orthostasis Admission and Anticipated Discharge Date Admission Date: September 13, 2022 Subjective patient seen and examined, abd pain has resolved and constipation too, but complains of fatigue and inability to tolerate PT Review of Systems Review of Systems: All systems reviewed are negative, apart from the ones contained in the history. Physical Exam Physical Exam: The patient is awake, alert and oriented 3, well developed and well nourished, normocephalic and atraumatic, lying in bed and in no acute distress. HEENT--PERRL, EOMI, mucous membranes and oropharynx mildly dry Neck--supple. No JVD. No bruits. Thyroid normal, trachea midline, no adenopathy. Heart--normal S1 and S2. No murmurs, rubs or gallops. Lungs--clear bilaterally, no respiratory distress, no accessory muscle use. Abdomen--normal bowel sounds and soft. Mild epigastric and left sided abdominal pain Extremities--no cyanosis or clubbing. No edema. Dermatologic--normal skin turgor, normal color, no abnormal lymph nodes, no rash. Neurologic--cranial nerves II through XII grossly intact. Rheumatologic--normal range of motion. Psychiatric--normal affect. Results & Data Results & Data Vital Signs (Past 12 Hours) Vital Signs Temp Pulse Pulse Resp BP Pulse Ox O2 Del Method 09/16/22 11:22 97.5 F L 64 18 91/52 L 92 Room Air 09/16/22 10:58 88 L 09/16/22 08:00 Room Air 09/16/22 08:00 110 H 09/16/22 08:15 103 H 09/16/22 07:32 97.7 F 103 H 19 133/77 91 Room Air 09/16/22 03:38 98.2 F 97 H 18 103/61 95 Room Air PG Care Time/CCT Total # of Minutes Spent Total Time Spent with Patient: Total time spent is greater than 50% in coordination of care (as documented) at patient's floor/unit and/or counseling patient: Coding Level of Care Code 88915 SUB INP/OBS CARE 2/35MIN Diagnoses Abdominal pain R10.9 Hyponatremia E87.1 History of AAA (abdominal aortic aneurysm) repair Z98.890 Interstitial lung disease J84.9 Bladder cancer C67.9 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 Depression F32.A Hypomagnesemia E83.42 Orthostasis I95.1 Time Spent (min) 35
[2022-09-16] MEDS: MIDODRINE HCL 2.5 MG TAB PO SCH (17:20)
[2022-09-17] MEDS: MELATONIN 3 MG TAB PO PRN (03:25)
[2022-09-17] MEDS: LEVOTHYROXINE SODIUM 112 MCG TABLET PO SCH (05:24)
[2022-09-17 07:05] LABS: Calcium 8.5 mg/dl (8.6-10.3); Est GFR (African American) 75.4 ml/min; Potassium 4.3 mmol/L (3.5-5.1)
[2022-09-17] MEDS: DOCUSATE SODIUM/SENNA 50/8.6MG TAB PO SCH (07:51)
[2022-09-17] MEDS: INSULIN ASPART PER UNIT CHARGE SC SCH ×4 (07:51→20:31)
[2022-09-17] MEDS: POLYETHYLENE (MIRALAX) 17 GM PACK PO SCH ×2 (07:51→20:31)
[2022-09-17] MEDS: DIGOXIN 0.125 MG TAB PO SCH (07:52)
[2022-09-17] MEDS: APIXABAN 5 MG TABLET PO SCH ×2 (07:52→20:33)
[2022-09-17] MEDS: SENNA 8.6 MG TAB PO SCH (07:52)
[2022-09-17] MEDS: MAGNESIUM OXIDE 400 MG TAB PO SCH (07:53)
[2022-09-17] MEDS: ASPIRIN 81 MG ECTAB PO SCH (07:53)
[2022-09-17] MEDS: PANTOprazole 40 MG TAB PO SCH (07:53)
[2022-09-17] MEDS: CHOLECALCIFEROL 1,000 UNITS 25 MCG TAB PO SCH (07:53)
[2022-09-17] MEDS: METOPROLOL SUCC 50MG EXT REL TAB PO SCH (07:53)
[2022-09-17] MEDS: VERAPAMIL HCL 180 MG TABCR PO SCH (07:54)
[2022-09-17] MEDS: MIDODRINE HCL 2.5 MG TAB PO SCH ×3 (07:54→17:13)
[2022-09-17] MEDS: CETIRIZINE HCL 10 MG TABLET PO SCH (07:54)
[2022-09-17] MEDS: FLUoxetine HCL 10 MG CAP PO SCH (07:54)
[2022-09-17] MEDS: SODIUM CHLORIDE 1 GM TABLET PO SCH ×4 (07:55→20:30)
[2022-09-17] MEDS: LANTUS PER UNIT CHARGE SQ SCH ×2 (08:00→20:35)
--- NOTE | 2022-09-17 08:09 | Nephrology Progress Note ---
Date of Service September 17, 2022 Assessment & Plan (1) Acute hyponatremia: Plan: * Hypoosmolar hyponatremia * Patient is clinically volume contracted * TSH, Cortisol - WNL * Preserved kidney function * PT notes 09/16 show marked orthostasis. Will provide 1 L 0.9 NS * Will increase NaCl to 2g po TID * Monitor PRP, Uosm (2) Abdominal pain: Plan: * Resolved * Patient reports constipation has improved * 09/14/[address] shows aortobifemoral stent w/ endoleak. This has been stable compared to recent study completed for vascular surgery at [place], [place] Admission and Anticipated Discharge Date Admission Date: September 13, 2022 Subjective Mr. Stephenson was evaluated in his hospital room this morning. He reports dizziness when working w/ PT yesterday. Review of Systems Constitutional: no fever Eyes: no problem reported Ear, Nose, Mouth, Throat: no problem reported Respiratory: no cough and no dyspnea Cardiovascular: no chest pain Gastrointestinal: no abdominal pain, no nausea, no vomiting and no diarrhea/loose stools Genitourinary: no dysuria or no urinary hesitancy Physical Exam Constitutional: not in distress Eyes: PERRL, conjunctivae normal, anicteric sclerae ENMT: Mouth: + dry oral mucous membranes Neck: trachea midline, no thyromegaly Respiratory: normal respiratory effort, lungs clear to auscultation Cardiovascular: RRR, no murmur, no edema Gastrointestinal (Abdomen): normal bowel sounds, soft, nontender, no hepatosplenomegaly Neurologic: Speech / Cognition: normal speech and normal cognition Results & Data Vital Signs (Past 12 Hours) Vital Signs Temp Pulse Pulse Resp BP Pulse Ox O2 Del Method 09/17/22 07:52 100 H 09/17/22 03:28 36.8 C 78 18 130/77 90 Room Air 09/16/22 23:03 36.6 C 70 18 127/73 92 Room Air 09/16/22 22:57 68 Laboratory Results Laboratory Tests 09/15/22 09/15/22 09/17/22 Unknown Unknown 05:35 Sodium 128 L Potassium 4.3 Chloride 92 L Carbon Dioxide 32 BUN 18 Creatinine 1.06 Glucose 56 L Urine Osmolality 452 L Ur Random Sodium 31 09/17/22 Unknown Sodium Potassium Chloride Carbon Dioxide BUN Creatinine Glucose Urine Osmolality 483 L Ur Random Sodium PG Care Time/CCT Total # of Minutes Spent Total Time Spent with Patient: Total time spent is greater than 50% in coordination of care (as documented) at patient's floor/unit and/or counseling patient: Coding Level of Care Code 52061 SUB INP/OBS CARE 3/50MIN Diagnoses Acute hyponatremia E87.1 Abdominal pain R10.9
[2022-09-17] MEDS ORDERED: SODIUM CHLORIDE 0.9% 1000ML 1,000 ML IV SCH (08:15)
--- NOTE | 2022-09-17 12:02 | Hospitalist Progress Note ---
Date of Service September 17, 2022 Assessment & Plan (1) Abdominal pain: Plan: Now resolved CT a/p with no acute findings (2) Hyponatremia: Plan: acute/chronic acutely - 121/122 since arrival to [facility] today 128 Appears hypovolemic Nephrology on consult, appreciate recs Continue salt tablets (3) History of AAA (abdominal aortic aneurysm) repair: Plan: s/p AAA repair in 2021 at [facility] CT a/p this admission with -- "There is a infrarenal aortic aneurysm stent with an aortobiiliac stent. This measures up to 54 mm, enlarged from prior exam where it measured 51 mm. There is an endoleak, likely type II from an anterior branch vessel." 07/21/22 - had CTA at [facility] with aortic aneurysm sac 5.9cm; that study showed a KNOWN type 2 endoleak documentation from the vascular surgery clinic from the same date stated they would continue to simply monitor the endoleak every 6 months given that he aneurysm sac has not grown in size (appears to be smaller on this admission's study) no acute Rx needed (4) Interstitial lung disease: Plan: chronic follows with Dr Adrian walsh in [place] at this time Patient did not tolerate OFEV has outpatient appointment on 09/23 (5) Bladder cancer: Plan: noted h/o TURBT for such u/a this admission wnl; not suspicious for UTI (6) 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: Plan: last a1c 6.1% earlier this year is only on metformin at home BSGs very well controlled while here loose novolog SSI (7) Hypothyroidism: Plan: TSH 3.5 cont synthroid (8) Atrial fibrillation with rapid ventricular response: Plan: permanent a.fib cont eliquis cont metoprolol cont digoxin (level is therapeutic) cont verapamil rates were mildly high upon presentation, now <100 (9) HTN (hypertension): Plan: Low BP, will hold anti HTN for now (10) Depression: Plan: On Fluoxetine (11) Hypomagnesemia: Plan: resolved (12) Orthostasis: Plan: positive orthostasis Will start Midodrine 5mg TID Plan DVT proph - Eliquis may benefit from SNF Admission and Anticipated Discharge Date Admission Date: September 13, 2022 Subjective patient seen and examined, denies any new complaints, willing to try PT again today Review of Systems Review of Systems: All systems reviewed are negative, apart from the ones contained in the history. Physical Exam Physical Exam: The patient is awake, alert and oriented 3, well developed and well nourished, normocephalic and atraumatic, lying in bed and in no acute distress. HEENT--PERRL, EOMI, mucous membranes and oropharynx mildly dry Neck--supple. No JVD. No bruits. Thyroid normal, trachea midline, no adenopathy. Heart--normal S1 and S2. No murmurs, rubs or gallops. Lungs--clear bilaterally, no respiratory distress, no accessory muscle use. Abdomen--normal bowel sounds and soft. Mild epigastric and left sided abdominal pain Extremities--no cyanosis or clubbing. No edema. Dermatologic--normal skin turgor, normal color, no abnormal lymph nodes, no rash. Neurologic--cranial nerves II through XII grossly intact. Rheumatologic--normal range of motion. Psychiatric--normal affect. Results & Data Results & Data Vital Signs (Past 12 Hours) Vital Signs Temp Pulse Pulse Resp BP Pulse Ox O2 Del Method 09/17/22 11:30 98.2 F 97 H 18 119/71 97 Room Air 09/17/22 10:37 Room Air 09/17/22 08:00 104 H 09/17/22 08:00 98.2 F 89 18 124/63 97 Room Air 09/17/22 07:52 100 H 09/17/22 03:28 98.2 F 78 18 130/77 90 Room Air PG Care Time/CCT Total # of Minutes Spent Total Time Spent with Patient: Total time spent is greater than 50% in coordination of care (as documented) at patient's floor/unit and/or counseling patient: Coding Level of Care Code 94278 SUB INP/OBS CARE 2/35MIN Diagnoses Abdominal pain R10.9 Hyponatremia E87.1 History of AAA (abdominal aortic aneurysm) repair Z98.890 Interstitial lung disease J84.9 Bladder cancer C67.9 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 Depression F32.A Hypomagnesemia E83.42 Orthostasis I95.1 Time Spent (min) 35
[2022-09-17 13:33] LABS: BUN Creatinine Ratio 18.3 (10-20); Calcium 8.7 mg/dl (8.6-10.3); Creatinine Clr Calc Pharmacy 45.9 ml/min; Est GFR (African American) 64.9 ml/min
[2022-09-17] MEDS: ACETAMINOPHEN 325 MG TAB PO PRN (15:16)
[2022-09-17] MEDS ORDERED: CALCIUM CARBONATE 500 MG CHEWABLE TAB PO PRN (21:56)
[2022-09-18] MEDS: LEVOTHYROXINE SODIUM 112 MCG TABLET PO SCH (06:04)
[2022-09-18 07:08] LABS: Calcium 8.7 mg/dl (8.6-10.3); Creatinine Clr Calc Pharmacy 64.8 ml/min; Est GFR (Non-African American) 81.1 ml/min; Potassium 4.4 mmol/L (3.5-5.1)
[2022-09-18] MEDS: LANTUS PER UNIT CHARGE SQ SCH (08:58)
[2022-09-18] MEDS: INSULIN ASPART PER UNIT CHARGE SC SCH ×4 (08:59→20:33)
[2022-09-18] MEDS: DOCUSATE SODIUM/SENNA 50/8.6MG TAB PO SCH (09:07)
[2022-09-18] MEDS: CETIRIZINE HCL 10 MG TABLET PO SCH (09:07)
[2022-09-18] MEDS: APIXABAN 5 MG TABLET PO SCH ×2 (09:07→20:29)
[2022-09-18] MEDS: METOPROLOL SUCC 50MG EXT REL TAB PO SCH (09:07)
[2022-09-18] MEDS: CHOLECALCIFEROL 1,000 UNITS 25 MCG TAB PO SCH (09:07)
[2022-09-18] MEDS: ASPIRIN 81 MG ECTAB PO SCH (09:07)
[2022-09-18] MEDS: DIGOXIN 0.125 MG TAB PO SCH (09:07)
[2022-09-18] MEDS: FLUoxetine HCL 10 MG CAP PO SCH (09:07)
[2022-09-18] MEDS: MAGNESIUM OXIDE 400 MG TAB PO SCH (09:07)
[2022-09-18] MEDS: MIDODRINE HCL 2.5 MG TAB PO SCH ×3 (09:07→17:33)
[2022-09-18] MEDS: SENNA 8.6 MG TAB PO SCH (09:08)
[2022-09-18] MEDS: POLYETHYLENE (MIRALAX) 17 GM PACK PO SCH ×2 (09:08→20:30)
[2022-09-18] MEDS: VERAPAMIL HCL 180 MG TABCR PO SCH (09:08)
[2022-09-18] MEDS: PANTOprazole 40 MG TAB PO SCH (09:08)
[2022-09-18] MEDS: SODIUM CHLORIDE 1 GM TABLET PO SCH ×3 (09:08→20:30)
--- NOTE | 2022-09-18 10:07 | Nephrology Progress Note ---
Date of Service September 18, 2022 Assessment & Plan (1) Acute hyponatremia: Plan: * Hypoosmolar hyponatremia * TSH, Cortisol - WNL * Preserved kidney function * Continue NaCl to 2g po TID * Monitor PRP, Uosm * If patient is discharged, please continue NaCl supplement and have him follow up in my office in 1-2 weeks ([phone]). I have place order in EMR for outpatient PRP to be completed in 1 week (2) Abdominal pain: Plan: * Resolved * Patient reports constipation has improved * 09/14/[address] shows aortobifemoral stent w/ endoleak. This has been stable compared to recent study completed for vascular surgery at [place], [place] Admission and Anticipated Discharge Date Admission Date: September 13, 2022 Subjective Mr. Stephenson was evaluated in his hospital room this morning. He reports that his orthostasis has improved. He is anxious to return home. Review of Systems Constitutional: no fever Eyes: no problem reported Ear, Nose, Mouth, Throat: no problem reported Respiratory: no cough and no dyspnea Cardiovascular: no chest pain Gastrointestinal: no abdominal pain, no nausea, no vomiting and no diarrhea/loose stools Genitourinary: no dysuria or no urinary hesitancy Physical Exam Constitutional: not in distress Eyes: PERRL, conjunctivae normal, anicteric sclerae ENMT: Mouth: + dry oral mucous membranes Neck: trachea midline, no thyromegaly Respiratory: normal respiratory effort, lungs clear to auscultation Cardiovascular: RRR, no murmur, no edema Gastrointestinal (Abdomen): normal bowel sounds, soft, nontender, no hepatosplenomegaly Neurologic: Speech / Cognition: normal speech and normal cognition Results & Data Vital Signs (Past 12 Hours) Vital Signs Temp Pulse Pulse Resp BP Pulse Ox O2 Del Method 09/18/22 09:07 119 H 09/18/22 08:04 36.8 C 119 H 22 135/89 90 Nasal Cannula 09/18/22 03:17 36.7 C 84 18 138/82 91 Nasal Cannula 09/17/22 23:01 36.7 C 67 16 138/73 91 Room Air 09/17/22 22:53 Nasal Cannula O2 Flow Rate 09/18/22 09:07 09/18/22 08:04 3 09/18/22 03:17 09/17/22 23:01 09/17/22 22:53 2 Laboratory Results Laboratory Tests 09/18/22 05:59 Sodium 127 L Potassium 4.4 Chloride 94 L Carbon Dioxide 27 BUN 17 Creatinine 0.85 D Glucose 68 L Laboratory Tests 09/18/22 Unknown Urine Osmolality 499 L PG Care Time/CCT Total # of Minutes Spent Total Time Spent with Patient: Total time spent is greater than 50% in coordination of care (as documented) at patient's floor/unit and/or counseling patient: Coding Level of Care Code 47588 SUB INP/OBS CARE 3/50MIN Diagnoses Acute hyponatremia E87.1 Abdominal pain R10.9
--- NOTE | 2022-09-18 10:59 | XRay Report ---
XR chest 1V portable HISTORY: 82 years-old Male sob acute shortness of breath COMPARISON: 09/13/2022, 08/22/2022. TECHNIQUE: AP view of the chest FINDINGS: Cardiomegaly. Left subclavian pacer. Chronic interstitial lung disease. No pneumothorax, or pleural e ffusion. Pulmonary vascular congestion with progressively worsening interstitial coarsening. Degenera tive changes of the shoulders and spine. IMPRESSION: 1. Cardiomegaly with progressive interstitial opacities suggestive of probable pulmonary edema. 2. Chronic interstitial lung disease. ACT 112: Negative or not required by law. The above report was generated using voice recognition software. It may contain grammatical, syntax o r spelling errors. Electronically signed by: Peña Martinez M.D. 09/18/2022 10:56 AM
[2022-09-18] MEDS: ACETAMINOPHEN 325 MG TAB PO PRN (11:35)
[2022-09-18] MEDS: ALBUT/IPRATROP 3MG/0.5MG NEB 3 ML VIAL NEB SCH ×5 (13:26→22:52)
--- NOTE | 2022-09-18 14:11 | Hospitalist Progress Note ---
Date of Service September 18, 2022 Assessment & Plan (1) Abdominal pain: Plan: Now resolved CT a/p with no acute findings (2) Pulmonary edema: Plan: Patient was a little more short of breath today Chest x ray showed evidence of pulmonary edema IV fluid has been discontinued Will hold off on lasix on account of his hyponatremia and low BP currently on 3L oxygen nasal canula, wean as tolerated (3) Hyponatremia: Plan: acute/chronic acutely - 121/122 since arrival to [facility] today 127 Appears hypovolemic Nephrology on consult, appreciate recs Continue salt tablets 2g TID (4) History of AAA (abdominal aortic aneurysm) repair: Plan: s/p AAA repair in [address] [facility] [address] a/p this admission with -- "There is a infrarenal aortic aneurysm stent with an aortobiiliac stent. This measures up to 54 mm, enlarged from prior exam where it measured 51 mm. There is an endoleak, likely type II from an anterior branch vessel." 07/21/22 - had CTA at [facility] with aortic aneurysm sac 5.9cm; that study showed a KNOWN type 2 endoleak documentation from the vascular surgery clinic from the same date stated they would continue to simply monitor the endoleak every 6 months given that he aneurysm sac has not grown in size (appears to be smaller on this admission's study) no acute Rx needed (5) Interstitial lung disease: Plan: chronic follows with Dr Adrian walsh in [place] at this time Patient did not tolerate OFEV has outpatient appointment on 09/23 (6) Bladder cancer: Plan: noted h/o TURBT for such u/a this admission wnl; not suspicious for UTI (7) 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: Plan: last a1c 6.1% earlier this year is only on metformin at home BSGs very well controlled while here loose novolog SSI (8) Hypothyroidism: Plan: TSH 3.5 cont synthroid (9) Atrial fibrillation with rapid ventricular response: Plan: permanent a.fib cont eliquis cont metoprolol cont digoxin (level is therapeutic) cont verapamil rates were mildly high upon presentation, now <100 (10) HTN (hypertension): Plan: Low BP, will hold anti HTN for now (11) Depression: Plan: On Fluoxetine (12) Hypomagnesemia: Plan: resolved (13) Orthostasis: Plan: positive orthostasis Will start Midodrine 5mg TID Plan DVT proph - Tamera may benefit from SNF, but wants to go home Admission and Anticipated Discharge Date Admission Date: September 13, 2022 Subjective patient seen and examined, seems more short of breath today Review of Systems Review of Systems: All systems reviewed are negative, apart from the ones contained in the history. Physical Exam Physical Exam: The patient is awake, alert and oriented 3, well developed and well nourished, normocephalic and atraumatic, lying in bed and in no acute distress. HEENT--PERRL, EOMI, mucous membranes and oropharynx mildly dry Neck--supple. No JVD. No bruits. Thyroid normal, trachea midline, no adenopathy. Heart--normal S1 and S2. No murmurs, rubs or gallops. Lungs--clear bilaterally, no respiratory distress, no accessory muscle use. Abdomen--normal bowel sounds and soft. Mild epigastric and left sided abdominal pain Extremities--no cyanosis or clubbing. No edema. Dermatologic--normal skin turgor, normal color, no abnormal lymph nodes, no rash. Neurologic--cranial nerves II through XII grossly intact. Rheumatologic--normal range of motion. Psychiatric--normal affect. Results & Data Results & Data Vital Signs (Past 12 Hours) Vital Signs Temp Pulse Pulse Resp BP Pulse Ox O2 Del Method 09/18/22 13:28 70 18 Nasal Cannula 09/18/22 12:00 97.9 F 73 19 97/54 L 90 Nasal Cannula 09/18/22 10:53 Nasal Cannula 09/18/22 08:00 102 H 09/18/22 09:07 119 H 09/18/22 08:04 98.2 F 119 H 22 135/89 90 Nasal Cannula 09/18/22 03:17 98.1 F 84 18 138/82 91 Nasal Cannula O2 Flow Rate 09/18/22 13:28 3 09/18/22 12:00 3 09/18/22 10:53 3 09/18/22 08:00 09/18/22 09:07 09/18/22 08:04 3 09/18/22 03:17 PG Care Time/CCT Total # of Minutes Spent Total Time Spent with Patient: Total time spent is greater than 50% in coordination of care (as documented) at patient's floor/unit and/or counseling patient: Coding Level of Care Code 29920 SUB INP/OBS CARE 2/35MIN Diagnoses Abdominal pain R10.9 Pulmonary edema J81.1 Hyponatremia E87.1 History of AAA (abdominal aortic aneurysm) repair Z98.890 Interstitial lung disease J84.9 Bladder cancer C67.9 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 Depression F32.A Hypomagnesemia E83.42 Orthostasis I95.1 Time Spent (min) 35
[2022-09-19] MEDS: ALBUT/IPRATROP 3MG/0.5MG NEB 3 ML VIAL NEB SCH ×4 (02:36→14:46)
[2022-09-19] MEDS: ACETAMINOPHEN 325 MG TAB PO PRN ×3 (02:46→15:51)
[2022-09-19] MEDS: LEVOTHYROXINE SODIUM 112 MCG TABLET PO SCH (04:45)
[2022-09-19] MEDS ORDERED: FUROSEMIDE INJ 20 MG/2 ML VIAL IV ONE ×2 (05:05→22:21)
[2022-09-19 06:31] LABS: BUN Creatinine Ratio 23.7 (10-20); Calcium 8.5 mg/dl (8.6-10.3); Creatinine Clr Calc Pharmacy 56.8 ml/min; Est GFR (African American) 83.9 ml/min; Est GFR (Non-African American) 72.4 ml/min; Potassium 4.7 mmol/L (3.5-5.1)
[2022-09-19] MEDS: MIDODRINE HCL 2.5 MG TAB PO SCH ×3 (08:28→16:52)
[2022-09-19] MEDS: APIXABAN 5 MG TABLET PO SCH ×2 (08:29→19:30)
[2022-09-19] MEDS: ASPIRIN 81 MG ECTAB PO SCH (08:29)
[2022-09-19] MEDS: PANTOprazole 40 MG TAB PO SCH (08:30)
[2022-09-19] MEDS: POLYETHYLENE (MIRALAX) 17 GM PACK PO SCH ×2 (08:31→19:33)
[2022-09-19] MEDS: DOCUSATE SODIUM/SENNA 50/8.6MG TAB PO SCH (08:31)
[2022-09-19] MEDS: SENNA 8.6 MG TAB PO SCH (08:31)
[2022-09-19] MEDS: METOPROLOL SUCC 50MG EXT REL TAB PO SCH (08:32)
[2022-09-19] MEDS: VERAPAMIL HCL 180 MG TABCR PO SCH (08:32)
[2022-09-19] MEDS: MAGNESIUM OXIDE 400 MG TAB PO SCH (08:34)
[2022-09-19] MEDS: FLUoxetine HCL 10 MG CAP PO SCH (08:34)
[2022-09-19] MEDS: CETIRIZINE HCL 10 MG TABLET PO SCH (08:35)
[2022-09-19] MEDS: DIGOXIN 0.125 MG TAB PO SCH (08:36)
[2022-09-19] MEDS: CHOLECALCIFEROL 1,000 UNITS 25 MCG TAB PO SCH (08:36)
--- NOTE | 2022-09-19 08:37 | Pulmonary Consultation ---
Date of Consultation September 19, 2022 Assessment & Plan (1) Interstitial lung disease: (2) Acute hypoxemic respiratory failure: (3) Pulmonary edema: Plan Impression: 81-year-old male with interstitial lung disease. Patient significant progression since his last film and clinically appears worse. He is now established with [facility] and getting his care through them. He is admitted with worsening shortness of breath and progressive hypoxemic respiratory failure and his chest x-ray demonstrates progression confirmed on the CT of his abdomen and pelvis. Recommendations: 1. 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 I had a long extensive discussion with the patient. I advised him that there is no treatment which will reverse the degree of fibrosis in his lungs at this point time. He has been tried on antifibrotic agents and has been poorly tolerant of them in the past largely due to GI side effects. We attempted to refer him to pulmonary rehab previously but he was unable to complete the program. He is clinically declining and radiographically progressing. I do not have his most recent evaluation from [facility]. It would be helpful to have his imaging pushed into our system and results of his last PFTs reviewed to have some objective evidence as to his decline however clinically again he appears to be progressing fairly rapidly. At this point in time steroids are unlikely to be beneficial in IPF. Will check BNP and procalcitonin. We will also check inflammatory markers as if his CRP were markedly elevated, may consider trial of steroids but review of the CT images of his abdomen of the lung bases shows more dense fibrosis and less groundglass opacity which is unlikely to be responsive to steroids. Ultimately, I advised the patient that this is a progressive disease. He is likely going to from his underlying pulmonary fibrosis. We discussed referral for palliative care and hospice however he states he is not ready to consider that now. I did discuss mechanisms with him to control his shortness of breath and pain late his symptoms but he is not open to the prospect currently. 2. We will continue mucolytic's to see if we can improve his cough and ability to handle secretions. Would favor symptomatic therapy. We will hold off on hypertonic saline for now 3. Recommend continued optimization of volume status. Control of his atrial fibrillation may also improve his dyspnea. Per primary service 4. Out of bed to chair and ambulate as tolerated. Confirmed DNR/DNI CODE STATUS. Unfortunately I think the patient is likely going to progress with regards to his lung disease and given the rate of progression over the last 6 months, his overall life expectancy may be 6 to 12 months. He wishes to continue to follow with [facility] outpatient pulmonary History of Present Illness Attending Physician: Adrianna Evans MD History of Present Illness Asked by hospitalist to evaluate this patient with interstitial lung disease and hypoxemic respiratory failure. The patient is known to me from clinical evaluation and I last saw him about 6 months ago. At that point time we tried him on a trial of antifibrotic agents for presumed UIP/IPF. Nintedanib was poor ly tolerated and had to be discontinued due to GI side effects. The patient was referred to pulmonary rehab but was too dyspneic to complete the therapy. He sought second opinion at [facility] and was evaluated there last month. A CT scan was performed with updated PFTs. I do not have those results available to review. They placed him on a course of Augmentin and plan on considering reinitiation of nintedanib at a lower dose but apparently this was never accomplished. The patient was admitted to the hospital 09/13/2022 with complaints of abdominal pain. He was also hyponatremic. No sinister etiology for his abdominal pain was identified. Chest x-ray showed progression of the airspace opacities and the patient has been diuresed. Nephrology consultation was obtained for his hyponatremia. He was placed on sodium supplementation. The patient does not report any significant cough or sputum production. He does feel congested in his chest and states that sometimes he has difficulty expectorating phlegm. He has not noted any wheezing. He states that his shortness of breath is becoming quite debilitating. He does have atrial fibrillation and some underlying valvular heart abnormalities which are likely contributing. He has not noted any chest pain or palpitations and has not had any significant lower extremity edema. Allergies Allergy/AdvReac Type Severity Reaction Status Date / Time simvastatin Allergy Intermediate RASH, Verified 08/10/22 08:00 ITCHING Penicillins Allergy Unknown DOESN'T Verified 08/10/22 08:00 KNOW nintedanib AdvReac Intermediate sickto Verified 08/10/22 08:00 stomach tadalafil AdvReac Intermediate RUNNY Verified 08/10/22 08:00 NOSE, ACHINESS atorvastatin AdvReac Mild MUSCLE Verified 08/10/22 08:00 ACHES dulaglutide [From [facility]] AdvReac Nausea Verified 08/10/22 08:00 Home Medications Medication Instructions Recorded Confirmed Type aspirin 81 mg tablet,delayed 81 mg PO DAILY 10/14/18 08/10/22 History release cholecalciferol (vitamin D3) 50 2,000 units PO DAILY 10/14/18 08/10/22 History mcg (2,000 unit) tablet lancets 33 gauge (OneTouch Delica #100 ea 10/14/18 08/10/22 Rx Lancets) magnesium oxide 400 mg (241.3 mg 400 mg PO DAILY 10/14/18 08/10/22 History magnesium) tablet omega-3 acid ethyl esters 1 gram 2 cap PO DAILY 10/14/18 08/10/22 History capsule omeprazole 20 mg capsule,delayed 20 mg PO DAILY #90 caps 05/15/21 09/13/22 Rx release levothyroxine 112 mcg tablet See Rx Instructions .Route 11/03/21 09/13/22 Rx .COMPLEX #90 tabs cetirizine 10 mg tablet 10 mg PO DAILY 12/01/21 08/10/22 History docusate sodium [Stool Softener] PO 12/01/21 08/10/22 History apixaban 5 mg tablet 5 mg PO BID #180 tabs 05/13/22 09/13/22 Rx digoxin 125 mcg (0.125 mg) tablet 125 mcg PO DAILY #90 tabs 05/13/22 09/13/22 Rx metformin 500 mg tablet 1,000 mg PO .COMPLEX #270 tabs 05/13/22 09/13/22 Rx olmesartan 20 mg tablet 20 mg PO DAILY #90 tabs 06/02/22 09/13/22 Rx metoprolol succinate 200 mg See Rx Instructions .Route 06/12/22 09/13/22 Rx tablet,extended release 24 hr .COMPLEX #30 tabs verapamil 180 mg tablet,extended 180 mg PO DAILY #90 tabs 06/12/22 09/13/22 Rx release levalbuterol tartrate 45 2 inh inhalation Q6H PRN shortness 07/09/22 09/13/22 Rx mcg/actuation aerosol inhaler of breath #15 grams ondansetron HCl 8 mg tablet 8 mg PO Q12H PRN nausea #60 tabs 07/09/22 09/13/22 R x rosuvastatin 5 mg tablet 5 mg PO .COMPLEX #15 tabs 07/21/22 09/13/22 Rx blood sugar diagnostic (OneTouch #100 ea 08/24/22 Rx Ultra Test strips) albuterol sulfate 0.63 mg/3 mL 0.63 mg inhalation Q6H PRN Wheezing 09/13/22 09/13/22 History solution for nebulization ipratropium bromide 0.02 % 2.5 ml inhalation Q6H PRN Wheezing 09/13/22 09/13/22 History solution for inhalation Patient History Medical History Acid reflux disease Anticoagulant long-term use Arteriosclerotic cardiovascular disease Biceps muscle tear Biceps tendon rupture Bladder cancer 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, uncontrolled Dyslipidemia Erythema migrans (Lyme disease) Gastritis History of squamous cell carcinoma of skin Hypothyroidism Onychomycosis Permanent atrial fibrillation Thrombocytopenia Tubular adenoma of colon (11/10/13) Vitamin D deficiency Surgical History History of AAA (abdominal aortic aneurysm) repair History of bladder surgery "scraped" for bladder cancer History of colonoscopy with polypectomy (11/10/13) tubular adenoma History of inguinal hernia repair History of permanent cardiac pacemaker placement History of sinus surgery Hx of tonsillectomy S/P cataract surgery right - 12/16/16 left 12/30/16 Family History Father Aortic aneurysm Brother Coronary heart disease Sudden cardiac arrest Sister History of colon cancer Colorectal cancer Denies family history of Ovarian cancer Prostate cancer Diabetes Depression Myocardial infarction Breast cancer Lung cancer Social History Smoking Status: Former smoker Age Started Using Tobacco: 16; Age Quit Using Tobacco: 25; Second Hand Exposure: No; Do You Dip or Chew Tobacco: No; Hx Alcohol Use: No Hx Substance Use: No Preferred Language: Persian Communication Ability: Effective Visual Impairment: No Limitations Hearing Ability: Hard of Hearing 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: No Beliefs That Will Affect Care: None marital status: Current Living Situation: Spouse current occupational status: retired Feels Safe at Home: Yes Childhood Exposure to Second-Hand Smoke: No Diet: regular caffeine: Yes Dental Care, Regularly: No Physical Activity Frequency: Daily Seatbelt Use: always Sunscreen Use: No Assistive Devices: None Review of Systems Review of Systems: All systems reviewed & are unremarkable except as noted in Subjective Physical Exam Constitutional: WD/WN, vitals as above Neck: trachea midline, no thyromegaly Respiratory: + labored breathing and + tachypneic; no respiratory distress Auscultation: + crackles; no wheezes Basilar crackles bilateral Cardiovascular: RRR, no murmur, no edema Gastrointestinal (Abdomen): normal bowel sounds, soft, nontender, no hepatosplenomegaly Musculoskeletal: Extremities: extremities normal to inspection Skin: no rashes, warm and dry Neurologic: Nonfocal exam Lymphatic: no cervical lymphadenopathy Results & Data Results & Data Vital Signs (Past 12 Hours) Vital Signs Temp Pulse Pulse Resp BP Pulse Ox O2 Del Method 09/19/22 07:34 36.5 C 112 H 17 112/84 95 Nasal Cannula 09/19/22 07:17 88 20 93 Nasal Cannula 09/19/22 03:43 37.0 C 88 20 137/89 93 Nasal Cannula 09/19/22 02:37 88 18 91 Nasal Cannula 09/18/22 23:07 36.9 C 88 16 125/74 92 Nasal Cannula 09/18/22 22:52 68 18 92 Nasal Cannula O2 Flow Rate 09/19/22 07:34 6 09/19/22 07:17 6 09/19/22 03:43 4.0 09/19/22 02:37 2 09/18/22 23:07 2.0 09/18/22 22:52 2 Diagnostic Findings Echocardiogram from 07/29/2022 showed EF of 50 to 55% without regional wall motion abnormalities. Concentric LVH was noted. Left atrium was severely dilated with mild reduction of the right ventricular function. Right atrium was severely dilated. Mild aortic insufficiency was present. Trace mitral regurgitation was noted. PA pressures were estimated in the 40-50 range. IVC showed a normal collapsibility index. Critical Care Results & Data Vital Signs (Past 12 Hours) Vital Signs Temp Pulse Pulse Resp BP Pulse Ox O2 Del Method 09/19/22 07:34 36.5 C 112 H 17 112/84 95 Nasal Cannula 09/19/22 07:17 88 20 93 Nasal Cannula 09/19/22 03:43 37.0 C 88 20 137/89 93 Nasal Cannula 09/19/22 02:37 88 18 91 Nasal Cannula 09/18/22 23:07 36.9 C 88 16 125/74 92 Nasal Cannula 09/18/22 22:52 68 18 92 Nasal Cannula O2 Flow Rate 09/19/22 07:34 6 09/19/22 07:17 6 09/19/22 03:43 4.0 09/19/22 02:37 2 09/18/22 23:07 2.0 09/18/22 22:52 2 Lab & Micro Results (Past 24 Hours) No Data to Display Na 126 mmol/L (136-145) L 09/19/22 K 4.7 mmol/L (3.5-5.1) 09/19/22 Cl 92 mmol/L (98-107) L 09/19/22 CO2 29 mmol/L (21-32) 09/19/22 Anion Gap 5 (3-11) 09/19/22 BUN 23 mg/dl (6-23) 09/19/22 Creatinine 0.97 mg/dl (0.6-1.4) 09/19/22 Estimated GFR ( Amer) 83.9 ml/min 09/19/22 Estimated GFR (Non-Af Amer) 72.4 ml/min 09/19/22 BUN/Creatinine Ratio 23.7 (10-20) H 09/19/22 Glu 111 mg/dl (70-99(Fasting)) H 09/19/22 Ca 8.5 mg/dl (8.6-10.3) L 09/19/22 Calcium Level 8.5 mg/dl (8.6-10.3) L 09/19/22 05:48 Diagnostic Findings (Past 24 Hours) Chest X-Ray 09/18/22 09:01 XR chest 1V portable HISTORY: 82 years-old Male sob acute shortness of breath COMPARISON: 09/13/2022, 08/22/2022. TECHNIQUE: AP view of the chest FINDINGS: Cardiomegaly. Left subclavian pacer. Chronic interstitial lung disease. No pneumothorax, or pleural effusion. Pulmonary vascular congestion with progressively worsening interstitial coarsening. Degenerative changes of the shoulders and spine. IMPRESSION: 1. Cardiomegaly with progressive interstitial opacities suggestive of probable pulmonary edema. 2. Chronic interstitial lung disease. ACT 112: Negative or not required by law. The above report was generated using voice recognition software. It may contain grammatical, syntax or spelling errors. Electronically signed by: Peña Martinez M.D. 09/18/2022 10:56 AM I & O Totals 24 Hours 09/18/22 09/19/22 09/20/22 06:59 06:59 06:59 Intake Total 2500 / 2500 600 / 600 Output Total 2075 / 2075 725 / 725 Balance 425 / 425 -125 / -125 Cumulative 09/13/22 08:46 thru 09/19/22 06:31 Intake Total 7161 Output Total 8204 Balance -1043 RT Ventilator Mngmt (Last Documented) Ventilator Ordered Settings Respiratory Rate 17 09/19/22 07:34 Ventilator - PT Measurements Respiratory Rate 17 PG Care Time/CCT Total # of Minutes Spent Total Time Spent with Patient: Total time spent is greater than 50% in coordination of care (as documented) at patient's floor/unit and/or counseling patient: Coding Level of Care Code 52665 INT INP/OBS CARE 3/75MIN Diagnoses Interstitial lung disease J84.9 Acute hypoxemic respiratory failure J96.01 Pulmonary edema J81.1
[2022-09-19] MEDS: SODIUM CHLORIDE 1 GM TABLET PO SCH ×3 (08:39→19:34)
[2022-09-19] MEDS: LANTUS PER UNIT CHARGE SC SCH (08:46)
[2022-09-19] MEDS: INSULIN ASPART PER UNIT CHARGE SC SCH ×4 (08:46→20:49)
[2022-09-19] MEDS ORDERED: TOLVAPTAN 15 MG TABLET PO STA (09:32)
[2022-09-19] MEDS: guaiFENesin 600 MG TABCR PO SCH ×2 (10:46→19:32)
--- NOTE | 2022-09-19 13:45 | Nephrology Progress Note ---
Date of Service September 19, 2022 Assessment & Plan (1) Acute hyponatremia: (2) Hypomagnesemia: (3) Interstitial lung disease: Plan Mr. Stephenson is an 82 year old male admitted on 09/14/22 with abdominal pain which was thought to be secondary to constipation as workup including CT abdomen pelvis was otherwise unremarkable. abdominal pain since resolved. Has history of chronic hyponatremia, serum sodium around 128-132. On admission sodium was 122 which slightly improved and staying around 126-127, Hyponatremia most likely related to pain and chronic hypoxic respiratory failure with history of advanced interstitial lung disease. Has h/o HTN, atrial fibrillation, hypothyr oidism, AODM, bladder cancer s/p TURBT, IPF, and AAA s/p EVAR 08/24. on NaCl 1g po BID. TSH and cortisol were checked upon admission and found to be WNL --continue salt tablet, will give 1 dose of tolvaptan today. --Monitor serum sodium q.12 hours Will follow Admission and Anticipated Discharge Date Admission Date: September 13, 2022 Haile Anand was seen and evaluated in his room this morning. He was having significant pain in his right shoulder. blood pressure has been relatively low. Review of Systems Review of Systems: detailed review of system was unremarkable except mentioned above. Physical Exam Constitutional: WD/WN, vitals as above + acute distress and + ill appearing Eyes: + anicteric sclerae Neck: normal visual inspection Respiratory: + respiratory distress, + uses accessory muscles and able to speak in complete sentences Auscultation: + crackles Cardiovascular: Rate/Rhythm: regular rate and regular rhythm Heart Sounds: normal S1 and normal S2 Extremities: no edema Skin: no rashes, warm and dry Neurologic: no focal motor deficits and not confused Psychiatric: Orientation: alert and oriented x 3 Results & Data Vital Signs (Past 12 Hours) Vital Signs Temp Pulse Pulse Pulse Pulse Pulse Pulse 09/19/22 12:14 36.7 C 70 09/19/22 11:09 86 09/19/22 11:06 86 83 88 09/19/22 07:56 09/19/22 08:36 112 H 09/19/22 07:34 36.5 C 112 H 09/19/22 07:17 88 09/19/22 03:43 37.0 C 88 09/19/22 02:37 88 Resp Resp Resp Resp BP BP Pulse Ox 09/19/22 12:14 19 92/53 L 94 09/19/22 11:09 18 90 09/19/22 11:06 18 18 18 09/19/22 07:56 09/19/22 08:36 09/19/22 07:34 17 112/84 95 09/19/22 07:17 20 93 09/19/22 03:43 20 137/89 93 09/19/22 02:37 18 91 Pulse Ox Pulse Ox Pulse Ox O2 Del Method O2 Flow Rate O2 Flow Rate O2 Flow Rate 09/19/22 12:14 Nasal Cannula 6 09/19/22 11:09 Nasal Cannula 6 09/19/22 11:06 83 L 85 L 90 3 6 09/19/22 07:56 Nasal Cannula 6 09/19/22 08:36 09/19/22 07:34 Nasal Cannula 6 09/19/22 07:17 Nasal Cannula 6 09/19/22 03:43 Nasal Cannula 4.0 09/19/22 02:37 Nasal Cannula 2 PG Care Time/CCT Total # of Minutes Spent Total Time Spent with Patient: Total time spent is greater than 50% in coordination of care (as documented) at patient's floor/unit and/or counseling patient: Coding Level of Care Code 42018 SUB INP/OBS CARE 3/50MIN Diagnoses Acute hyponatremia E87.1 Hypomagnesemia E83.42 Interstitial lung disease J84.9
--- NOTE | 2022-09-19 14:28 | Discharge Summary ---
Date of Service September 19, 2022 Principal Diagnosis ILD Discharge Exam The patient is awake, alert and oriented 3, well developed and well nourished, normocephalic and atraumatic, lying in bed and in no acute distress. HEENT--PERRL, EOMI, mucous membranes and oropharynx mildly dry Neck--supple. No JVD. No bruits. Thyroid normal, trachea midline, no adenopathy. Heart--normal S1 and S2. No murmurs, rubs or gallops. Lungs--clear bilaterally, no respiratory distress, no accessory muscle use. Abdomen--normal bowel sounds and soft. Mild epigastric and left sided abdominal pain Extremities--no cyanosis or clubbing. No edema. Dermatologic--normal skin turgor, normal color, no abnormal lymph nodes, no rash. Neurologic--cranial nerves II through XII grossly intact. Rheumatologic--normal range of motion. Psychiatric--normal affect. Discharge Data Allergies Allergy/AdvReac Type Severity Reaction Status Date / Time simvastatin Allergy Intermediate RASH, Verified 08/10/22 08:00 ITCHING Penicillins Allergy Unknown DOESN'T Verified 08/10/22 08:00 KNOW nintedanib AdvReac Intermediate sickto Verified 08/10/22 08:00 stomach tadalafil AdvReac Intermediate RUNNY Verified 08/10/22 08:00 NOSE, ACHINESS atorvastatin AdvReac Mild MUSCLE Verified 08/10/22 08:00 ACHES dulaglutide [From Trulicity] AdvReac Nausea Verified 08/10/22 08:00 Consultations 09/13/22 12:31 ED Decision to Admit Stat 09/14/22 14:38 Consult Nephrology Routine 09/18/22 10:10 Consult Pulmonology Routine Ordered Studies 09/13/22 09:12 CT abd pelvis IV con only Stat Hospital Course (1) Abdominal pain: Now resolved CT a/p with no acute findings (2) Pulmonary edema: Patient was a little more short of breath today Chest x ray showed evidence of pulmonary edema IV fluid has been discontinued Will hold off on lasix on account of his hyponatremia and low BP currently on 3L oxygen nasal canula, wean as tolerated (3) Hyponatremia: acute/chronic acutely - 121/122 since arrival to [facility] today 127 Appears hypovolemic Nephrology on consult, appreciate recs Continue salt tablets 2g TID (4) History of AAA (abdominal aortic aneurysm) repair: s/p AAA repair in 2021 at [facility] a/p this admission with -- "There is a infrarenal aortic aneurysm stent with an aortobiiliac stent. This measures up to 54 mm, enlarged from prior exam where it measured 51 mm. There is an endoleak, likely type II from an anterior branch vessel." 07/21/22 - had CTA at [facility] with aortic aneurysm sac 5.9cm; that study showed a KNOWN type 2 endoleak documentation from the vascular surgery clinic from the same date stated they would continue to simply monitor the endoleak every 6 months given that he aneurysm sac has not grown in size (appears to be smaller on this admission's study) no acute Rx needed (5) Interstitial lung disease: chronic , now worsening with SOB Now on 6L oxugen through nasal canula follows with Dr Adrian walsh in [place] at this time Patient did not tolerate OFEV has outpatient appointment on 09/23 Discharge on oxygen (6) Bladder cancer: noted h/o TURBT for such u/a this admission wnl; not suspicious for UTI (7) 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: last a1c 6.1% earlier this year is only on metformin at home BSGs very well controlled while here loose novolog SSI (8) Hypothyroidism: TSH 3.5 cont synthroid (9) Atrial fibrillation with rapid ventricular response: permanent a.fib cont eliquis cont metoprolol cont digoxin (level is therapeutic) cont verapamil rates were mildly high upon presentation, now <100 (10) HTN (hypertension): Low BP, will hold anti HTN for now (11) Depression: On Fluoxetine (12) Hypomagnesemia: resolved (13) Orthostasis: positive orthostasis Will start Midodrine 5mg TID Plan d/c home Total Time Total Time Spent Total Time Spent (In Minutes): 35 Discharge Plan Discharge Items Patient Disposition: Home - Self-Care Reason For Visit: ABDOMINAL PAIN Discharge Diagnosis: Interstitial Lung Disease Activity: Resume your previous activity Non-emergency contact: Primary Care Provider and Customer Relations Representative Call non-emergency contact if: you have any medication questions Follow-up/Referrals: Shlomo Adam DO [Primary Care Provider] - Diet: Regular Addtl Attending Provider Instructions: please make appointment to follow up with your regular doctors Pending Studies at Discharge: No Stand-Alone Forms: [facility], Smoking Cessation Medications and DC Order Prescriptions: New midodrine 2.5 mg Tablet 5 mg PO TID@0800,1200,1700 30 Days Qty: 20 0RF Continued levothyroxine 112 mcg tablet See Rx Instructions .ROUTE .COMPLEX Qty: 90 3RF Dose Instruction: TAKE 1 TABLET BY MOUTH DAILY Rx Instructions: TAKE 1 TABLET BY MOUTH DAILY metformin 500 mg tablet 1,000 mg PO .COMPLEX Qty: 270 3RF Rx Instructions: 1,000 mg PO in the morning and 1 tablet in the evening; digoxin 125 mcg (0.125 mg) tablet 125 mcg PO DAILY Qty: 90 3RF apixaban 5 mg tablet 5 mg PO BID Qty: 180 3RF metoprolol succinate 200 mg tablet extended release 24 hr See Rx Instructions .ROUTE .COMPLEX Qty: 30 11RF Dose Instruction: TAKE 1 TABLET BY MOUTH DAILY Rx Instructions: TAKE 1 TABLET BY MOUTH DAILY verapamil 180 mg tablet extended release 180 mg PO DAILY Qty: 90 3RF rosuvastatin 5 mg tablet 5 mg PO .COMPLEX Qty: 15 5RF Rx Instructions: 5 mg PO twice weekly ; (DME) OneTouch Ultra Test Strip See Rx Instructions .ROUTE .COMPLEX Qty: 100 3RF Dose Instruction: USE TO TEST BLOOD SUGAR 2 TIMES A DAY AND NEEDED Rx Instructions: USE TO TEST BLOOD SUGAR 2 TIMES A DAY AND NEEDED aspirin 81 mg tablet,delayed release (DR/EC) 81 mg PO DAILY Rx Instructions: [facility] Pharmacist unable to verify OTCS (DME) lancets [OneTouch Delica Lancets] 33 gauge misc See Dose Instructions .ROUTE .MEDSUPPLY Qty: 100 5RF Dose Instruction: As directed Rx Instructions: use to test blood sugars BID and PRN omega-3 acid ethyl esters 1 gram capsule 2 cap PO DAILY Rx Instructions: [facility] Pharmacist unable to verify OTCS magnesium oxide 400 mg (241.3 mg magnesium) tablet 400 mg PO DAILY Rx Instructions: [facility] Pharmacist unable to verify OTCS cholecalciferol (vitamin D3) 2,000 unit tablet 2,000 units PO DAILY Rx Instructions: [facility] Pharmacist unable to verify OTCS omeprazole 20 mg capsule,delayed release(DR/EC) 20 mg PO DAILY Qty: 90 3RF levalbuterol tartrate 45 mcg/actuation HFA aerosol inhaler 2 inh inhalation Q6H PRN (Reason: shortness of breath) Qty: 15 2RF Rx Instructions: filled in july ondansetron HCl 8 mg tablet 8 mg PO Q12H PRN (Reason: nausea) Qty: 60 2RF cetirizine 10 mg tablet 10 mg PO DAILY Rx Instructions: [facility] Pharmacist unable to verify OTCS docusate sodium [Stool Softener] PO Rx Instructions: [facility] Pharmacist unable to verify OTCS olmesartan 20 mg tablet 20 mg PO DAILY Qty: 90 3RF albuterol sulfate 0.63 mg/3 mL solution for nebulization 0.63 mg inhalation Q6H PRN (Reason: Wheezing) Rx Instructions: Verified prescriptions with [facility] pharmacist, unable to verify OTCs ipratropium bromide 0.02 % solution 2.5 ml inhalation Q6H PRN (Reason: Wheezing) Discharge Orders: Discharge Order (Routine); Ordered 09/19/22 Ordered By: Adrianna Evans Admission Data Admit Date/Time: 09/13/22 13:07 Attending Provider: Adrianna Evans Admit Provider: Prince Walker Primary Care Provider: Shlomo Adam Other Providers: Prince Walker ; Anthony Armstrong ; [facility] ; Reagan Abernathy Coding Level of Care Code 49588 INP/OBS DISCH >30 MIN Diagnoses Abdominal pain R10.9 Pulmonary edema J81.1 Hyponatremia E87.1 History of AAA (abdominal aortic aneurysm) repair Z98.890 Interstitial lung disease J84.9 Bladder cancer C67.9 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 Depression F32.A Hypomagnesemia E83.42 Orthostasis I95.1 Time Spent (min) 35
[2022-09-19] MEDS ORDERED: ALBUT/IPRATROP 3MG/0.5MG NEB 3 ML VIAL NEB PRN (16:45)
--- NOTE | 2022-09-19 16:47 | Hospitalist Progress Note ---
Date of Service September 19, 2022 Assessment & Plan (1) Abdominal pain: Plan: Now resolved CT a/p with no acute findings (2) Pulmonary edema: Plan: Patient was a little more short of breath today, now needing 6L of oxygen Chest x ray showed evidence of pulmonary edema and ILD Will need oxygen at home family leaning towards palliative and hospice (3) Hyponatremia: Plan: acute/chronic acutely - 121/122 since arrival to [facility] today 126 Appears hypovolemic Nephrology on consult, appreciate recs Continue salt tablets 2g TID Got a dose of Tolvaptan (4) History of AAA (abdominal aortic aneurysm) repair: Plan: s/p AAA repair in [address] [facility] [address] a/p this admission with -- "There is a infrarenal aortic aneurysm stent with an aortobiiliac stent. This measures up to 54 mm, enlarged from prior exam where it measured 51 mm. There is an endoleak, likely type II from an anterior branch vessel." 07/21/22 - had CTA at [place] with aortic aneurysm sac 5.9cm; that study showed a KNOWN type 2 endoleak documentation from the vascular surgery clinic from the same date stated they would continue to simply monitor the endoleak every 6 months given that he aneurysm sac has not grown in size (appears to be smaller on this admission's study) no acute Rx needed (5) Interstitial lung disease: Plan: chronic , now worsening with SOB Now on 6L oxugen through nasal canula follows with Dr Adrian walsh in [place] at this time Patient did not tolerate OFEV has outpatient appointment on 09/23 Discharge on oxygen (6) Bladder cancer: Plan: noted h/o TURBT for such u/a this admission wnl; not suspicious for UTI (7) 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: Plan: last a1c 6.1% earlier this year is only on metformin at home BSGs very well controlled while here loose novolog SSI (8) Hypothyroidism: Plan: TSH 3.5 cont synthroid (9) Atrial fibrillation with rapid ventricular response: Plan: permanent a.fib cont eliquis cont metoprolol cont digoxin (level is therapeutic) cont verapamil rates were mildly high upon presentation, now <100 (10) HTN (hypertension): Plan: Low BP, will hold anti HTN for now (11) Depression: Plan: On Fluoxetine (12) Hypomagnesemia: Plan: resolved (13) Orthostasis: Plan: positive orthostasis Will start Midodrine 5mg TID Plan plan is hospice Admission and Anticipated Discharge Date Admission Date: September 13, 2022 Subjective patient seen and examined, family by the bedside, they want to take him home Review of Systems Review of Systems: All systems reviewed are negative, apart from the ones contained in the history. Physical Exam Physical Exam: The patient is awake, alert and oriented 3, well developed and well nourished, normocephalic and atraumatic, lying in bed and in no acute distress. HEENT--PERRL, EOMI, mucous membranes and oropharynx mildly dry Neck--supple. No JVD. No bruits. Thyroid normal, trachea midline, no adenopathy. Heart--normal S1 and S2. No murmurs, rubs or gallops. Lungs--clear bilaterally, no respiratory distress, no accessory muscle use. Abdomen--normal bowel sounds and soft. Mild epigastric and left sided abdominal pain Extremities--no cyanosis or clubbing. No edema. Dermatologic--normal skin turgor, normal color, no abnormal lymph nodes, no rash. Neurologic--cranial nerves II through XII grossly intact. Rheumatologic--normal range of motion. Psychiatric--normal affect. Results & Data Results & Data Vital Signs (Past 12 Hours) Vital Signs Temp Pulse Pulse Pulse Pulse Pulse Pulse 09/19/22 16:02 96.8 F L 63 09/19/22 14:37 98.1 F 86 70 09/19/22 12:14 98.1 F 70 09/19/22 11:09 86 09/19/22 11:06 86 83 88 09/19/22 07:56 09/19/22 08:36 112 H 09/19/22 07:34 97.7 F 112 H 09/19/22 07:17 88 Resp Resp Resp Resp BP BP Pulse Ox 09/19/22 16:02 24 73/49 L 86 L 09/19/22 14:37 19 112/84 92/53 L 94 09/19/22 12:14 19 92/53 L 94 09/19/22 11:09 18 90 09/19/22 11:06 18 18 18 09/19/22 07:56 09/19/22 08:36 09/19/22 07:34 17 112/84 95 09/19/22 07:17 20 93 Pulse Ox Pulse Ox Pulse Ox O2 Del Method O2 Flow Rate O2 Flow Rate O2 Flow Rate 09/19/22 16:02 Oxymask 9 09/19/22 14:37 09/19/22 12:14 Nasal Cannula 6 09/19/22 11:09 Nasal Cannula 6 09/19/22 11:06 83 L 85 L 90 3 6 09/19/22 07:56 Nasal Cannula 6 09/19/22 08:36 09/19/22 07:34 Nasal Cannula 6 09/19/22 07:17 Nasal Cannula 6 PG Care Time/CCT Total # of Minutes Spent Total Time Spent with Patient: Total time spent is greater than 50% in coordination of care (as documented) at patient's floor/unit and/or counseling patient: Coding Level of Care Code 06044 SUB INP/OBS CARE 2/35MIN Diagnoses Abdominal pain R10.9 Pulmonary edema J81.1 Hyponatremia E87.1 History of AAA (abdominal aortic aneurysm) repair Z98.890 Interstitial lung disease J84.9 Bladder cancer C67.9 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 Depression F32.A Hypomagnesemia E83.42 Orthostasis I95.1 Time Spent (min) 35
[2022-09-19] MEDS ORDERED: BUDESONIDE/FORMOTEROL FUMARATE 160/4.5 60 PUFFS/INHALER INH SCH (22:00)
[2022-09-20] MEDS: FLUTICASONE/VILANTEROL 200/25MCG 14 PUFFS/INHALER INH SCH ×2 (00:18→08:34)
[2022-09-20] MEDS: SODIUM CHLOR 7% 4 ML NEB NEB SCH ×2 (02:50→07:21)
[2022-09-20] MEDS: ALBUT/IPRATROP 3MG/0.5MG NEB 3 ML VIAL NEB SCH ×2 (02:51→07:21)
[2022-09-20] MEDS ORDERED: MoRPHine SULFATE 2 MG/ML CARP IV STA (02:55)
[2022-09-20] MEDS ORDERED: FUROSEMIDE INJ 20 MG/2 ML VIAL IV ONE (02:59)
[2022-09-20] MEDS ORDERED: MoRPHine SULFATE 2 MG/ML CARP ONE (03:00)
[2022-09-20] MEDS ORDERED: methylPREDNISolone 60 MG in SYRINGE 0 ML IV STA (03:58)
[2022-09-20] MEDS: LEVOTHYROXINE SODIUM 112 MCG TABLET PO SCH (06:06)
--- NOTE | 2022-09-20 06:42 | Communication Note ---
Date of Service: September 20, 2022 Overnight patient began desaturating fluctuating in the 70s/80s. Repeat chest XR showed worsening ILD. Now on high flow 40L. Scheduled duoneb and symbicort. Started hypertonic saline neb. Was given IV lasix 20mg x2. As last resort gave one dose methylprednisone 60mg. Stable for now but poor prognosis. Resident Activity Tracking Resident Involvement: Resident Care Provided Care Provided: [facility]
[2022-09-20 07:11] LABS: BUN Creatinine Ratio 27.3 (10-20); C Reactive Protein 25.66 mg/dl (0-0.5); Calcium 9.6 mg/dl (8.6-10.3); Creatinine Clr Calc Pharmacy 50.1 ml/min; Est GFR (African American) 72.1 ml/min; Est GFR (Non-African American) 62.2 ml/min; Potassium 5.1 mmol/L (3.5-5.1)
--- NOTE | 2022-09-20 07:43 | XRay Report ---
SINGLE VIEW CHEST CLINICAL HISTORY: Hypoxia. FINDINGS: An AP, portable, upright chest radiograph is compared to study dated 09/18/2022 and correlat ed with chest CT dated 08/22/[address] as abdominal CT dated 09/13/2022. A 2-lead cardiac pacemaker is unchanged in position. The heart is enlarged noting atherosclerotic calcification of the thoracic aorta. Changes of chronic interstitial lung disease are similar to previous. There are increasing phuc ateral airspace opacities. No large pleural effusion or pneumothorax is identified. The skeletal stru ctures are osteopenic. The bony thorax is grossly intact. IMPRESSION: Cardiomegaly and cardiac pacemaker with changes of chronic interstitial lung disease. Phuc ateral airspace opacities have increased from yesterday, and this likely represents worsening pulmona ry edema. Correlate clinically for evidence of a superimposed infectious/inflammatory pneumonitis. Ra diographic follow-up to resolution is recommended. ACT 112: Negative or not required by law. Electronically signed by: Aristeo Schofield M.D. 09/20/2022 7:41 AM
[2022-09-20] MEDS: MIDODRINE HCL 2.5 MG TAB PO SCH (08:30)
[2022-09-20] MEDS: FLUoxetine HCL 10 MG CAP PO SCH (08:31)
[2022-09-20] MEDS: APIXABAN 5 MG TABLET PO SCH (08:31)
[2022-09-20] MEDS: METOPROLOL SUCC 50MG EXT REL TAB PO SCH (08:32)
[2022-09-20] MEDS: DIGOXIN 0.125 MG TAB PO SCH (08:32)
[2022-09-20] MEDS: ASPIRIN 81 MG ECTAB PO SCH (08:34)
[2022-09-20] MEDS: MAGNESIUM OXIDE 400 MG TAB PO SCH (08:35)
[2022-09-20] MEDS: SENNA 8.6 MG TAB PO SCH (08:35)
[2022-09-20] MEDS: PANTOprazole 40 MG TAB PO SCH (08:37)
[2022-09-20] MEDS: CETIRIZINE HCL 10 MG TABLET PO SCH (08:37)
[2022-09-20] MEDS: SODIUM CHLORIDE 1 GM TABLET PO SCH (08:38)
[2022-09-20] MEDS: POLYETHYLENE (MIRALAX) 17 GM PACK PO SCH (08:39)
[2022-09-20] MEDS: guaiFENesin 600 MG TABCR PO SCH (08:40)
[2022-09-20] MEDS: CHOLECALCIFEROL 1,000 UNITS 25 MCG TAB PO SCH (08:41)
[2022-09-20] MEDS: DOCUSATE SODIUM/SENNA 50/8.6MG TAB PO SCH (08:42)
[2022-09-20] MEDS: INSULIN ASPART PER UNIT CHARGE SC SCH (08:52)
[2022-09-20] MEDS: LANTUS PER UNIT CHARGE SC SCH (08:52)
[2022-09-20] MEDS: VERAPAMIL HCL 180 MG TABCR PO SCH (08:53)
[2022-09-20] MEDS ORDERED: STAT IV STA (10:05)
[2022-09-20] MEDS ORDERED: SODIUM CHLORIDE 3 % 150 ML IV ONE (10:05)
--- NOTE | 2022-09-20 10:14 | Death Pronouncement Note ---
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 Per patient reports he came to the hospital due to abdominal pain, constipation and some shortness of breath which is around his normal may be a little bit worse than normal with a feeling of constipation. "Ed" reports he came in for difficulty with bowl movement and 'can't poop, made my stomach hurt.' Hasn't been sleeping well. Poor energy. Just wants to lay down and sleep. Endorses intermittent abdominal pain similar to prior constipation, has not improved with prune juice or laxative. Helped a little, although had had some urinary frequency as well. No burning with urination. No abdominal pain at time of admission. Had has some R shoulder/wrist pain similar to his prior neuropathy which has not changed. Notes this feels worse when it is cold and the room is cold No chest pain. No chest pressure Has a chronic dry cough, no change. Some slight white sputum production. Denies fever/chills/sweats Is watching endoleak with Luis. Had dicussed fixing it but this not been required today. Had bladder cancer with TURBT, followup pending 09/18. Eventually in the hospital, his abdominal pain resolved however he continued to get increasingly short of breath. Pulmonology was consulted and his shortness of breath was after be due to his interstitial lung disease. He was started increasing levels of oxygen, initially 3L, 6L and then high flow oxygen. Arrangements were being made for the patient to transition to hospice met on 09/20/2022, at 920, and nurse messaged me that the patient stopped breathing. Upon further evaluation, he did have a breath sound did have a coronary flex he did not have a gag reflex. He was pronounced around 9:20 AM 09/20/2022. Additional Data Attending physician: Adrianna Evans MD Coding Level of Care Code None Diagnoses Abdominal pain R10.9 Pulmonary edema J81.1 Hyponatremia E87.1 History of AAA (abdominal aortic aneurysm) repair Z98.890 Interstitial lung disease J84.9 Bladder cancer C67.9 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 Depression F32.A Hypomagnesemia E83.42 Orthostasis I95.1 Time Spent (min) 30
--- NOTE | 2022-09-20 12:29 | Discharge Summary ---
Date of Service September 20, 2022 Principal Diagnosis ILD Discharge Exam Patient is Discharge Data Allergies Allergy/AdvReac Type Severity Reaction Status Date / Time simvastatin Allergy Intermediate RASH, Verified 08/10/22 08:00 ITCHING Penicillins Allergy Unknown DOESN'T Verified 08/10/22 08:00 KNOW nintedanib AdvReac Intermediate sickto Verified 08/10/22 08:00 stomach tadalafil AdvReac Intermediate RUNNY Verified 08/10/22 08:00 NOSE, ACHINESS atorvastatin AdvReac Mild MUSCLE Verified 08/10/22 08:00 ACHES dulaglutide [From Trulicity] AdvReac Nausea Verified 08/10/22 08:00 Consultations 09/13/22 12:31 ED Decision to Admit Stat 09/14/22 14:38 Consult Nephrology Routine 09/18/22 10:10 Consult Pulmonology Routine 09/19/22 16:39 Consult Palliative Care Routine Ordered Studies 09/13/22 09:12 CT abd pelvis IV con only Stat Hospital Course (1) Abdominal pain: (2) Pulmonary edema: (3) Hyponatremia: (4) History of AAA (abdominal aortic aneurysm) repair: (5) Interstitial lung disease: (6) Bladder cancer: noted h/o TURBT for such u/a this admission wnl; not suspicious for UTI (7) 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: last a1c 6.1% earlier this year is only on metformin at home BSGs very well controlled while here loose novolog SSI (8) Hypothyroidism: TSH 3.5 cont synthroid (9) Atrial fibrillation with rapid ventricular response: permanent a.fib cont eliquis cont metoprolol cont digoxin (level is therapeutic) cont verapamil rates were mildly high upon presentation, now <100 (10) HTN (hypertension): Low BP, will hold anti HTN for now (11) Depression: On Fluoxetine (12) Hypomagnesemia: resolved (13) Orthostasis: positive orthostasis Will start Midodrine 5mg TID Plan Total Time Total Time Spent Total Time Spent (In Minutes): 35 Discharge Plan Discharge Items Patient Disposition: Discharge Diagnosis: Interstitial Lung Disease Other Date/Time: 09/20/22 09:20 Coding Level of Care Code None Diagnoses Abdominal pain R10.9 Pulmonary edema J81.1 Hyponatremia E87.1 History of AAA (abdominal aortic aneurysm) repair Z98.890 Interstitial lung disease J84.9 Bladder cancer C67.9 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 Depression F32.A Hypomagnesemia E83.42 Orthostasis I95.1 Time Spent (min) 30
== END 2022-09-20 16:43 | disposition expired | DRG 391 ==
LOC: ED 08:46 → SUATTDRO 13:07 → 1E 13:07 → 2S 09-14 20:46